=== PATIENT | female | born 1940 | race African-American/Black ===

== ENCOUNTER → 2016-10-01 | Outpatient (CLI) | payer BC, MEDICARE ==
[2016-10-01 08:19] LABS: ABSOLUTE BASOPHILS # (AUTO) 0.1 10^3/uL (0.0-0.2); ABSOLUTE EOSINOPHILS # (AUTO) 0.3 10^3/uL (0.0-0.6); ABSOLUTE LYMPHOCYTES (AUTO) 1.6 10^3/uL (0.5-4.7); ABSOLUTE MONOCYTES (AUTO) 0.5 10^3/uL (0.1-1.4); ABSOLUTE NEUT (AUTO) 3.5 10^3/uL (1.7-8.2); BASOPHILS % (AUTO) 0.9 % (0-2); EOSINOPHILS % (AUTO) 5.1 % (0-6); HEMATOCRIT 38.5 % (36.0-47.0); HEMOGLOBIN 13.1 g/dL (12.0-15.5); HGB HCT DIFFERENCE 0.8; LYMPHOCYTES % (AUTO) 26.3 % (13-45); MEAN CORPUSCULAR HEMOGLOBIN 29.9 pg (27.0-33.4); MEAN CORPUSCULAR HGB CONC 33.9 g/dL (32.0-36.0); MEAN CORPUSCULAR VOLUME 88 fl (80-97); MONOCYTES % (AUTO) 8.2 % (3-13); RED BLOOD COUNT 4.36 10^6/uL (3.72-5.28); RED CELL DISTRIBUTION WIDTH 14.3 % (11.5-14.0); SEGMENTED NEUTROPHILS % (AUTO) 59.5 % (42-78); WHITE BLOOD COUNT 5.9 10^3/uL (4.0-10.5)
[2016-10-01 08:39] LABS: ALANINE AMINOTRANSFERASE 22 U/L (9-52); ALKALINE PHOSPHATASE 102 U/L (38-126); ANION GAP 10 (5-19); ASPARTATE AMINO TRANSFERASE 19 U/L (14-36); BILIRUBIN,TOTAL 0.4 mg/dL (0.2-1.3); BLOOD UREA NITROGEN 14 mg/dL (7-20); CALCIUM 9.7 mg/dL (8.4-10.2); CARBON DIOXIDE 30 mmol/L (22-30); CHLORIDE 104 mmol/L (98-107); CHOLESTEROL 146.27 mg/dL (0-200); CREATININE RESULT 1.07 mg/dL (0.52-1.25); Direct HDL 56 mg/dL (>40); GLUCOSE 88 mg/dL (75-110); MAGNESIUM 1.9 mg/dL (1.6-2.3); POTASSIUM 4.4 mmol/L (3.6-5.0); SODIUM 143.6 mmol/L (137-145); TOTAL PROTEIN 7.3 g/dL (6.3-8.2); TRIGLYCERIDES 159 mg/dL (<150)
[2016-10-01 08:50] LABS: DIRECT LDL 63 mg/dL (<100)
[2016-10-01 08:56] LABS: VLDL CHOLESTEROL 31.8 mg/dL (10-31)
[2016-10-01 09:06] LABS: ERYTHROCYTE SEDIMENTATION RATE 40 mm/hr (0-30)
== END ==
LOC: OD 07:27
PROVIDERS: ATTEND Internal Medicine
DX: E11.9 Type 2 diabetes mellitus without complications (principal); J44.9 Chronic obstructive pulmonary disease, unspecified; I25.10 Atherosclerotic heart disease of native coronary artery without angina pectoris; E78.5 Hyperlipidemia, unspecified; M79.1 Myalgia
CPT/HCPCS: 36415; 80053; 80061; 83735; 84443; 85025; 85652

== ENCOUNTER → 2017-03-20 | Outpatient (CLI) | payer MEDICARE ==
[2017-03-20 15:20] LABS: ANION GAP 10 (5-19); BLOOD UREA NITROGEN 17 mg/dL (7-20); CALCIUM 9.6 mg/dL (8.4-10.2); CARBON DIOXIDE 25 mmol/L (22-30); CHLORIDE 104 mmol/L (98-107); CREATININE RESULT 1.26 mg/dL (0.52-1.25); GLUCOSE 98 mg/dL (75-110); POTASSIUM 4.3 mmol/L (3.6-5.0); SODIUM 138.9 mmol/L (137-145)
== END ==
LOC: OD 14:37
PROVIDERS: ATTEND Physician Assistant Surgical
DX: Z01.812 Encounter for preprocedural laboratory examination (principal); I70.90 Unspecified atherosclerosis; I10 Essential (primary) hypertension
CPT/HCPCS: 36415; 80048

== ENCOUNTER 2017-09-04 10:55 | Emergency (ER) | payer MEDICARE ==
[2017-09-04] MEDS ORDERED: ACETAMINOPHEN 325 MG TABLET PO ONE (11:34)
--- NOTE | 2017-09-04 11:37 | ER Document Report ---
ED Fall - General Chief Complaint: Fall Injury Stated Complaint: FALL/HEAD PAIN Time Seen by Provider: 09/04/17 11:33 Mode of Arrival: Ambulatory Information source: Patient Notes: Patient states she was getting in the "[employer] van" after a visit to her family doctor. She states she lost her balance and fell forward and hit her head and left knee on the steps of the band. She denies any other injuries. She denies loss of consciousness. She states she currently has a left-sided headache. Nothing makes it better or worse. It is moderate. It is throbbing. It is constant. She also has a mild left pain in her knee patient states she also feels hungry. TRAVEL OUTSIDE OF THE [place] IN LAST 30 DAYS: No - Related data Allergies/Adverse Reactions: No Known Allergies Allergy (Verified 09/04/17 11:05) Past Medical History - General Information source: Patient - Social History Smoking Status: Current Every Day Smoker Chew tobacco use (# tins/day): No Frequency of alcohol use: None Drug Abuse: None Family History: Reviewed & Not Pertinent Patient has suicidal ideation: No Patient has homicidal ideation: No - Past Medical History Cardiac Medical History: Reports: Hx Heart Attack, Hx Hypercholesterolemia, Hx Hypertension, Hx Peripheral Vascular Disease Pulmonary Medical History: Reports: Hx Bronchitis Denies: Hx Asthma, Hx COPD, Hx Pneumonia Endocrine Medical History: Reports: Hx Diabetes Mellitus Type 2 Renal/ Medical History: Denies: Hx Peritoneal Dialysis Past Surgical History: Reports: Hx Cholecystectomy, Hx Genitourinary Surgery - bladder lift, Hx Hysterectomy, Hx Tonsillectomy, Hx Vascular Surgery - Immunizations Hx Diphtheria, Pertussis, Tetanus Vaccination: Yes Hx Pneumococcal Vaccination: 09/23/09 Review of Systems - Review of Systems Constitutional: denies: Chills, Fever Cardiovascular: denies: Chest pain, Palpitations Respiratory: denies: Cough, Short of breath -: Yes All other systems reviewed and negative Physical Exam - Vital signs Vitals: Temp Pulse Resp BP Pulse Ox 98.6 F 63 18 180/76 H 95 09/04/17 11:24 09/04/17 11:24 09/04/17 11:24 09/04/17 11:24 09/04/17 11:24 Interpretation: Hypertensive - General General appearance: Appears well, Alert - HEENT Head: Normocephalic, Other - Patient has some mild swelling over the left frontal bone. It is tender to palpation. Eyes: Normal Pupils: PERRL - Respiratory Respiratory status: No respiratory distress Chest status: Nontender Breath sounds: Normal Chest palpation: Normal - Cardiovascular Rhythm: Regular Heart sounds: Normal auscultation Murmur: No - Abdominal Inspection: Normal Distension: No distension Bowel sounds: Normal Tenderness: Nontender Organomegaly: No organomegaly - Back Back: Normal, Nontender - Extremities General upper extremity: Normal inspection, Nontender, Normal color, Normal ROM , Normal temperature General lower extremity: Normal inspection, Tender, Normal color, Normal ROM, Normal temperature, Other - Left knee is tender to palpation.. No: Ericka's sign - Neurological Neuro grossly intact: Yes Cognition: Normal Orientation: AAOx4 [place] Coma Scale Eye Opening: Spontaneous Rhonda Coma Scale Verbal: Oriented Rhonda Coma Scale Motor: Obeys Commands [place] Coma Scale Total: 15 Speech: Normal Cranial nerves: Normal Motor strength normal: LUE, RUE, LLE, RLE Sensory: Normal - Psychological Associated symptoms: Normal affect, Normal mood - Skin Skin Temperature: Warm Skin Moisture: Dry Skin Color: Normal Course - Vital Signs Vital signs: Temp Pulse Resp BP Pulse Ox 98.6 F 63 18 180/76 H 100 09/04/17 11:24 09/04/17 11:29 09/04/17 11:29 09/04/17 11:24 09/04/17 11:29 - Diagnostic Test Radiology reviewed: Image reviewed, Reports reviewed - Head CT shows no evidence of acute pathology. Right knee x-ray has no evidence of fracture dislocation Discharge - Discharge Clinical Impression: Forehead contusion Qualifiers: Encounter type: initial encounter Qualified Code(s): S00.83XA - Contusion of other part of head, initial encounter Contusion of left knee Qualifiers: Encounter type: initial encounter Qualified Code(s): S80.02XA - Contusion of left knee, initial encounter Condition: Stable Disposition: HOME, SELF-CARE Instructions: Contusion ([facility]) Additional Instructions: Please call your primary care provider as soon as possible to arrange follow-up Prescriptions: Hydrocodone/Acetaminophen [[place] 5-325 mg Tablet] 1 tab PO Q6 PRN #12 tablet PRN Reason: Forms: Elevated Blood Pressure Referrals: DENIS SALGADO MD [ACTIVE STAFF] - Follow up as needed
--- NOTE | 2017-09-04 12:11 | RADIOLOGY REPORT (SQ) ---
EXAM DESCRIPTION: CT HEAD WITHOUT COMPLETED DATE/TIME: 09/04/2017 11:55 am REASON FOR STUDY: fall/pain COMPARISON: None. TECHNIQUE: Axial images acquired through the brain without intravenous contrast. Images reviewed wi th bone, brain and subdural windows. Images stored on PACS. All CT scanners at this facility use dose modulation, iterative reconstruction, and/or weight based d osing when appropriate to reduce radiation dose to as low as reasonably achievable (ALARA). [facility]: Dose Right [facility]: CareDose [facility]: Dose Right [facility]: Teradose 4D [facility]: [employer] RADIATION DOSE: CT Rad equipment meets quality standard of care and radiation dose reduction techniq ues were employed. CTDIvol: 64.6 mGy. DLP: 1163 mGy-cm. mGy. LIMITATIONS: None. FINDINGS: VENTRICLES: Normal size and contour. CEREBRUM: No masses. No hemorrhage. No midline shift. No evidence for acute infarction. Normal gra y/white matter differentiation. No areas of low density in the white matter. CEREBELLUM: No masses. No hemorrhage. No alteration of density. No evidence for acute infarction. EXTRAAXIAL SPACES: No fluid collections. No masses. ORBITS AND GLOBE: No intra- or extraconal masses. Normal contour of globe without masses. CALVARIUM: No fracture. PARANASAL SINUSES: No fluid or mucosal thickening. SOFT TISSUES: There is a left frontal scalp hematoma. OTHER: No other significant finding. IMPRESSION: Scalp hematoma. No acute intracranial finding. EVIDENCE OF ACUTE STROKE: NO. COMMENT: Quality ID # [id number]: Final reports with documentation of one or more dose reduction techniques (e.g., Automated exposure control, adjustment of the mA and/or kV according to patient size, use of iterative reconstruction technique) TECHNICAL DOCUMENTATION: JOB ID: [id number] [employer]- All Rights Reserved
--- NOTE | 2017-09-04 12:17 | RADIOLOGY REPORT (SQ) ---
EXAM DESCRIPTION: KNEE LEFT 4 VIEW COMPLETED DATE/TIME: 09/04/2017 12:09 pm REASON FOR STUDY: fall/pain COMPARISON: None. NUMBER OF VIEWS: Four views. TECHNIQUE: AP, lateral, and both oblique radiographic images acquired of the left knee. LIMITATIONS: None. FINDINGS: MINERALIZATION: Normal. BONES: No acute fracture or dislocation. No worrisome bone lesions. JOINT: There is narrowing the medial joint compartment with marginal osteophytes. And subchondral sc lerosis. SOFT TISSUES: No soft tissue swelling. No radio-opaque foreign body. OTHER: No other significant finding. IMPRESSION: Degenerative joint disease in the medial compartment. No acute abnormality. TECHNICAL DOCUMENTATION: JOB ID: [id number] [employer]- All Rights Reserved
[2017-09-04 13:09] VITALS: BP 165/70
== END 2017-09-04 13:08 | disposition home or self-care (01) ==
LOC: ER 10:55
DX: S00.83XA Contusion of other part of head, initial encounter (principal); S80.02XA Contusion of left knee, initial encounter; V58.4XXA Person boarding or alighting a pick-up truck or van injured in noncollision transport accident, initial encounter; F17.200 Nicotine dependence, unspecified, uncomplicated; E11.9 Type 2 diabetes mellitus without complications; I10 Essential (primary) hypertension; E78.00 Pure hypercholesterolemia, unspecified; Z90.49 Acquired absence of other specified parts of digestive tract; Z90.710 Acquired absence of both cervix and uterus; I25.2 Old myocardial infarction
CPT/HCPCS: 99284; 73562; 70450; A9270

== ENCOUNTER → 2017-11-29 | Outpatient (CLI) | payer MEDICARE ==
[2017-11-29 08:23] LABS: ABSOLUTE BASOPHILS # (AUTO) 0.1 10^3/uL (0.0-0.2); ABSOLUTE EOSINOPHILS # (AUTO) 0.2 10^3/uL (0.0-0.6); ABSOLUTE LYMPHOCYTES (AUTO) 1.1 10^3/uL (0.5-4.7); ABSOLUTE MONOCYTES (AUTO) 0.4 10^3/uL (0.1-1.4); ABSOLUTE NEUT (AUTO) 3.7 10^3/uL (1.7-8.2); BASOPHILS % (AUTO) 1.3 % (0-2); EOSINOPHILS % (AUTO) 3.5 % (0-6); HEMATOCRIT 39.3 % (36.0-47.0); HEMOGLOBIN 12.9 g/dL (12.0-15.5); LYMPHOCYTES % (AUTO) 20.2 % (13-45); MEAN CORPUSCULAR HEMOGLOBIN 29.5 pg (27.0-33.4); MEAN CORPUSCULAR HGB CONC 32.8 g/dL (32.0-36.0); MEAN CORPUSCULAR VOLUME 90 fl (80-97); MONOCYTES % (AUTO) 7.4 % (3-13); PLATELET COUNT 233 10^3/uL (150-450); RED BLOOD COUNT 4.37 10^6/uL (3.72-5.28); RED CELL DISTRIBUTION WIDTH 14.2 % (11.5-14.0); SEGMENTED NEUTROPHILS % (AUTO) 67.6 % (42-78); TOTAL CELLS COUNTED % (AUTO) 100 %; WHITE BLOOD COUNT 5.5 10^3/uL (4.0-10.5)
[2017-11-29 08:56] LABS: ALANINE AMINOTRANSFERASE 21 U/L (9-52); ALBUMIN 4.2 g/dL (3.5-5.0); ALKALINE PHOSPHATASE 94 U/L (38-126); ANION GAP 7 (5-19); ASPARTATE AMINO TRANSFERASE 18 U/L (14-36); BILIRUBIN,DIRECT 0.4 mg/dL (0.0-0.4); BILIRUBIN,TOTAL 0.7 mg/dL (0.2-1.3); BLOOD UREA NITROGEN 15 mg/dL (7-20); CALCIUM 10.2 mg/dL (8.4-10.2); CARBON DIOXIDE 28 mmol/L (22-30); CHLORIDE 108 mmol/L (98-107); CHOLESTEROL 147.83 mg/dL (0-200); GLUCOSE 97 mg/dL (75-110); POTASSIUM 4.6 mmol/L (3.6-5.0); SODIUM 143.4 mmol/L (137-145); TOTAL PROTEIN 7.1 g/dL (6.3-8.2); TRIGLYCERIDES 107 mg/dL (<150)
[2017-11-29 09:07] LABS: DIRECT LDL 69 mg/dL (<100)
[2017-11-30 12:37] LABS: CREATININE URINE 71.6 mg/dL (Not Estab.); MICROALBUMIN URINE 378.9 ug/mL (Not Estab.)
== END ==
LOC: OD 07:19
PROVIDERS: ATTEND Internal Medicine
DX: E11.9 Type 2 diabetes mellitus without complications (principal); I10 Essential (primary) hypertension; E78.5 Hyperlipidemia, unspecified; R53.83 Other fatigue
CPT/HCPCS: 36415; 80053; 80061; 82043; 82570; 83036; 84443; 85025

== ENCOUNTER 2018-03-02 14:12 | Inpatient (IN) | payer MEDICARE ==
[2018-03-02] MEDS ORDERED: ONDANSETRON 4 MG TAB.RAPDIS PO ONE (14:29)
[2018-03-02] MEDS ORDERED: NORMAL SALINE 1000 ML 1,000 ML IV ONE (14:29)
[2018-03-02] MEDS ORDERED: METOCLOPRAMIDE HCL INJ/PF 10 MG/2 ML SDV IV ONE (14:31)
[2018-03-02] MEDS ORDERED: DIPHENHYDRAMINE HCL 50 MG/ML VIAL IV ONE (14:32)
--- NOTE | 2018-03-02 14:35 | ER Document Report ---
ED Medical Screen (RME) - General Chief Complaint: Abdominal Pain Stated Complaint: BLOOD IN URINE Time Seen by Provider: 03/02/18 14:29 Mode of Arrival: Wheelchair Information source: Patient Notes: This is a 77-year-old female with a history of hypertension, diabetes, dyslipidemia who presents to the emergency room with left flank and left lower quadrant tenderness and association with hematuria, nausea and vomiting. Patient denies fever. Patient's symptoms started yesterday. TRAVEL OUTSIDE OF THE [place] IN LAST 30 DAYS: No - Related Data Allergies/Adverse Reactions: No Known Allergies Allergy (Verified 03/02/18 14:13) Past Medical History - Social History Chew tobacco use (# tins/day): No Frequency of alcohol use: None Drug Abuse: None - Past Medical History Cardiac Medical History: Reports: Hx Heart Attack, Hx Hypercholesterolemia, Hx Hypertension, Hx Peripheral Vascular Disease Pulmonary Medical History: Reports: Hx Bronchitis Denies: Hx Asthma, Hx COPD, Hx Pneumonia Endocrine Medical History: Reports: Hx Diabetes Mellitus Type 2 Renal/ Medical History: Denies: Hx Peritoneal Dialysis Past Surgical History: Reports: Hx Cholecystectomy, Hx Genitourinary Surgery - bladder lift, Hx Hysterectomy, Hx Tonsillectomy, Hx Vascular Surgery - Immunizations Hx Diphtheria, Pertussis, Tetanus Vaccination: Yes Physical Exam - Vital signs Vitals: Temp Pulse Resp BP Pulse Ox 98.3 F 113 H 20 211/112 H 96 03/02/18 14:17 03/02/18 14:17 03/02/18 14:17 03/02/18 14:17 03/02/18 14:17 Course - Vital Signs Vital signs: Temp Pulse Resp BP Pulse Ox 98.3 F 113 H 20 211/112 H 96 03/02/18 14:17 03/02/18 14:17 03/02/18 14:17 03/02/18 14:17 03/02/18 14:17 Doctor's Discharge - Discharge Referrals: DENIS SALGADO MD [Primary Care Provider] - Follow up as needed
[2018-03-02 15:05] LABS: INTERNATIONAL RATION (INR) 0.91; PROTHROMBIN TIME 12.8 SEC (11.4-15.4)
[2018-03-02 15:09] LABS: ABSOLUTE BASOPHILS # (AUTO) 0.1 10^3/uL (0.0-0.2); ABSOLUTE EOSINOPHILS # (AUTO) 0.1 10^3/uL (0.0-0.6); ABSOLUTE LYMPHOCYTES (AUTO) 1.5 10^3/uL (0.5-4.7); ABSOLUTE MONOCYTES (AUTO) 0.6 10^3/uL (0.1-1.4); ABSOLUTE NEUT (AUTO) 4.6 10^3/uL (1.7-8.2); BASOPHILS % (AUTO) 0.9 % (0-2); EOSINOPHILS % (AUTO) 1.2 % (0-6); HEMATOCRIT 37.5 % (36.0-47.0); HEMOGLOBIN 12.9 g/dL (12.0-15.5); LYMPHOCYTES % (AUTO) 21.7 % (13-45); MEAN CORPUSCULAR HEMOGLOBIN 30.7 pg (27.0-33.4); MEAN CORPUSCULAR HGB CONC 34.4 g/dL (32.0-36.0); MEAN CORPUSCULAR VOLUME 89 fl (80-97); PLATELET COUNT 286 10^3/uL (150-450); RED CELL DISTRIBUTION WIDTH 14.4 % (11.5-14.0); SEGMENTED NEUTROPHILS % (AUTO) 67.2 % (42-78); TOTAL CELLS COUNTED % (AUTO) 100 %; WHITE BLOOD COUNT 6.8 10^3/uL (4.0-10.5)
[2018-03-02 15:21] LABS: ALANINE AMINOTRANSFERASE 22 U/L (9-52); ALBUMIN 4.6 g/dL (3.5-5.0); ALKALINE PHOSPHATASE 107 U/L (38-126); ANION GAP 15 (5-19); ASPARTATE AMINO TRANSFERASE 22 U/L (14-36); BILIRUBIN,DIRECT 0.3 mg/dL (0.0-0.4); BILIRUBIN,TOTAL 0.8 mg/dL (0.2-1.3); BLOOD UREA NITROGEN 12 mg/dL (7-20); CALCIUM 10.5 mg/dL (8.4-10.2); CARBON DIOXIDE 25 mmol/L (22-30); CHLORIDE 102 mmol/L (98-107); GLUCOSE 120 mg/dL (75-110); POTASSIUM 3.5 mmol/L (3.6-5.0); SODIUM 141.6 mmol/L (137-145); TOTAL PROTEIN 7.9 g/dL (6.3-8.2)
[2018-03-02 15:36] LABS: APPEARANCE,URINE CLOUDY; BILIRUBIN,URINE NEGATIVE (NEGATIVE); COLOR,URINE YELLOW; GLUCOSE, URINE NEGATIVE (NEGATIVE); KETONES,URINE NEGATIVE (NEGATIVE); LEUKOCYTE ESTERASE,URINE NEGATIVE (NEGATIVE); NITRITE,URINE NEGATIVE (NEGATIVE); PROTEIN,URINE 100 mg/dL (NEGATIVE); UROBILINOGEN,URINE NEGATIVE mg/dL (<2.0)
--- NOTE | 2018-03-02 15:42 | ER Document Report ---
ED GI/ - General Chief Complaint: Abdominal Pain Stated Complaint: BLOOD IN URINE Time Seen by Provider: 03/02/18 14:29 Mode of Arrival: Wheelchair Notes: Patient says that she is experiencing pain in the left front side area starting yesterday and then also noting some blood in her urine beginning yesterday which continues today. Patient had a similar occurrence about 2 years ago and it lasted a couple of days and went away. She has not had any fever. No nausea or vomiting or diarrhea. Denies any chest pains. Denies shortness of breath or difficulty breathing. She only has blood in her urine but no other UTI symptoms. Has never had kidney stones. Patient has had a hysterectomy, cholecystectomy, bladder surgery, and think she may have had her appendix removed. Patient did not take her blood pressure medicines this morning. She is on losartan 100 mg daily. TRAVEL OUTSIDE OF THE [place] IN LAST 30 DAYS: No - Related Data Allergies/Adverse Reactions: No Known Allergies Allergy (Verified 03/02/18 14:13) Past Medical History - General Information source: Patient - Social History Smoking Status: Current Every Day Smoker Chew tobacco use (# tins/day): No Frequency of alcohol use: None Drug Abuse: None Family History: Reviewed & Not Pertinent Patient has suicidal ideation: No Patient has homicidal ideation: No - Past Medical History Cardiac Medical History: Reports: Hx Heart Attack, Hx Hypercholesterolemia, Hx Hypertension, Hx Peripheral Vascular Disease Pulmonary Medical History: Reports: Hx Bronchitis Neurological Medical History: Reports: Other - Neuropathy Endocrine Medical History: Reports: Hx Diabetes Mellitus Type 2 Renal/ Medical History: Denies: Hx End Stage Renal Disease, Hx Renal Insufficiency Malignancy Medical History: Reports: None GI Medical History: Reports: Hx Gastroesophageal Reflux Disease Past Surgical History: Reports: Hx Cholecystectomy, Hx Genitourinary Surgery - bladder lift, Hx Hysterectomy, Hx Tonsillectomy, Hx Vascular Surgery - Immunizations Hx Diphtheria, Pertussis, Tetanus Vaccination: Yes Hx Pneumococcal Vaccination: 09/23/09 Review of Systems - Review of Systems Notes: REVIEW OF SYSTEMS: CONSTITUTIONAL : Denies fever. EENT: Denies eye, ear, nose or mouth or throat pain or other symptoms. CARDIOVASCULAR: Denies chest pain. RESPIRATORY: Denies cough, chest congestion, or shortness of breath. GASTROINTESTINAL: See HPI. Not passing any blood in bowel movements. GENITOURINARY: Denies difficulty or painful urinating, urinary frequency, just blood in urine. See HPI. MUSCULOSKELETAL: Denies back or neck pain. Denies joint pain or swelling. SKIN: Denies rash or skin lesions. NEUROLOGICAL: Denies LOC or altered mental status. Denies headache. Denies sensory loss or motor deficits. ALL OTHER SYSTEMS REVIEWED AND NEGATIVE. Physical Exam - Vital signs Vitals: Temp Pulse Resp BP Pulse Ox 98.3 F 113 H 20 211/112 H 96 03/02/18 14:17 03/02/18 14:17 03/02/18 14:17 03/02/18 14:17 03/02/18 14:17 Interpretation: Hypertensive, Tachycardic - Notes Notes: PHYSICAL EXAMINATION: GENERAL: Well-appearing, in no acute distress. Blood pressure 211/112. Pulse 113 in triage. HEAD: Atraumatic, normocephalic. EYES: Pupils equal round and reactive to light, extraocular movements intact. NECK: Normal range of motion, supple. LUNGS: Breath sounds clear and equal bilaterally. HEART: Regular rate and rhythm without murmurs. Not tachycardic, heart rate 90 at bedside by me. ABDOMEN: Soft, not very tender anywhere. No guarding or rebound. No masses. No bruits heard. BACK: No tenderness throughout entire back. EXTREMITIES: Normal range of motion without pain. NEUROLOGICAL: Normal speech, normal gait. Normal sensory, motor, and reflex exams. Awake, alert, and oriented x3. Cranial nerves normal. PSYCH: Normal mood, normal affect. SKIN: Warm, dry, no rashes. Course - Re-evaluation Re-evalutation: 03/02/18 18:12 Patient's urinalysis is loaded with red blood cells but no bacteria. Does have some white cells present. 03/02/18 18:[address] shows significant mass in the right upper pole of the right kidney which looks likely to be some form of cancer. Involvement of the ureter and bladder appears likely. The left kidney appears to be atrophic. Patient also has a infrarenal abdominal aortic aneurysm measuring 3.3 x 3 cm. Also present is a ventral hernia containing transverse colon without obstruction and constipation Spoke with on-call urology, Dr. Pena, and he will see the patient and recommend disposition. I have made patient aware of her CT findings that indicate some form of tumor or cancer. 03/02/18 18:45 Patient was seen by Dr Pena, spoke with hospitalist who will admit the patient. - Vital Signs Vital signs: Temp Pulse Resp BP Pulse Ox 98.3 F 113 H 18 146/95 H 94 03/02/18 14:17 03/02/18 14:17 03/02/18 17:01 03/02/18 17:01 03/02/18 17:01 - Laboratory Result Diagrams: 03/02/18 14:50 03/02/18 14:50 Laboratory results interpreted by me: 03/02/18 03/02/18 03/02/18 14:50 14:50 14:50 RDW 14.4 H Potassium 3.5 L Est GFR (Non-Af Amer) 58 L Glucose 120 H Calcium 10.5 H Urine Protein 100 H Urine Blood LARGE H Discharge - Discharge Clinical Impression: Hematuria, Kidney malignant neoplasm Condition: Stable Disposition: ADMITTED INPATIENT Admitting Provider: Hospitalist Unit Admitted: Medical Floor Referrals: DENIS SALGADO MD [Primary Care Provider] - Follow up as needed
[2018-03-02] MEDS ORDERED: LOSARTAN POTASSIUM 50 MG TABLET PO ONE (15:47)
--- NOTE | 2018-03-02 17:22 | RADIOLOGY REPORT (SQ) ---
EXAM DESCRIPTION: CT ABD/PELVIS WITH IV ONLY COMPLETED DATE/TIME: 03/02/2018 4:35 pm REASON FOR STUDY: Left side and flank pain with hematuria . Left upper and left lower quadrant pain . COMPARISON: None. TECHNIQUE: CT scan of the abdomen and pelvis performed using helical scanning technique with dynamic intravenous contrast injection. No oral contrast. Images reviewed with lung, soft tissue, and bone windows. Reconstructed coronal and sagittal MPR images reviewed. Delayed images for evaluation of the urinary system also acquired. All images stored on PACS. All CT scanners at this facility use dose modulation, iterative reconstruction, and/or weight based d osing when appropriate to reduce radiation dose to as low as reasonably achievable (ALARA). [facility]: Dose Right [facility]: CareDose [facility]: Dose Right [facility]: Teradose 4D [facility]: [employer] CONTRAST TYPE AND DOSE: contrast/concentration: Isovue 370.00 mg/ml; Total Contrast Delivered: 62.0 ml; Total Saline Delivered: 65.0 ml RENAL FUNCTION: Creatinine: 0.94. RADIATION DOSE: CT Rad equipment meets quality standard of care and radiation dose reduction techniq ues were employed. CTDIvol: 5.0 - 6.2 mGy. DLP: 515 mGy-cm.. LIMITATIONS: None. FINDINGS: LOWER CHEST: No abnormality seen. LIVER: Small rounded areas of decreased attenuation in right and left lobes of liver too small to nidhi racterize. SPLEEN: No abnormality. . PANCREAS: No abnormality. GALLBLADDER: Status post cholecystectomy. ADRENAL GLANDS: Both adrenals are prominent consistent with hyperplasia. RIGHT KIDNEY AND URETER: There is evidence of a heterogeneous mass in the upper pole of the right kid evelyn with associated distortion of the right upper collecting system. There are calcifications in the region of the upper pole collecting system. The finding could represent tumor invasion from the col lecting system into the kidney versus primary renal tumor invading the collecting system. There is a n extrarenal pelvis of the right kidney and a ectasia of the proximal right ureter. The renal pelvis demonstrates increased attenuation send suggesting hemorrhage within the collecting system or mass. LEFT KIDNEY AND URETER: There is an atrophic left kidney with poor excretion. The findings are most consistent with changes of chronic ischemia of the left kidney with poor function. Renal vascular ca lcification and calcification in the left renal artery noted. There is evidence of areas of decrease d attenuation in the renal parenchyma which could be secondary to infarction and less likely infectio n. AORTA AND VESSELS: There is a saccular aneurysm of the infrarenal abdominal aorta measuring 3.3 cm i n transverse diameter by 3 cm in AP diameter. Diffuse atherosclerotic change of the abdominal aorta with atherosclerotic stenosis of origin of the celiac artery, diffuse atherosclerotic change superio r mesenteric artery, and and occlusion of proximal inferior mesenteric artery noted. There is a ecta howie of the proximal iliac arteries. Diffuse atherosclerotic change within the external/internal wilbert c arteries and femoral arteries noted. APPENDIX: Absent by history. LARGE AND SMALL BOWEL: Constipation. RETROPERITONEUM: There is no retroperitoneal adenopathy. ABDOMINAL WALL: Prominent ventral hernia of the anterior abdominal wall containing transverse colon. Changes of constipation. PELVIS: URINARY BLADDER: There is a focal ovoid area of increased attenuation posterior right 8th u rinary bladder. The possibility of mass and/or possibly hemorrhage in the bladder cannot be excluded . Otherwise the urinary bladder is mildly distended and demonstrating no significant additional abdo men modalities. UTERUS: Absent. BONES: Thoracic and lumbar spondylosis. . IMPRESSION: 1. There is evidence of marked distortion of the collecting system of the right kidney with adjacent mass extending into the upper pole of the right kidney. The findings could represent t ransition cell carcinoma invading the kidney or renal cell carcinoma of the upper pole of the right k idney invading the collecting system. There is a prominent extrarenal pelvis on the right with hyper density in the collecting system and proximal ureter with possible due mass and/or hemorrhage not ex cluded. There is a focal area of increased density noted in the posterior right side of the urinary bladder with hemorrhage or mass not excluded. consultation recommended. 2. Findings consistent with atrophic poorly functioning left kidney most consistent with chronic isc hemic change. Changes of the renal parenchyma could be secondary to renal infarction. 3. Diffuse significant atherosclerotic change of the entire aorta iliac and femoral vessels with fus iform aneurysm infrarenal abdominal aorta are measuring 3.3 x 3 cm. 4. Evidence of a ventral hernia containing transverse colon without obstruction. Constipation. TECHNICAL DOCUMENTATION: JOB ID: [id number]-69 Quality ID # [id number]: Final reports with documentation of one or more dose reduction techniques (e.g., Au tomated exposure control, adjustment of the mA and/or kV according to patient size, use of iterative reconstruction technique) 2010 [employer]- All Rights Reserved Reading location - IP/workstation name: [email or web address]
[2018-03-02] MEDS ORDERED: DEXTROSE 50%-WATER 25 GM/50 ML DISP.SYRIN IV PRN ×4 (19:29)
[2018-03-02] MEDS ORDERED: GLUCAGON,HUMAN RECOMB 1 MG INJ IM PRN (19:29)
[2018-03-02] MEDS ORDERED: DEXTROSE 40% GEL 15 GM TUBE PO PRN ×4 (19:29)
[2018-03-02] MEDS ORDERED: IPRATROPIUM/ALBUTEROL 0.5-2.5 MG/3 ML AMPUL NEB PRN (19:29)
[2018-03-02] MEDS ORDERED: GLUCAGON,HUMAN RECOMB 1 MG INJ SUBCUT PRN (19:29)
[2018-03-02] MEDS ORDERED: ACETAMINOPHEN 325 MG TABLET PO PRN (19:29)
[2018-03-02] MEDS ORDERED: MAGNESIUM HYDROXIDE SUSP 30 ML UDCUP PO ONE (19:33)
[2018-03-02] MEDS: NORMAL SALINE 1000 ML 1,000 ML IV PRN (20:46)
[2018-03-02] MEDS ORDERED: NICOTINE 7 MG/24 HR PATCH.TD24 TD ONE (21:45)
[2018-03-02] MEDS: HEPARIN SOD (PORCINE) 5,000 UNIT/ML 1 ML SYRINGE SUBCUT SCH (22:25)
[2018-03-02] MEDS: ENALAPRILAT DIHYDRATE INJ/PF 1.25 MG/1 ML SDV IV PRN (22:25)
[2018-03-03] MEDS ORDERED: HYDRALAZINE HCL INJ/PF 20 MG/1 ML SDV ONE (00:29)
--- NOTE | 2018-03-03 00:45 | PDOC H&P ---
History of Present Illness Admission Date/PCP: 03/02/18 19:12 DENIS SALGADO, Patient complains of: Bloody urine History of Present Illness: JERILYN MCCARTY is a 77 year old female with history of diabetes, hypertension, COPD , chronic bronchitis and tobacco dependence. Presenting with 24 hours of constipation, hematuria associated with left lower quadrant pain. She denies fever chills she has had some nausea without vomiting. In the emergency room she is found to have hematuria, constipation and CT abdomen pelvis reveals masses of the right kidney, ureter and bladder. She receives symptomatic management and is referred to the hospitalist for admission. Patient recalls one previous episode several years ago which was short lived and resolved spontaneously without intervention. She denies any new medication use or anticoagulation. Past Medical History Cardiac Medical History: Reports: Myocardial Infarction, Hyperlipidema, Hypertension, Peripheral Vascular Disease Pulmonary Medical History: Reports: Bronchitis Denies: Asthma, Chronic Obstructive Pulmonary Disease (COPD), Pneumonia Neurological Medical History: Reports: Other - Neuropathy Endocrine Medical History: Reports: Diabetes Mellitus Type 2 Renal/ Medical History: Denies: End Stage Renal Disease Malignancy Medical History: Reports: None GI Medical History: Reports: Gastroesophageal Reflux Disease Past Surgical History Past Surgical History: Reports: Cholecystectomy, Hysterectomy, Tonsillectomy, Vascular Surgery Social History Information Source: Patient, [facility] Records Smoking Status: Current Every Day Smoker Frequency of Alcohol Use: None Hx Recreational Drug Use: No Drugs: None Hx Prescription Drug Abuse: No - Advance Directive Resuscitation Status: Full Code Family History Family History: Reviewed & Not Pertinent Parental Family History Reviewed: Yes Children Family History Reviewed: Yes Sibling(s) Family History Reviewed.: Yes Medication/Allergy Home Medications: Albuterol Sulfate [Ventolin HFA MDI 18 GM] 1 puff IH Q4HP PRN #17 gm 12/29/12 Aspirin [Aspirin 81 mg Chewable Tablet] 81 mg PO DAILY 07/17/15 Atorvastatin Calcium [Lipitor 80 mg Tablet] 80 mg PO DAILY 07/17/15 Gabapentin [Neurontin 300 mg Capsule] 300 mg PO BID 07/17/15 Metformin HCl [Glucophage 500 mg Tablet] 500 mg PO BID 07/17/15 Metoprolol Succinate [Toprol XL 100 mg Tablet] 100 mg PO DAILY 07/17/15 Omeprazole [Prilosec] 20 mg PO DAILY 07/17/15 Albuterol Sulfate [Proair HFA Inhalation Aerosol 8.5 gm MDI] 2 puff IH QIDP PRN #0 hfa.aer.ad 07/18/15 Aspirin [Aspirin 81 mg Chewable Tablet] 81 mg PO QHS #0 tab.chew 07/18/15 Atorvastatin Calcium [Lipitor 80 mg Tablet] 80 mg PO QHS #0 tablet 07/18/15 Gabapentin [Neurontin 300 mg Capsule] 300 mg PO Q12 #0 capsule 07/18/15 Lisinopril [Prinivil 10 mg Tablet] 10 mg PO DAILY #0 tablet 07/18/15 Metformin HCl [Glucophage 500 mg Tablet] 500 mg PO BIDACBS #0 tablet 07/18/15 Metoprolol Tartrate [Lopressor 50 mg Tablet] 50 mg PO Q12 #0 tablet 07/18/15 Hydrocodone/Acetaminophen [[place] 5-325 mg Tablet] 1 tab PO Q6 PRN #12 tablet Allergies/Adverse Reactions: No Known Allergies Allergy (Verified 03/02/18 14:13) Review of Systems Constitutional: PRESENT: as per HPI, anorexia, fatigue, weakness, weight loss. ABSENT: fever(s), headache(s), night sweats Eyes: ABSENT: visual disturbances Ears: ABSENT: hearing changes Cardiovascular: ABSENT: chest pain, dyspnea on exertion, edema, orthropnea, palpitations Respiratory: PRESENT: as per HPI, cough, other - Chronic nonproductive cough Gastrointestinal: PRESENT: as per HPI, constipation, nausea Genitourinary: PRESENT: as per HPI, hematuria Musculoskeletal: ABSENT: joint swelling Integumentary: ABSENT: rash, wounds Neurological: ABSENT: abnormal gait, abnormal speech, confusion, dizziness, focal weakness, syncope Psychiatric: ABSENT: anxiety, depression, homidical ideation, suicidal ideation Endocrine: ABSENT: cold intolerance, heat intolerance, polydipsia, polyuria Hematologic/Lymphatic: ABSENT: easy bleeding, easy bruising Physical Exam Vital Signs: Temp Pulse Resp BP Pulse Ox 98.3 F 113 H 16 153/89 H 91 L 03/02/18 14:17 03/02/18 14:17 03/02/18 23:01 03/02/18 23:01 03/02/18 23:01 General appearance: PRESENT: cooperative, mild distress. ABSENT: hard of hearing, severe distress Head exam: PRESENT: atraumatic, normocephalic Eye exam: PRESENT: conjunctiva pink, EOMI, PERRLA. ABSENT: scleral icterus Ear exam: PRESENT: normal external ear exam Mouth exam: PRESENT: moist, tongue midline Neck exam: ABSENT: carotid bruit, JVD, lymphadenopathy, thyromegaly Respiratory exam: PRESENT: crackles, prolonged expiratory phas, symmetrical. ABSENT: rhonchi, stridor, tachypnea Cardiovascular exam: PRESENT: RRR. ABSENT: diastolic murmur, rubs, systolic murmur Pulses: PRESENT: normal dorsalis pedis pul Vascular exam: PRESENT: normal capillary refill GI/Abdominal exam: PRESENT: hypoactive bowel sounds, tenderness - Left lower quadrant. ABSENT: ascites, distended, firm, rebound Rectal exam: PRESENT: deferred Extremities exam: PRESENT: full ROM. ABSENT: calf tenderness, clubbing, pedal edema Neurological exam: PRESENT: alert, awake, oriented to person, oriented to place , oriented to time, oriented to situation, CN II-XII grossly intact. ABSENT: motor sensory deficit Psychiatric exam: PRESENT: appropriate affect, normal mood. ABSENT: homicidal ideation, suicidal ideation Skin exam: PRESENT: dry, intact, warm. ABSENT: cyanosis, rash Results Impressions: Abdomen/Pelvis CT 03/02/18 15:50 IMPRESSION: 1. There is evidence of marked distortion of the collecting system of the right kidney with adjacent mass extending into the upper pole of the right kidney. The findings could represent transition cell carcinoma invading the kidney or renal cell carcinoma of the upper pole of the right kidney invading the collecting system. There is a prominent extrarenal pelvis on the right with hyperdensity in the collecting system and proximal ureter with possible due mass and/or hemorrhage not excluded. There is a focal area of increased density noted in the posterior right side of the urinary bladder with hemorrhage or mass not excluded. consultation recommended. 2. Findings consistent with atrophic poorly functioning left kidney most consistent with chronic ischemic change. Changes of the renal parenchyma could be secondary to renal infarction. 3. Diffuse significant atherosclerotic change of the entire aorta iliac and femoral vessels with fusiform aneurysm infrarenal abdominal aorta are measuring 3.3 x 3 cm. 4. Evidence of a ventral hernia containing transverse colon without obstruction. Constipation. Assessment & Plan - Diagnosis (1) Kidney malignant neoplasm Is this a current diagnosis for this admission?: Yes Plan: Telemetry admission, hydration, urology and oncology consult. (2) Hematuria Is this a current diagnosis for this admission?: Yes Plan: Secondary to #1, follow-up PT/INR and a.m. CBC (3) Constipation Is this a current diagnosis for this admission?: Yes Plan: Lactulose and Colace (4) Diabetes Is this a current diagnosis for this admission?: Yes Plan: Home regiment with Humalog sliding scale (5) COPD exacerbation Is this a current diagnosis for this admission?: Yes Plan: Incentive spirometry and DuoNeb scheduled. Encourage incentive spirometry (6) Hypertensive urgency Is this a current diagnosis for this admission?: Yes Plan: Without tachycardia, home regiment with as needed Vasotec and hydralazine. - Time Time Spent: 50 to 70 Minutes - Inpatient Certification Medical Necessity: Need Close Monitoring Due to Risk of Patient Decompensation
[2018-03-03] MEDS: HYDRALAZINE HCL INJ/PF 20 MG/1 ML SDV IV PRN ×4 (01:04→23:54)
[2018-03-03] MEDS: ONDANSETRON HCL INJ/PF 4 MG/2 ML SDV IV PRN ×4 (01:53→20:13)
[2018-03-03] MEDS: FENTANYL CITRATE INJ/PF 100 MCG/2 ML AMPUL IV PRN ×2 (02:43→08:27)
[2018-03-03] MEDS: NORMAL SALINE 1000 ML 1,000 ML IV PRN (02:44)
[2018-03-03] MEDS ORDERED: NITROGLYCERIN 2% OINTMENT 1 GM PACKET ONE (03:31)
[2018-03-03] MEDS ORDERED: NITROGLYCERIN 2% OINTMENT 1 GM PACKET TP ONE (03:45)
[2018-03-03] MEDS ORDERED: FUROSEMIDE INJ/PF 40 MG/4 ML SDV IV ONE (03:45)
[2018-03-03] MEDS: ENALAPRILAT DIHYDRATE INJ/PF 1.25 MG/1 ML SDV IV PRN (04:54)
[2018-03-03 05:32] LABS: ABSOLUTE LYMPHOCYTES (AUTO) 0.6 10^3/uL (0.5-4.7); ABSOLUTE MONOCYTES (AUTO) 0.4 10^3/uL (0.1-1.4); ABSOLUTE NEUT (AUTO) 7.9 10^3/uL (1.7-8.2); BASOPHILS % (AUTO) 0.4 % (0-2); EOSINOPHILS % (AUTO) 0.2 % (0-6); HEMATOCRIT 38.7 % (36.0-47.0); HEMOGLOBIN 13.1 g/dL (12.0-15.5); LYMPHOCYTES % (AUTO) 7.2 % (13-45); MEAN CORPUSCULAR HEMOGLOBIN 30.6 pg (27.0-33.4); MEAN CORPUSCULAR HGB CONC 33.9 g/dL (32.0-36.0); MEAN CORPUSCULAR VOLUME 90 fl (80-97); MONOCYTES % (AUTO) 4.4 % (3-13); PLATELET COUNT 257 10^3/uL (150-450); RED BLOOD COUNT 4.29 10^6/uL (3.72-5.28); RED CELL DISTRIBUTION WIDTH 14.7 % (11.5-14.0); SEGMENTED NEUTROPHILS % (AUTO) 87.8 % (42-78); TOTAL CELLS COUNTED % (AUTO) 100 %
[2018-03-03 05:55] LABS: ANION GAP 16 (5-19); BLOOD UREA NITROGEN 12 mg/dL (7-20); CALCIUM 9.8 mg/dL (8.4-10.2); CARBON DIOXIDE 26 mmol/L (22-30); CHLORIDE 102 mmol/L (98-107); GLUCOSE 158 mg/dL (75-110); POTASSIUM 3.1 mmol/L (3.6-5.0); SODIUM 144.3 mmol/L (137-145)
[2018-03-03] MEDS: HEPARIN SOD (PORCINE) 5,000 UNIT/ML 1 ML SYRINGE SUBCUT SCH ×3 (06:06→21:10)
[2018-03-03] MEDS: IPRATROPIUM/ALBUTEROL 0.5-2.5 MG/3 ML AMPUL NEB SCH ×2 (08:24→16:18)
[2018-03-03] MEDS ORDERED: NORMAL SALINE 1000 ML 1,000 ML IV PRN (08:39)
--- NOTE | 2018-03-03 08:44 | PDOC PROGRESS REPORT ---
Subjective Progress Note for:: 03/03/18 Subjective:: The patient continues to have abdominal pain. We might be dealing with an incarcerated abdominal hernia. Surgery was consulted by hematology oncology. Reason For Visit: RIGHT RENAL, BLADDER MASS,HTN URGENCY Physical Exam Vital Signs: Temp Pulse Resp BP Pulse Ox 99.2 F 97 18 181/76 H 97 03/03/18 07:13 03/03/18 07:13 03/03/18 07:13 03/03/18 07:13 03/03/18 07:13 Intake & Output 03/02/18 03/03/18 03/04/18 06:59 06:59 06:59 Intake Total 1250 Output Total 600 Balance 650 Weight 58.4 kg General appearance: PRESENT: severe distress Head exam: PRESENT: atraumatic Eye exam: PRESENT: conjunctival injection Mouth exam: PRESENT: dry mucosa Neck exam: PRESENT: carotid bruit. ABSENT: JVD Cardiovascular exam: PRESENT: RRR, +S1, +S2 Pulses: PRESENT: +1 pedal pulses bilateral GI/Abdominal exam: PRESENT: tenderness. ABSENT: guarding Extremities exam: PRESENT: full ROM Musculoskeletal exam: PRESENT: ambulatory Neurological exam: PRESENT: alert, awake Psychiatric exam: PRESENT: anxious Results Laboratory Results: 03/03/18 04:37 03/03/18 04:37 03/03/18 03/03/18 04:37 04:37 WBC 9.0 RBC 4.29 Hgb 13.1 Hct 38.7 MCV 90 MCH 30.6 MCHC 33.9 RDW 14.7 H Plt Count 257 Seg Neutrophils % 87.8 H Lymphocytes % 7.2 L Monocytes % 4.4 Eosinophils % 0.2 Basophils % 0.4 Absolute Neutrophils 7.9 Absolute Lymphocytes 0.6 Absolute Monocytes 0.4 Absolute Eosinophils 0.0 Absolute Basophils 0.0 Sodium 144.3 Potassium 3.1 L Chloride 102 Carbon Dioxide 26 Anion Gap 16 BUN 12 Creatinine 0.95 Est GFR ( Amer) > 60 Est GFR (Non-Af Amer) 57 L Glucose 158 H Calcium 9.8 Impressions: Abdomen/Pelvis CT 03/02/18 15:50 IMPRESSION: 1. There is evidence of marked distortion of the collecting system of the right kidney with adjacent mass extending into the upper pole of the right kidney. The findings could represent transition cell carcinoma invading the kidney or renal cell carcinoma of the upper pole of the right kidney invading the collecting system. There is a prominent extrarenal pelvis on the right with hyperdensity in the collecting system and proximal ureter with possible due mass and/or hemorrhage not excluded. There is a focal area of increased density noted in the posterior right side of the urinary bladder with hemorrhage or mass not excluded. consultation recommended. 2. Findings consistent with atrophic poorly functioning left kidney most consistent with chronic ischemic change. Changes of the renal parenchyma could be secondary to renal infarction. 3. Diffuse significant atherosclerotic change of the entire aorta iliac and femoral vessels with fusiform aneurysm infrarenal abdominal aorta are measuring 3.3 x 3 cm. 4. Evidence of a ventral hernia containing transverse colon without obstruction. Constipation.
--- NOTE | 2018-03-03 08:45 | PDOC CONSULTATION ---
Consultation Consult Date: 03/03/18 Attending physician:: DENIS SALGADO Consult reason:: R kidney mass, upper ureter, bladder History of Present Illness Admission Date/PCP: 03/02/18 19:12 DENIS SALGADO, Patient complains of: LLQ pain, n/v, constipation, hematuria History of Present Illness: JERILYN MCCARTY is a 77 year old female with recent history of left abdominal pain. She has a known left ventral hernia, and she notes that over the last few years it has given her some discomfort. However, over the last 2 days she has had severe pain, uncontrolled, nausea and vomiting, she is also had a few month history of hematuria, in the last couple weeks she has had it more frequently, upon admission she had CT of the abdomen pelvis, this indicated a right kidney mass, involving the ureter, there may be a bladder mass as well, the left kidney is atrophic, of note she does have a ventral hernia containing transverse colon and chronic constipation noted. This morning she still having quite a bit of abdominal pain, tenderness to palpation of the area of hernia, she is unable to tolerate p.o. right now. Past Medical History Cardiac Medical History: Reports: Myocardial Infarction, Hyperlipidema, Hypertension, Peripheral Vascular Disease Pulmonary Medical History: Reports: Bronchitis Denies: Asthma, Chronic Obstructive Pulmonary Disease (COPD), Pneumonia Neurological Medical History: Reports: Other - Neuropathy Endocrine Medical History: Reports: Diabetes Mellitus Type 2 Renal/ Medical History: Denies: End Stage Renal Disease Malignancy Medical History: Reports: None GI Medical History: Reports: Gastroesophageal Reflux Disease Past Surgical History Past Surgical History: Reports: Cholecystectomy, Hysterectomy, Tonsillectomy, Vascular Surgery Social History Information Source: Patient Smoking Status: Current Every Day Smoker Cigarettes Packs Per Day: 1 Number of Years Smokin Frequency of Alcohol Use: None Hx Recreational Drug Use: No Drugs: None Hx Prescription Drug Abuse: No - Advance Directive Resuscitation Status: Full Code Family History Family History: Reviewed & Not Pertinent Parental Family History Reviewed: Yes Children Family History Reviewed: Yes Sibling(s) Family History Reviewed.: Yes Medication/Allergy Home Medications: Atorvastatin Calcium [Lipitor] 80 mg PO DAILY 03/03/18 Gabapentin [Gabapentin] 300 mg PO DAILY 03/03/18 Losartan Potassium [Losartan Potassium] 100 mg PO DAILY 03/03/18 Metformin HCl [Metformin HCl] 500 mg PO BID 03/03/18 Omeprazole [Omeprazole] 20 mg PO DAILY 03/03/18 Allergies/Adverse Reactions: No Known Allergies Allergy (Verified 03/02/18 14:13) Review of Systems Constitutional: PRESENT: anorexia, fatigue, weakness, weight loss Cardiovascular: ABSENT: chest pain, dyspnea on exertion, edema, orthropnea, palpitations Gastrointestinal: PRESENT: abdominal pain, constipation Genitourinary: PRESENT: hematuria Neurological: ABSENT: abnormal gait, abnormal speech, confusion, dizziness, focal weakness, syncope Physical Exam Vital Signs: Temp Pulse Resp BP Pulse Ox 99.2 F 97 18 181/76 H 97 03/03/18 07:13 03/03/18 07:13 03/03/18 07:13 03/03/18 07:13 03/03/18 07:13 Intake & Output 03/02/18 03/03/18 03/04/18 06:59 06:59 06:59 Intake Total 1250 Output Total 600 Balance 650 Weight 58.4 kg General appearance: PRESENT: no acute distress, well-developed, well-nourished Head exam: PRESENT: atraumatic, normocephalic Eye exam: PRESENT: conjunctiva pink, EOMI, PERRLA. ABSENT: scleral icterus Ear exam: PRESENT: normal external ear exam Mouth exam: PRESENT: moist, tongue midline Neck exam: ABSENT: carotid bruit, JVD, lymphadenopathy, thyromegaly Respiratory exam: PRESENT: clear to auscultation nikhil. ABSENT: rales, rhonchi, wheezes Cardiovascular exam: PRESENT: RRR. ABSENT: diastolic murmur, rubs, systolic murmur Pulses: PRESENT: normal dorsalis pedis pul Vascular exam: PRESENT: normal capillary refill GI/Abdominal exam: PRESENT: tenderness Rectal exam: PRESENT: deferred Extremities exam: PRESENT: full ROM. ABSENT: calf tenderness, clubbing, pedal edema Neurological exam: PRESENT: alert, awake, oriented to person, oriented to place , oriented to time, oriented to situation, CN II-XII grossly intact. ABSENT: motor sensory deficit Psychiatric exam: PRESENT: appropriate affect, normal mood. ABSENT: homicidal ideation, suicidal ideation Skin exam: PRESENT: dry, intact, warm. ABSENT: cyanosis, rash Results Laboratory Results: 03/03/18 04:37 03/03/18 04:37 03/03/18 03/03/18 04:37 04:37 WBC 9.0 RBC 4.29 Hgb 13.1 Hct 38.7 MCV 90 MCH 30.6 MCHC 33.9 RDW 14.7 H Plt Count 257 Seg Neutrophils % 87.8 H Lymphocytes % 7.2 L Monocytes % 4.4 Eosinophils % 0.2 Basophils % 0.4 Absolute Neutrophils 7.9 Absolute Lymphocytes 0.6 Absolute Monocytes 0.4 Absolute Eosinophils 0.0 Absolute Basophils 0.0 Sodium 144.3 Potassium 3.1 L Chloride 102 Carbon Dioxide 26 Anion Gap 16 BUN 12 Creatinine 0.95 Est GFR ( Amer) > 60 Est GFR (Non-Af Amer) 57 L Glucose 158 H Calcium 9.8 Impressions: Abdomen/Pelvis CT 03/02/18 15:50 IMPRESSION: 1. There is evidence of marked distortion of the collecting system of the right kidney with adjacent mass extending into the upper pole of the right kidney. The findings could represent transition cell carcinoma invading the kidney or renal cell carcinoma of the upper pole of the right kidney invading the collecting system. There is a prominent extrarenal pelvis on the right with hyperdensity in the collecting system and proximal ureter with possible due mass and/or hemorrhage not excluded. There is a focal area of increased density noted in the posterior right side of the urinary bladder with hemorrhage or mass not excluded. consultation recommended. 2. Findings consistent with atrophic poorly functioning left kidney most consistent with chronic ischemic change. Changes of the renal parenchyma could be secondary to renal infarction. 3. Diffuse significant atherosclerotic change of the entire aorta iliac and femoral vessels with fusiform aneurysm infrarenal abdominal aorta are measuring 3.3 x 3 cm. 4. Evidence of a ventral hernia containing transverse colon without obstruction. Constipation. Status: Image reviewed by me Assessment & Plan - Diagnosis (1) Incarcerated hernia of abdominal cavity Is this a current diagnosis for this admission?: Yes Plan: I believe this is the cause of her abdominal pain and nausea and vomiting, the chronic constipation is probably causing this to happen, we have consulted general surgery, await their opinion. Continue with IV pain medication. (2) Kidney malignant neoplasm Qualifiers: Laterality: right Qualified Code(s): C64.1 - Malignant neoplasm of right kidney, except renal pelvis Is this a current diagnosis for this admission?: Yes Plan: Probably going to be a urothelial kidney neoplasia, possibly starting from the ureter with involvement of the right kidney, possibly even bladder. She needs urologic consultation and cystoscopy. - Time Time Spent: Greater than 70 Minutes - Inpatient Certification Based on my medical assessment, after consideration of the patient's comorbidities, presenting symptoms, or acuity I expect that the services needed warrant INPATIENT care.: Yes I certify that my determination is in accordance with my understanding of Medicare's requirements for reasonable and necessary INPATIENT services [42 CFR 412.3e].: Yes Medical Necessity: Need For IV Fluids, Need for Pain Control, Need for Surgery
[2018-03-03] MEDS: DOCUSATE SODIUM 100 MG CAPSULE PO SCH ×2 (09:18→17:38)
[2018-03-03] MEDS: NICOTINE 7 MG/24 HR PATCH.TD24 TD SCH (10:10)
[2018-03-03] MEDS: AMPICILLIN SODIUM/SULBACTAM NA 3 GM in NORMAL SALINE 100 ML IV SCH ×3 (12:59→23:42)
--- NOTE | 2018-03-03 13:30 | EKG REPORT ---
SEVERITY:- ABNORMAL ECG - SINUS RHYTHM NONSPECIFIC INTRAVENTRICULAR CONDUCTION DELAY LEFT VENTRICULAR HYPERTROPHY : Confirmed by: Todd Lackey MD 03-Mar-2018 13:29:40
[2018-03-03] MEDS: MORPHINE SULFATE 10 MG/ML INJ IV PRN ×2 (16:22→20:13)
--- NOTE | 2018-03-03 18:12 | PDOC PROGRESS REPORT ---
Subjective Subjective:: Dr Pena evaluated Kamila yesterday for a 24 hour history of gross hematuria and an abnormal CT scan that showed a large right upper pole mass and possible filling defect on the right side of her bladder. Her urine has cleared since she was admitted to the hospital. The right upper pole mass appears to have necrotic center and it appears to be encroaching on the collecting system. 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 She has a small atrophic left kidney. She states that she has a remote history of a kidney infection. Otherwise she denies any bothersome urinary complaints or prior history of hematuria. Her main complaint is left lower quadrant abdominal pain with nausea and vomiting. She has a midline ventral hernia that measures approximately 4 cm in length and 3 cm in width. Bowel protrudes in this hernia when she strains but I was easily able to reduce the hernia. I doubt that this is the cause of her abdominal pain. She has tenderness in the left lower quadrant but no referred rebound. She has hypoactive bowel sounds. I did not perform a rectal exam She will need cystoscopy and a right retrograde and possible right ureteroscopy to further clarify the nature of her renal tumor and possible bladder tumor. She has other comorbidities and there is a good chance she will require dialysis if she has a nephrectomy. If she has a positional so carcinoma in her upper tract this would require a nephroureterectomy. I recommend referral to a [facility] center such as [facility] or [facility] for further evaluation and treatment. I do not believe that her abdominal pain and nausea are related to her kidney tumor. There is no sign of obstruction in her right collecting system on the CAT scan and her urine has cleared so it is unlikely she is having clot colic. I discussed my recommendations with the family and they are agreeable with referral to a university center. Their preference is [facility]. This referral can be done electively. In the meantime she will need a general surgical evaluation for her abdominal pain and nausea and vomiting are more immediate concern than her kidney and possible bladder tumor. Reason For Visit: RIGHT RENAL, BLADDER MASS,HTN URGENCY Physical Exam Vital Signs: Temp Pulse Resp BP Pulse Ox 99.2 F 100 20 209/91 H 96 03/03/18 15:48 03/03/18 15:50 03/03/18 15:48 03/03/18 15:50 03/03/18 15:48 Intake & Output 03/02/18 03/03/18 03/04/18 06:59 06:59 06:59 Intake Total 1250 0 Output Total 600 200 Balance 650 -200 Weight 58.4 kg Results Laboratory Results: 03/03/18 04:37 03/03/18 04:37 03/03/18 03/03/18 04:37 04:37 WBC 9.0 RBC 4.29 Hgb 13.1 Hct 38.7 MCV 90 MCH 30.6 MCHC 33.9 RDW 14.7 H Plt Count 257 Seg Neutrophils % 87.8 H Lymphocytes % 7.2 L Monocytes % 4.4 Eosinophils % 0.2 Basophils % 0.4 Absolute Neutrophils 7.9 Absolute Lymphocytes 0.6 Absolute Monocytes 0.4 Absolute Eosinophils 0.0 Absolute Basophils 0.0 Sodium 144.3 Potassium 3.1 L Chloride 102 Carbon Dioxide 26 Anion Gap 16 BUN 12 Creatinine 0.95 Est GFR ( Amer) > 60 Est GFR (Non-Af Amer) 57 L Glucose 158 H Calcium 9.8 Impressions: Abdomen/Pelvis CT 03/02/18 15:50 IMPRESSION: 1. There is evidence of marked distortion of the collecting system of the right kidney with adjacent mass extending into the upper pole of the right kidney. The findings could represent transition cell carcinoma invading the kidney or renal cell carcinoma of the upper pole of the right kidney invading the collecting system. There is a prominent extrarenal pelvis on the right with hyperdensity in the collecting system and proximal ureter with possible due mass and/or hemorrhage not excluded. There is a focal area of increased density noted in the posterior right side of the urinary bladder with hemorrhage or mass not excluded. consultation recommended. 2. Findings consistent with atrophic poorly functioning left kidney most consistent with chronic ischemic change. Changes of the renal parenchyma could be secondary to renal infarction. 3. Diffuse significant atherosclerotic change of the entire aorta iliac and femoral vessels with fusiform aneurysm infrarenal abdominal aorta are measuring 3.3 x 3 cm. 4. Evidence of a ventral hernia containing transverse colon without obstruction. Constipation.
--- NOTE | 2018-03-03 21:10 | CONSULTATION REPORT E ---
Consultation Report NAME: JERILYN MCCARTY : 1940 AGE: 77Y DATE: 03/03/2018 ROOM: 313 A TO: MOISES FIORE M.D. FROM: EMILY LUTHER M.D. Requesting Physician The patient seen at 11 a.m. this morning. REASON FOR CONSULTATION: Patient with a history of CAD and peripheral vascular disease, preoperative cardiac risk assessment for possible abdominal surgery. HISTORY OF PRESENT ILLNESS: The patient is a 77-year-old -[place] female with a known history of hypertension, diabetes mellitus, COPD who continues to smoke who was admitted with left lower quadrant pain, nausea, vomiting, constipation, and hematuria. The patient has a history of left ventral hernia and notes over the last few years it has given her some discomfort, intermittently. She says since the past few days she has been having a history of left abdominal pain, which she says comes like spasms with nausea, vomiting, and constipation. There is no hemoptysis. There are no fever, chills, or rigors. She also initially, since a month, has been having intermittent hematuria but since the last few days it has been gross. A CT scan of the abdomen and pelvis indicated a right kidney mass involving the ureter, there may be a bladder mass as well. The left kidney is atrophic and there is a ventral hernia containing transverse colon, and chronic constipation noted. She still complains of abdominal pain and tenderness in the left lower quadrant. She denies any chest pain or discomfort. There is no palpitation. There is no PND, orthopnea, leg edema. There is no syncope. There is no history of TIA or CVA symptoms. PAST MEDICAL HISTORY: Although it is reported that the patient has a history of myocardial infarction and coronary artery disease the patient denies any history of coronary artery disease or SC or anginal symptoms. There is no history of congestive heart failure. No history of cardiac arrhythmia. The patient denies any chest pain or discomfort. There is no PND, orthopnea, or leg edema. There are no palpitations or syncope or near syncope. She has a history of diabetes mellitus type 2 history of insulin dependent, diabetes mellitus type 2 noninsulin dependent. She also has a history of hypertension, which she claims is well-controlled. She has a history of GERD. She has no history of thyroid disease. She also has a history of hyperlipidemia. She also has severe peripheral vascular disease and although she does not walk much and hence has no definite claudication. She has had multiple vascular surgery interventions in the past of her lower extremity arteries. She has a history of COPD and the patient smokes. There is no recent cough or sputum production. REVIEW OF SYSTEMS: CONSTITUTIONAL: Denies any fever, chills, or rigors. Complains of generalized fatigue and weakness. HEAD: No history of headaches or head injury. EYES: No history of amblyopia or diplopia. No history of amaurosis fugax. EARS: No history of hearing loss. No history of tinnitus. No history of recurrent ear infections. NOSE: No history of hay fever. No history of nosebleeds. No history of nasal polyps. MOUTH: No history of altered taste sensation. The patient came the mouth was dry. There is no bleeding from the gums. There is no ulcers in the mouth. THROAT: There is no odynophagia or dysphagia. There are recurrent sore throats. SKIN: There are no skin rashes. There is no petechiae or ecchymosis. There are no skin lesions. There is no pruritus. There is no eczema. There is no psoriasis. There is no yellowish discoloration of the skin. NECK: No neck stiffness. No painful or painless swelling in the neck. No goiter. LUNGS: A history of COPD. The patient continues to smoke. No recent symptoms of acute exacerbation of COPD such as cough or sputum production or wheezing. She has no history of sleep apnea. No history of pulmonary embolism. No chest pain, pleuritic or otherwise, and no hemoptysis. CARDIAC: Denies history of coronary artery disease or past SC, although she has multiple risk factors for this, which is namely age, smoking, hypertension, diabetes mellitus, hyperlipidemia, and with the patient also having peripheral vascular disease. There is no palpitations, or syncope. No PND, orthopnea, leg edema. RENAL: Denies any history of chronic kidney disease. No history of symptoms of UTI but the patient does have gross hematuria. ENDOCRINE: History of diabetes mellitus type 2 noninsulin dependent. No history of polydipsia or polyuria. No history of heat or cold intolerance. No history of thyroid disease. No history of hirsutism. No history of excessive sweating. MUSCULOSKELETAL: Denies arthritis or collagen vascular disease. METABOLIC: History of hyperlipidemia present. No history of obesity. No history of gout. CENTRAL NERVOUS SYSTEM: No history of TIA or CVA. No seizures. No headaches or migraines. No gait imbalance. PSYCHIATRIC: No history of anxiety or depression. No history of suicidal ideation. GASTROINTESTINAL: No history of melena. History of constipation. Left lower quadrant abdominal pain. History of left ventral hernia, most likely this is incarcerated. The patient also has nausea and vomiting. There is no history of hepatitis, no history of cirrhosis of the liver, no history of fatty food intolerance, no history of GI bleed. VASCULAR: History of peripheral vascular disease is present. She has had multiple vascular interventions to her lower extremity arteries. There are no symptoms of claudication but the patient does not walk very much. There is no history of DVT. HEMATOLOGICAL: No history of bleeding diathesis. No history of clotting disorders. ALLERGIES: No known allergies. SOCIAL HISTORY: The patient smokes. There is no history of EtOH abuse. ADVANCE DIRECTIVES: The patient is a full code. Her is the surrogate healthcare decision maker. MEDICATIONS: 1. Tylenol 650 mg p.o. q.4 hours p.r.n. 2. Glutose 40% gel, 15 grams and 30 grams p.o. respectively p.r.n. hypoglycemia. 3. She is also on dextrose 50% IV, 25 grams and 12.5 grams IV respectively p.r.n. hypoglycemia. 4. Vasotec 1.25 mg IV q.6 hours. 5. She did get Lasix 40 mg IV x1. 6. Glucagon 1 mg IM p.r.n. hypoglycemia. 7. Heparin 5000 units subcutaneously q.8 hours. 8. She did get 1 dose of hydralazine 25 mg IV push x1. 9. Hydralazine 10 mg IV q.6 hours p.r.n. 10. Accu-Chek a.c., q.i.d., and at bedtime with sliding scale regular insulin. 11. Ipratropium/albuterol sulfate, DuoNeb 3 mL nebulizer treatment q.12 hours p.r.n. She is also on the nebulizer treatment q.8 hours. 12. Ampicillin/sulbactam with 3 grams IV q.6 hours. 13. Normal saline at 100 mL per hour. 14. Milk of magnesia 30 mL p.o. x1. 15. Morphine sulfate 2 mg IV q.4 hours p.r.n. 16. Nicoderm 21 mg/24 hours to chest wall daily. 17. She did get one dose of Nitrol 2% ointment to the chest. 18. Nitroglycerin 0.5 mg topically x1. 19. Zofran 4 mg IV q.4 hours p.r.n. PHYSICAL EXAMINATION: GENERAL: The patient is well-built and well-nourished, at present the patient is in mild distress due to left lower quadrant abdominal pain. She is able to lie down flat in bed. She is well-groomed. VITAL SIGNS: She is afebrile with a temperature of 98.7 degrees Fahrenheit, pulse is 101 beats per minute, blood pressure 156/73, respirations are 18 per minute, O2 saturations are 100% on 1.5 liters nasal cannula of oxygen. HEENT: Head is atraumatic, normocephalic. Eyes: Pupils are equal, round and regular, reactive to light and accommodation. Extraocular movements are normal. There is no conjunctival pallor. There is no scleral icterus. Ears: Tympanic membranes are intact, external auditory canals are clear. Nose: There is no deviation of the nasal septum. There is no inflammation of the nasal mucous membranes. Mouth: Mucous membranes of the mouth are moist. Tongue is moist. There are no ulcers. There is no bleeding from the gums. Throat: There is no redness of the oropharynx. There are no exudates. SKIN: There are no skin lesions or skin rashes. There is no petechiae or ecchymosis. NECK: Supple. There is no JVD. There is no lymphadenopathy. There is no goiter. Carotids are equal. There are no carotid bruits. LUNGS: Show diminished air entry, prolonged expiration, otherwise clear to auscultation and percussion. On percussion there is hyperresonance. There is no chest wall tenderness. HEART: S1, S2 is heard. There is no S3 gallop. There is no S4 gallop. There is a systolic murmur in the left sternal border and the apex. There is no rub. ABDOMEN: Soft, there is some tenderness in the left lower quadrant. There is no rebound, guarding, or rigidity. There is no hepatosplenomegaly. Bowel sounds are well heard. There is no clinical evidence of ascites. EXTREMITIES: Femorals are diminished. There are no femoral bruits. Leg pulses are diminished. There is no pedal edema. There is no DVT or cellulitis. CENTRAL NERVOUS SYSTEM: The patient is conscious, awake, alert and oriented x3 with no focal deficits. PSYCHIATRIC: The patient's judgment and insight are intact. Her affect is normal. DIAGNOSTICS: The patient's EKG shows sinus rhythm, nonspecific IVCD, and left ventricular hypertrophy. The patient's abdominal CT as mentioned earlier. Right kidney mass involving the ureter and possibly a bladder mass and left kidney is atrophic. The patient's white count is 9000, hemoglobin is 13.1, hematocrit is 38.7, platelet count is 237,000. The patient's sodium is 134.8, potassium is low at 3.1, chloride is 102, CO2 is 23, BUN is 12, creatinine is 0.95, GFR is greater than 60, glucose is 102. Her calcium is 9.8. Her liver function tests are normal. ProTime is 12.8, INR is 0.91. IMPRESSION: 1. Left lower quadrant abdominal pain. 2. Most likely the above pain is secondary possibly incarcerated left ventral hernia. 3. Right kidney mass involving the ureter and also a bladder mass and atrophic left kidney. 4. Hypertension. 5. Diabetes mellitus. 6. COPD. 7. Peripheral arterial disease. 8. GERD. 9. Hypokalemia. 10. Tobacco abuse disorder. 11. Preoperative cardiac risk assessment. 12.Clinically and by history no CAD of significance. RECOMMENDATIONS: Cont current IV fluids. Continue the patient's Lopressor. We will hold off on other p.o. medications. Continue antibiotics. Replace the patient's potassium. If the patient needs surgery she will be at acceptable risk for the surgery. Later we will check an echo on this patient. Note medications have been reviewed. I discussed the case with the attending physician. Awaiting surgicalist consult. Note medical decision making is of moderate to high complexity. Will sign off , since cardiac status is stable.. DICTATING PHYSICIAN: MOISES FIORE M.D. [id number] PHY#: [id number] ID: [id number] JOB#: [id number] ACCT: [id number] cc:MOISES FIORE M.D. > MERE
--- NOTE | 2018-03-03 21:33 | PDOC CONSULTATION ---
Consultation Consult Date: 03/03/18 Attending physician:: ALEC PRATHER Consult reason:: Left lower quadrant pain History of Present Illness Admission Date/PCP: 03/02/18 19:12 DENIS SALGADO, History of Present Illness: JERILYN MCCARTY is a 77 year old female Is admitted to the hospitalist service after coming to the emergency department via ground rescue complaining of a several day history of abdominal pain primarily in left lower quadrant associated with constipation. Patient was admitted to the hospitalist service, and found by CT scan of the abdomen and pelvis to have a previously undiagnosed right renal mass with distortion of the collecting system, hydroureter, as well as a functional left kidney. Oncology was consulted, and further recommendations were made for biopsy and further evaluation. CT scan of the abdomen and pelvis performed with IV but no oral contrast showed a 3 cm abdominal aortic aneurysm, abdominal wall hernia consistent with laps transverse colon was significant amount of stool; postoperative changes in the right upper quadrant consistent with previous cholecystectomy. Patient had a colonoscopy by Dr. Aguilar approximately 3 years ago with removal of polyps. No records available for confirmation. She does believe she is chronically constipated. Her pain is mostly in the left lower quadrant. Past Medical History Cardiac Medical History: Reports: Myocardial Infarction, Hyperlipidema, Hypertension, Peripheral Vascular Disease Pulmonary Medical History: Reports: Bronchitis Denies: Asthma, Chronic Obstructive Pulmonary Disease (COPD), Pneumonia Neurological Medical History: Reports: Other - Neuropathy Endocrine Medical History: Reports: Diabetes Mellitus Type 2 Renal/ Medical History: Denies: End Stage Renal Disease Malignancy Medical History: Reports: None GI Medical History: Reports: Gastroesophageal Reflux Disease Past Surgical History Past Surgical History: Reports: Cholecystectomy, Hysterectomy, Tonsillectomy, Vascular Surgery Social History Smoking Status: Current Every Day Smoker Cigarettes Packs Per Day: 1 Number of Years Smokin Frequency of Alcohol Use: None Hx Recreational Drug Use: No Drugs: None Hx Prescription Drug Abuse: No - Advance Directive Resuscitation Status: Full Code Family History Family History: Reviewed & Not Pertinent Parental Family History Reviewed: Yes Children Family History Reviewed: Yes Sibling(s) Family History Reviewed.: Yes Medication/Allergy Home Medications: Atorvastatin Calcium [Lipitor 80 mg Tablet] 80 mg PO QHS 03/03/18 Ergocalciferol (Vitamin D2) [Drisdol 50,000 unit (1.25MG) Capsule] 50,000 unit PO [id number] 03/03/18 Ferrous Sulfate [Feosol 325 mg Tablet] 325 mg PO DAILY 03/03/18 Gabapentin [Neurontin 300 mg Capsule] 300 mg PO Q12 03/03/18 Losartan Potassium [Cozaar 100 mg Tablet] 100 mg PO DAILY 03/03/18 Metformin HCl [Glucophage 500 mg Tablet] 500 mg PO BID 03/03/18 Omeprazole 20 mg PO DAILY 03/03/18 Allergies/Adverse Reactions: No Known Allergies Allergy (Verified 03/02/18 14:13) Review of Systems ROS unobtainable: Due to mental status - Patient received some pain medication and is not completely lucid for providing review of systems Physical Exam Vital Signs: Temp Pulse Resp BP Pulse Ox 99.3 F 111 H 18 189/79 H 95 03/03/18 19:11 03/03/18 19:11 03/03/18 19:11 03/03/18 19:11 03/03/18 19:11 Intake & Output 03/02/18 03/03/18 03/04/18 06:59 06:59 06:59 Intake Total 1250 900 Output Total 600 200 Balance 650 700 Weight 58.4 kg General appearance: PRESENT: no acute distress Teeth exam: PRESENT: poor dentation Neck exam: PRESENT: full ROM Respiratory exam: PRESENT: rhonchi Cardiovascular exam: PRESENT: RRR GI/Abdominal exam: PRESENT: other - Multiple operative scars. There is a palpable fascial defect midline; I could palpate stool within the prolapsed transverse colon. There is some left lower quadrant and midabdominal tenderness. There are no peritoneal signs no rigidity. Neurological exam: PRESENT: oriented to person, oriented to place, oriented to time, oriented to situation, other - Sleepy Results Laboratory Results: 03/03/18 04:37 03/03/18 04:37 03/03/18 03/03/18 04:37 04:37 WBC 9.0 RBC 4.29 Hgb 13.1 Hct 38.7 MCV 90 MCH 30.6 MCHC 33.9 RDW 14.7 H Plt Count 257 Seg Neutrophils % 87.8 H Lymphocytes % 7.2 L Monocytes % 4.4 Eosinophils % 0.2 Basophils % 0.4 Absolute Neutrophils 7.9 Absolute Lymphocytes 0.6 Absolute Monocytes 0.4 Absolute Eosinophils 0.0 Absolute Basophils 0.0 Sodium 144.3 Potassium 3.1 L Chloride 102 Carbon Dioxide 26 Anion Gap 16 BUN 12 Creatinine 0.95 Est GFR ( Amer) > 60 Est GFR (Non-Af Amer) 57 L Glucose 158 H Calcium 9.8 Impressions: Abdomen/Pelvis CT 03/02/18 15:50 IMPRESSION: 1. There is evidence of marked distortion of the collecting system of the right kidney with adjacent mass extending into the upper pole of the right kidney. The findings could represent transition cell carcinoma invading the kidney or renal cell carcinoma of the upper pole of the right kidney invading the collecting system. There is a prominent extrarenal pelvis on the right with hyperdensity in the collecting system and proximal ureter with possible due mass and/or hemorrhage not excluded. There is a focal area of increased density noted in the posterior right side of the urinary bladder with hemorrhage or mass not excluded. consultation recommended. 2. Findings consistent with atrophic poorly functioning left kidney most consistent with chronic ischemic change. Changes of the renal parenchyma could be secondary to renal infarction. 3. Diffuse significant atherosclerotic change of the entire aorta iliac and femoral vessels with fusiform aneurysm infrarenal abdominal aorta are measuring 3.3 x 3 cm. 4. Evidence of a ventral hernia containing transverse colon without obstruction. Constipation. Assessment & Plan - Diagnosis (1) Constipation Qualifiers: Constipation type: chronic idiopathic constipation Qualified Code(s): K59.04 - Chronic idiopathic constipation Is this a current diagnosis for this admission?: Yes Plan: My impression is that the patient has low-grade chronic abdominal pain secondary to constipation; likely exacerbated by loop of transverse colon prolapsing into ventral wall hernia. There is no evidence of obstruction. She has no peritoneal signs. This CT scan was performed without oral contrast so rotation may be limited. Reports of previously unremarkable colonoscopy except for small polyps. Recommendations: 1. No clinical indication for surgical intervention at this time. In light of the patient's recent diagnosis of large malignancy involving the right kidney and possibly collecting system, I believe this pathologic process is the priority and not the abdominal wall hernia. I explained this to the patient's daughter who I believe understands. The patient herself had received pain medication and was moderately lethargic. 2. Would recommend rectal exam, and cathartics as necessary to clear stool from : 3. Reconsult surgery if clinically indicated. (2) Abdominal wall hernia Is this a current diagnosis for this admission?: Yes (3) Smoker Is this a current diagnosis for this admission?: Yes (4) History of colon polyps Is this a current diagnosis for this admission?: Yes (5) Renal carcinoma Qualifiers: Laterality: right Qualified Code(s): C64.1 - Malignant neoplasm of right kidney, except renal pelvis Is this a current diagnosis for this admission?: Yes - Time Time Spent: 50 to 70 Minutes Smoking Cessation Education: over 10 minutes Medications reviewed and adjusted accordingly: Yes Anticipated discharge: Home
[2018-03-04] MEDS: IPRATROPIUM/ALBUTEROL 0.5-2.5 MG/3 ML AMPUL NEB SCH ×3 (00:13→15:48)
[2018-03-04 05:14] LABS: ABSOLUTE LYMPHOCYTES (AUTO) 0.8 10^3/uL (0.5-4.7); ABSOLUTE MONOCYTES (AUTO) 1.2 10^3/uL (0.1-1.4); ABSOLUTE NEUT (AUTO) 10.1 10^3/uL (1.7-8.2); BASOPHILS % (AUTO) 0.2 % (0-2); HEMOGLOBIN 12.5 g/dL (12.0-15.5); LYMPHOCYTES % (AUTO) 6.3 % (13-45); MEAN CORPUSCULAR HEMOGLOBIN 30.3 pg (27.0-33.4); MEAN CORPUSCULAR HGB CONC 33.8 g/dL (32.0-36.0); MEAN CORPUSCULAR VOLUME 90 fl (80-97); PLATELET COUNT 296 10^3/uL (150-450); RED BLOOD COUNT 4.14 10^6/uL (3.72-5.28); RED CELL DISTRIBUTION WIDTH 14.5 % (11.5-14.0); SEGMENTED NEUTROPHILS % (AUTO) 83.5 % (42-78); TOTAL CELLS COUNTED % (AUTO) 100 %; WHITE BLOOD COUNT 12.1 10^3/uL (4.0-10.5)
[2018-03-04 05:35] LABS: ANION GAP 13 (5-19); BLOOD UREA NITROGEN 17 mg/dL (7-20); CALCIUM 10.3 mg/dL (8.4-10.2); CARBON DIOXIDE 26 mmol/L (22-30); CHLORIDE 107 mmol/L (98-107); GLUCOSE 168 mg/dL (75-110); POTASSIUM 3.3 mmol/L (3.6-5.0)
[2018-03-04] MEDS: HEPARIN SOD (PORCINE) 5,000 UNIT/ML 1 ML SYRINGE SUBCUT SCH ×3 (05:39→21:34)
[2018-03-04] MEDS: AMPICILLIN SODIUM/SULBACTAM NA 3 GM in NORMAL SALINE 100 ML IV SCH ×3 (05:41→17:33)
[2018-03-04] MEDS: MORPHINE SULFATE 10 MG/ML INJ IV PRN (05:43)
[2018-03-04] MEDS: ENALAPRILAT DIHYDRATE INJ/PF 1.25 MG/1 ML SDV IV PRN ×2 (08:17→17:33)
[2018-03-04] MEDS: INSULIN LISPRO 100 UNIT/ML 3 ML VIAL SUBCUT PRN ×3 (08:17→17:33)
--- NOTE | 2018-03-04 08:52 | PDOC PROGRESS REPORT ---
Subjective Progress Note for:: 03/04/18 Subjective:: Pt has been seen by surgery and urology, don't feel pt needs emergent surgery for hernia, feel abd pain is related to constipation. Urology feels pt needs cystoureteroscopy and should be done in [facility]. Discussed this w/ pt and daughter extensively today. Reason For Visit: RIGHT RENAL, BLADDER MASS,HTN URGENCY Physical Exam Vital Signs: Temp Pulse Resp BP Pulse Ox 100.4 F 113 H 18 207/91 H 94 03/04/18 03:11 03/04/18 07:00 03/04/18 03:11 03/04/18 03:11 03/04/18 03:11 Intake & Output 03/03/18 03/04/18 03/05/18 06:59 06:59 06:59 Intake Total 1250 1977 Output Total 600 200 Balance 650 1777 Weight 58.4 kg 56.4 kg General appearance: PRESENT: no acute distress, well-developed, well-nourished Head exam: PRESENT: atraumatic, normocephalic Eye exam: PRESENT: conjunctiva pink, EOMI, PERRLA. ABSENT: scleral icterus Ear exam: PRESENT: normal external ear exam Mouth exam: PRESENT: moist, tongue midline Neck exam: ABSENT: carotid bruit, JVD, lymphadenopathy, thyromegaly Respiratory exam: PRESENT: clear to auscultation nikhil. ABSENT: rales, rhonchi, wheezes Cardiovascular exam: PRESENT: RRR. ABSENT: diastolic murmur, rubs, systolic murmur Pulses: PRESENT: normal dorsalis pedis pul Vascular exam: PRESENT: normal capillary refill GI/Abdominal exam: PRESENT: normal bowel sounds, soft. ABSENT: distended, guarding, mass, organolmegaly, rebound, tenderness Rectal exam: PRESENT: deferred Extremities exam: PRESENT: full ROM. ABSENT: calf tenderness, clubbing, pedal edema Neurological exam: PRESENT: alert, awake, oriented to person, oriented to place , oriented to time, oriented to situation, CN II-XII grossly intact. ABSENT: motor sensory deficit Psychiatric exam: PRESENT: appropriate affect, normal mood. ABSENT: homicidal ideation, suicidal ideation Skin exam: PRESENT: dry, intact, warm. ABSENT: cyanosis, rash Results Laboratory Results: 03/04/18 04:41 03/04/18 04:41 03/04/18 03/04/18 04:41 04:41 WBC 12.1 H RBC 4.14 Hgb 12.5 Hct 37.0 MCV 90 MCH 30.3 MCHC 33.8 RDW 14.5 H Plt Count 296 Seg Neutrophils % 83.5 H Lymphocytes % 6.3 L Monocytes % 10.0 Eosinophils % 0.0 Basophils % 0.2 Absolute Neutrophils 10.1 H Absolute Lymphocytes 0.8 Absolute Monocytes 1.2 Absolute Eosinophils 0.0 Absolute Basophils 0.0 Sodium 146.0 H Potassium 3.3 L Chloride 107 Carbon Dioxide 26 Anion Gap 13 BUN 17 Creatinine 0.99 Est GFR ( Amer) > 60 Est GFR (Non-Af Amer) 54 L Glucose 168 H Calcium 10.3 H Impressions: Abdomen/Pelvis CT 03/02/18 15:50 IMPRESSION: 1. There is evidence of marked distortion of the collecting system of the right kidney with adjacent mass extending into the upper pole of the right kidney. The findings could represent transition cell carcinoma invading the kidney or renal cell carcinoma of the upper pole of the right kidney invading the collecting system. There is a prominent extrarenal pelvis on the right with hyperdensity in the collecting system and proximal ureter with possible due mass and/or hemorrhage not excluded. There is a focal area of increased density noted in the posterior right side of the urinary bladder with hemorrhage or mass not excluded. consultation recommended. 2. Findings consistent with atrophic poorly functioning left kidney most consistent with chronic ischemic change. Changes of the renal parenchyma could be secondary to renal infarction. 3. Diffuse significant atherosclerotic change of the entire aorta iliac and femoral vessels with fusiform aneurysm infrarenal abdominal aorta are measuring 3.3 x 3 cm. 4. Evidence of a ventral hernia containing transverse colon without obstruction. Constipation. Assessment & Plan - Diagnosis (1) Kidney malignant neoplasm Qualifiers: Laterality: right Qualified Code(s): C64.1 - Malignant neoplasm of right kidney, except renal pelvis Is this a current diagnosis for this admission?: Yes Plan: Discussed w/ pt, will relieve constipation and acute medical management, I will see pt as outpt and get her to [facility] for eval. Today spent >35 min in discussion w / family. - Time Time Spent with patient: 35 or more minutes
[2018-03-04] MEDS: DOCUSATE SODIUM 100 MG CAPSULE PO SCH ×2 (10:58→17:32)
[2018-03-04] MEDS: NICOTINE 7 MG/24 HR PATCH.TD24 TD SCH (10:58)
[2018-03-04] MEDS ORDERED: NA PHOS,M-B/NA PHOS,DI-BA (ADULT) 133 ML ENEMA PR ONE (11:00)
[2018-03-04] MEDS ORDERED: MAGNESIUM CITRATE 296 ML BOTTLE PO ONE (11:49)
--- NOTE | 2018-03-04 12:01 | PDOC PROGRESS REPORT ---
Subjective Progress Note for:: 03/04/18 Subjective:: The patient states to feel much better since we have change from fentanyl IV to her feet and IV. She was seen by the surgery and they did not believe that she needed an emergency hernia repair. She was seen by the urology and they did not think that she needed an emergency abdominal surgery or renal surgery. They have recommended that we arrange for patient to go as an outpatient to see a urologist at the the [facility] Reason For Visit: RIGHT RENAL, BLADDER MASS,HTN URGENCY Physical Exam Vital Signs: Temp Pulse Resp BP Pulse Ox 100.4 F 104 H 16 207/91 H 96 03/04/18 03:11 03/04/18 09:00 03/04/18 09:00 03/04/18 03:11 03/04/18 09:00 Intake & Output 03/03/18 03/04/18 03/05/18 06:59 06:59 06:59 Intake Total 1250 1977 Output Total 600 200 Balance 650 1777 Weight 58.4 kg 56.4 kg General appearance: PRESENT: mild distress Head exam: PRESENT: atraumatic Neck exam: PRESENT: carotid bruit. ABSENT: JVD Respiratory exam: PRESENT: rhonchi. ABSENT: wheezes Cardiovascular exam: PRESENT: RRR, +S1, +S2 GI/Abdominal exam: PRESENT: soft, tenderness. ABSENT: rebound, rigid Extremities exam: PRESENT: full ROM Musculoskeletal exam: PRESENT: ambulatory, full ROM Neurological exam: PRESENT: alert, awake, oriented to person, oriented to place , oriented to time Results Laboratory Results: 03/04/18 04:41 03/04/18 04:41 03/04/18 03/04/18 04:41 04:41 WBC 12.1 H RBC 4.14 Hgb 12.5 Hct 37.0 MCV 90 MCH 30.3 MCHC 33.8 RDW 14.5 H Plt Count 296 Seg Neutrophils % 83.5 H Lymphocytes % 6.3 L Monocytes % 10.0 Eosinophils % 0.0 Basophils % 0.2 Absolute Neutrophils 10.1 H Absolute Lymphocytes 0.8 Absolute Monocytes 1.2 Absolute Eosinophils 0.0 Absolute Basophils 0.0 Sodium 146.0 H Potassium 3.3 L Chloride 107 Carbon Dioxide 26 Anion Gap 13 BUN 17 Creatinine 0.99 Est GFR ( Amer) > 60 Est GFR (Non-Af Amer) 54 L Glucose 168 H Calcium 10.3 H Impressions: Abdomen/Pelvis CT 03/02/18 15:50 IMPRESSION: 1. There is evidence of marked distortion of the collecting system of the right kidney with adjacent mass extending into the upper pole of the right kidney. The findings could represent transition cell carcinoma invading the kidney or renal cell carcinoma of the upper pole of the right kidney invading the collecting system. There is a prominent extrarenal pelvis on the right with hyperdensity in the collecting system and proximal ureter with possible due mass and/or hemorrhage not excluded. There is a focal area of increased density noted in the posterior right side of the urinary bladder with hemorrhage or mass not excluded. consultation recommended. 2. Findings consistent with atrophic poorly functioning left kidney most consistent with chronic ischemic change. Changes of the renal parenchyma could be secondary to renal infarction. 3. Diffuse significant atherosclerotic change of the entire aorta iliac and femoral vessels with fusiform aneurysm infrarenal abdominal aorta are measuring 3.3 x 3 cm. 4. Evidence of a ventral hernia containing transverse colon without obstruction. Constipation. Assessment & Plan - Diagnosis (1) Abdominal wall hernia Is this a current diagnosis for this admission?: Yes Plan: Easily reducible and surgery does not believe that she needs any intervention at present time except for bowel movement (2) COPD exacerbation Is this a current diagnosis for this admission?: Yes Plan: Continue current medications (3) Constipation Qualifiers: Constipation type: chronic idiopathic constipation Qualified Code(s): K59.04 - Chronic idiopathic constipation Is this a current diagnosis for this admission?: Yes Plan: Might be part of the abdominal pain problem. Will attempt with enemas and laxatives (4) Diabetes Qualifiers: Diabetes mellitus type: type 2 Is this a current diagnosis for this admission?: Yes Plan: Continue current treatment (5) Hypertensive urgency Is this a current diagnosis for this admission?: Yes Plan: We will readjust medications to p.o. Stop the IV fluids patient is tolerating clear liquids (6) Kidney malignant neoplasm Qualifiers: Laterality: right Qualified Code(s): C64.1 - Malignant neoplasm of right kidney, except renal pelvis Is this a current diagnosis for this admission?: Yes Plan: Urology believes that the patient needs to be seen at the [facility] [place] as an outpatient once she is stable from her abdominal discomfort and blood pressure control
[2018-03-04] MEDS: HYDRALAZINE HCL INJ/PF 20 MG/1 ML SDV IV PRN (12:04)
[2018-03-04] MEDS: ONDANSETRON HCL INJ/PF 4 MG/2 ML SDV IV PRN ×2 (17:45→21:38)
[2018-03-04] MEDS ORDERED: METFORMIN HCL 500 MG TABLET PO SCH (18:00)
[2018-03-04] MEDS: ATORVASTATIN CALCIUM 80 MG TABLET PO SCH (21:34)
[2018-03-04] MEDS: LABETALOL HCL 200 MG TABLET PO SCH (21:35)
[2018-03-04] MEDS: GABAPENTIN 300 MG CAPSULE PO SCH (21:35)
[2018-03-04] MEDS: HYDRALAZINE HCL 50 MG TABLET PO SCH (21:35)
[2018-03-05] MEDS: IPRATROPIUM/ALBUTEROL 0.5-2.5 MG/3 ML AMPUL NEB SCH ×4 (00:34→23:56)
[2018-03-05] MEDS: AMPICILLIN SODIUM/SULBACTAM NA 3 GM in NORMAL SALINE 100 ML IV SCH ×5 (01:03→23:21)
[2018-03-05] MEDS: HEPARIN SOD (PORCINE) 5,000 UNIT/ML 1 ML SYRINGE SUBCUT SCH ×3 (05:08→21:05)
[2018-03-05 05:12] LABS: ABSOLUTE LYMPHOCYTES (AUTO) 0.7 10^3/uL (0.5-4.7); ABSOLUTE MONOCYTES (AUTO) 0.7 10^3/uL (0.1-1.4); ABSOLUTE NEUT (AUTO) 6.2 10^3/uL (1.7-8.2); BASOPHILS % (AUTO) 0.2 % (0-2); HEMATOCRIT 30.7 % (36.0-47.0); HEMOGLOBIN 10.5 g/dL (12.0-15.5); LYMPHOCYTES % (AUTO) 8.7 % (13-45); MEAN CORPUSCULAR HEMOGLOBIN 30.7 pg (27.0-33.4); MEAN CORPUSCULAR HGB CONC 34.3 g/dL (32.0-36.0); MEAN CORPUSCULAR VOLUME 89 fl (80-97); MONOCYTES % (AUTO) 9.5 % (3-13); PLATELET COUNT 194 10^3/uL (150-450); RED BLOOD COUNT 3.44 10^6/uL (3.72-5.28); RED CELL DISTRIBUTION WIDTH 14.6 % (11.5-14.0); SEGMENTED NEUTROPHILS % (AUTO) 81.6 % (42-78); TOTAL CELLS COUNTED % (AUTO) 100 %; WHITE BLOOD COUNT 7.6 10^3/uL (4.0-10.5)
[2018-03-05 05:49] LABS: ALANINE AMINOTRANSFERASE 16 U/L (9-52); ALBUMIN 3.2 g/dL (3.5-5.0); ALKALINE PHOSPHATASE 65 U/L (38-126); ANION GAP 8 (5-19); ASPARTATE AMINO TRANSFERASE 17 U/L (14-36); BILIRUBIN,DIRECT 0.3 mg/dL (0.0-0.4); BILIRUBIN,TOTAL 0.7 mg/dL (0.2-1.3); BLOOD UREA NITROGEN 23 mg/dL (7-20); CALCIUM 9.2 mg/dL (8.4-10.2); CARBON DIOXIDE 32 mmol/L (22-30); CHLORIDE 104 mmol/L (98-107); GLUCOSE 113 mg/dL (75-110); SODIUM 144.4 mmol/L (137-145); TOTAL PROTEIN 5.7 g/dL (6.3-8.2)
[2018-03-05 05:51] LABS: POTASSIUM 3.1 mmol/L (3.6-5.0)
[2018-03-05] MEDS: MORPHINE SULFATE 10 MG/ML INJ IV PRN ×2 (07:26→21:08)
--- NOTE | 2018-03-05 07:51 | PDOC PROGRESS REPORT ---
Subjective Progress Note for:: 03/05/18 Subjective:: Pt needed doses of antihypertensives yesterday, had episode dizziness post rx Reason For Visit: RIGHT RENAL, BLADDER MASS,HTN URGENCY Physical Exam Vital Signs: Temp Pulse Resp BP Pulse Ox 98.0 F 66 17 120/50 L 94 03/05/18 03:13 03/05/18 03:13 03/05/18 03:13 03/05/18 03:13 03/05/18 03:13 Intake & Output 03/04/18 03/05/18 03/06/18 06:59 06:59 06:59 Intake Total 1977 2757 Output Total 200 Balance 1777 2757 Weight 56.4 kg 58.7 kg General appearance: PRESENT: no acute distress, well-developed, well-nourished Head exam: PRESENT: atraumatic, normocephalic Eye exam: PRESENT: conjunctiva pink, EOMI, PERRLA. ABSENT: scleral icterus Ear exam: PRESENT: normal external ear exam Mouth exam: PRESENT: moist, tongue midline Neck exam: ABSENT: carotid bruit, JVD, lymphadenopathy, thyromegaly Respiratory exam: PRESENT: clear to auscultation nikhil. ABSENT: rales, rhonchi, wheezes Cardiovascular exam: PRESENT: RRR. ABSENT: diastolic murmur, rubs, systolic murmur Pulses: PRESENT: normal dorsalis pedis pul Vascular exam: PRESENT: normal capillary refill GI/Abdominal exam: PRESENT: normal bowel sounds, soft. ABSENT: distended, guarding, mass, organolmegaly, rebound, tenderness Rectal exam: PRESENT: deferred Extremities exam: PRESENT: full ROM. ABSENT: calf tenderness, clubbing, pedal edema Neurological exam: PRESENT: alert, awake, oriented to person, oriented to place , oriented to time, oriented to situation, CN II-XII grossly intact. ABSENT: motor sensory deficit Psychiatric exam: PRESENT: appropriate affect, normal mood. ABSENT: homicidal ideation, suicidal ideation Skin exam: PRESENT: dry, intact, warm. ABSENT: cyanosis, rash Results Laboratory Results: 03/05/18 04:42 03/05/18 04:42 03/05/18 03/05/18 04:42 04:42 WBC 7.6 RBC 3.44 L Hgb 10.5 L Hct 30.7 L MCV 89 MCH 30.7 MCHC 34.3 RDW 14.6 H Plt Count 194 Seg Neutrophils % 81.6 H Lymphocytes % 8.7 L Monocytes % 9.5 Eosinophils % 0.0 Basophils % 0.2 Absolute Neutrophils 6.2 Absolute Lymphocytes 0.7 Absolute Monocytes 0.7 Absolute Eosinophils 0.0 Absolute Basophils 0.0 Sodium 144.4 Potassium 3.1 L Chloride 104 Carbon Dioxide 32 H Anion Gap 8 BUN 23 H Creatinine 1.36 H Est GFR ( Amer) 46 L Est GFR (Non-Af Amer) 38 L Glucose 113 H Calcium 9.2 Total Bilirubin 0.7 AST 17 ALT 16 Alkaline Phosphatase 65 Total Protein 5.7 L Albumin 3.2 L Impressions: Abdomen/Pelvis CT 03/02/18 15:50 IMPRESSION: 1. There is evidence of marked distortion of the collecting system of the right kidney with adjacent mass extending into the upper pole of the right kidney. The findings could represent transition cell carcinoma invading the kidney or renal cell carcinoma of the upper pole of the right kidney invading the collecting system. There is a prominent extrarenal pelvis on the right with hyperdensity in the collecting system and proximal ureter with possible due mass and/or hemorrhage not excluded. There is a focal area of increased density noted in the posterior right side of the urinary bladder with hemorrhage or mass not excluded. consultation recommended. 2. Findings consistent with atrophic poorly functioning left kidney most consistent with chronic ischemic change. Changes of the renal parenchyma could be secondary to renal infarction. 3. Diffuse significant atherosclerotic change of the entire aorta iliac and femoral vessels with fusiform aneurysm infrarenal abdominal aorta are measuring 3.3 x 3 cm. 4. Evidence of a ventral hernia containing transverse colon without obstruction. Constipation. Assessment & Plan - Diagnosis (1) Kidney malignant neoplasm Qualifiers: Laterality: right Qualified Code(s): C64.1 - Malignant neoplasm of right kidney, except renal pelvis Is this a current diagnosis for this admission?: Yes Plan: As noted prev, will plan for oupt f/u and referral to [facility]. will make pt appt for 1 wk from d/c to further pursue this. Will follow peripherally, thanks for the opportunity to assist in this pt care. - Time Time Spent with patient: 15-24 minutes
[2018-03-05] MEDS ORDERED: DEXTROSE 50%-WATER 25 GM/50 ML DISP.SYRIN IV PRN ×2 (08:19)
[2018-03-05] MEDS ORDERED: DEXTROSE 40% GEL 15 GM TUBE PO PRN ×2 (08:19)
[2018-03-05] MEDS ORDERED: GLUCAGON,HUMAN RECOMB 1 MG INJ IM PRN (08:19)
--- NOTE | 2018-03-05 08:26 | PDOC PROGRESS REPORT ---
Subjective Progress Note for:: 03/05/18 Subjective:: The patient states to feel better but she is still having abdominal pain. She did have 3 bowel movements yesterday. She is asking about the real food and does not like to clear liquids any longer. Discussed the need to continue with clear liquids and possibly reconsider CT of the abdomen with p.o. contrast. I will discuss it with surgery. Reason For Visit: RIGHT RENAL, BLADDER MASS,HTN URGENCY Physical Exam Vital Signs: Temp Pulse Resp BP Pulse Ox 98.0 F 66 17 120/50 L 94 03/05/18 03:13 03/05/18 03:13 03/05/18 03:13 03/05/18 03:13 03/05/18 03:13 Intake & Output 03/04/18 03/05/18 03/06/18 06:59 06:59 06:59 Intake Total 1977 2757 Output Total 200 Balance 1777 2757 Weight 56.4 kg 58.7 kg General appearance: PRESENT: mild distress Head exam: PRESENT: atraumatic Eye exam: PRESENT: conjunctiva pink Neck exam: PRESENT: carotid bruit. ABSENT: JVD Respiratory exam: PRESENT: rhonchi Cardiovascular exam: PRESENT: +S1, +S2 Pulses: PRESENT: +1 pedal pulses bilateral GI/Abdominal exam: PRESENT: soft, tenderness. ABSENT: guarding, rebound Extremities exam: PRESENT: full ROM Musculoskeletal exam: PRESENT: ambulatory Neurological exam: PRESENT: alert, awake Results Laboratory Results: 03/05/18 04:42 03/05/18 04:42 03/05/18 03/05/18 04:42 04:42 WBC 7.6 RBC 3.44 L Hgb 10.5 L Hct 30.7 L MCV 89 MCH 30.7 MCHC 34.3 RDW 14.6 H Plt Count 194 Seg Neutrophils % 81.6 H Lymphocytes % 8.7 L Monocytes % 9.5 Eosinophils % 0.0 Basophils % 0.2 Absolute Neutrophils 6.2 Absolute Lymphocytes 0.7 Absolute Monocytes 0.7 Absolute Eosinophils 0.0 Absolute Basophils 0.0 Sodium 144.4 Potassium 3.1 L Chloride 104 Carbon Dioxide 32 H Anion Gap 8 BUN 23 H Creatinine 1.36 H Est GFR ( Amer) 46 L Est GFR (Non-Af Amer) 38 L Glucose 113 H Calcium 9.2 Total Bilirubin 0.7 AST 17 ALT 16 Alkaline Phosphatase 65 Total Protein 5.7 L Albumin 3.2 L Impressions: Abdomen/Pelvis CT 03/02/18 15:50 IMPRESSION: 1. There is evidence of marked distortion of the collecting system of the right kidney with adjacent mass extending into the upper pole of the right kidney. The findings could represent transition cell carcinoma invading the kidney or renal cell carcinoma of the upper pole of the right kidney invading the collecting system. There is a prominent extrarenal pelvis on the right with hyperdensity in the collecting system and proximal ureter with possible due mass and/or hemorrhage not excluded. There is a focal area of increased density noted in the posterior right side of the urinary bladder with hemorrhage or mass not excluded. consultation recommended. 2. Findings consistent with atrophic poorly functioning left kidney most consistent with chronic ischemic change. Changes of the renal parenchyma could be secondary to renal infarction. 3. Diffuse significant atherosclerotic change of the entire aorta iliac and femoral vessels with fusiform aneurysm infrarenal abdominal aorta are measuring 3.3 x 3 cm. 4. Evidence of a ventral hernia containing transverse colon without obstruction. Constipation. Assessment & Plan - Diagnosis (1) Abdominal wall hernia Is this a current diagnosis for this admission?: Yes Plan: No hernia or intestines are palpable. The abdomen is bindery machine tender. Will continue with clear liquids and reconsult surgery (2) COPD exacerbation Is this a current diagnosis for this admission?: Yes Plan: Continue current medications (3) Constipation Qualifiers: Constipation type: chronic idiopathic constipation Qualified Code(s): K59.04 - Chronic idiopathic constipation Is this a current diagnosis for this admission?: Yes Plan: The patient did have 3 bowel movements. We will continue with laxatives and clear liquids (4) Diabetes Qualifiers: Diabetes mellitus type: type 2 Is this a current diagnosis for this admission?: Yes (5) Hypertensive urgency Is this a current diagnosis for this admission?: Yes Plan: Improved with increase in blood pressure medications (6) Kidney malignant neoplasm Qualifiers: Laterality: right Qualified Code(s): C64.1 - Malignant neoplasm of right kidney, except renal pelvis Is this a current diagnosis for this admission?: Yes Plan: We will continue current treatment and arrange for oncology follow-up as an outpatient and a follow-up at [facility] with oncologic urologist
[2018-03-05] MEDS: LANSOPRAZOLE 15 MG TAB.RAP.DR PO SCH (09:16)
[2018-03-05] MEDS: POLYETHYLENE GLYCOL 3350 POWDER 17 GM/1 PACKET PO SCH (09:16)
[2018-03-05] MEDS: POTASSIUM CHLORIDE 10 MEQ TABLET.SA PO SCH ×2 (09:16→21:06)
[2018-03-05] MEDS: NICOTINE 7 MG/24 HR PATCH.TD24 TD SCH (09:16)
[2018-03-05] MEDS: LOSARTAN POTASSIUM 50 MG TABLET PO SCH (09:17)
[2018-03-05] MEDS: HYDRALAZINE HCL 50 MG TABLET PO SCH ×2 (09:17→21:10)
[2018-03-05] MEDS: LABETALOL HCL 200 MG TABLET PO SCH ×2 (09:17→21:09)
[2018-03-05] MEDS: GABAPENTIN 300 MG CAPSULE PO SCH ×2 (09:17→21:06)
--- NOTE | 2018-03-05 10:51 | RADIOLOGY REPORT (SQ) ---
EXAM DESCRIPTION: KUB/ABDOMEN (SINGLE VIEW) COMPLETED DATE/TIME: 03/05/2018 9:27 am REASON FOR STUDY: abdominal pain COMPARISON: Abdominal CT scan dated 03/02/2018 NUMBER OF VIEWS: One view. TECHNIQUE: Supine radiographic image of the abdomen acquired. LIMITATIONS: None. FINDINGS: BOWEL GAS PATTERN: There is some mi gaseous distension of the colon. CALCIFICATIONS: No suspicious calcifications. SOFT TISSUES: No gross mass or suggestion of organomegaly. HARDWARE: Surgical clips are identified in the right upper quadrant. BONES: Degenerative changes are identified in the lumbar spine. Vascular calcifications are identifi ed. OTHER: A gas collection is identified in the pelvis which could conceivably represent air within the bladder. Clinical correlation is recommended. IMPRESSION: Mild gaseous distension of the colon. Gas collection is identified in the pelvis which could conceivably represent air within the bladder. Clinical correlation is recommended. Other find ings as noted above TECHNICAL DOCUMENTATION: JOB ID: [id number] [employer]- All Rights Reserved Reading location - IP/workstation name: [email or web address]
[2018-03-05] MEDS ORDERED: DOCUSATE SODIUM 100 MG CAPSULE PO ONE (11:00)
[2018-03-05] MEDS ORDERED: PSYLLIUM SEED-SF 5.85 GM PACKET PO ONE (11:00)
[2018-03-05] MEDS: PSYLLIUM SEED-SF 5.85 GM PACKET PO SCH (17:19)
[2018-03-05] MEDS: DOCUSATE SODIUM 100 MG CAPSULE PO SCH (17:19)
[2018-03-05] MEDS: ATORVASTATIN CALCIUM 80 MG TABLET PO SCH (21:06)
[2018-03-05] MEDS: INSULIN GLARGINE,HUM.REC.ANLOG 300 UNIT/3 ML INSULN.PEN SUBCUT SCH (21:18)
--- NOTE | 2018-03-05 22:15 | PDOC PROGRESS REPORT ---
Subjective Progress Note for:: 03/05/18 Subjective:: This is a 77-year-old female with a ventral midline hernia, containing a loop of colon. She reports intermittent abdominal pain in the area of the hernia. She denies chest pain, shortness of breath, fevers, chills, nausea, vomiting, orthostasis, dizziness, blurry vision. She does have chronic constipation. Reason For Visit: RIGHT RENAL, BLADDER MASS,HTN URGENCY Physical Exam Vital Signs: Temp Pulse Resp BP Pulse Ox 98.6 F 80 17 123/46 L 94 03/05/18 20:10 03/05/18 20:54 03/05/18 20:10 03/05/18 20:10 03/05/18 20:10 Intake & Output 03/04/18 03/05/18 03/06/18 06:59 06:59 06:59 Intake Total 1977 2757 1157 Output Total 200 Balance 1777 2757 1157 Weight 56.4 kg 58.7 kg General appearance: PRESENT: no acute distress Head exam: PRESENT: atraumatic, normocephalic Eye exam: PRESENT: EOMI, PERRLA. ABSENT: scleral icterus Mouth exam: PRESENT: moist, neck supple Neck exam: ABSENT: lymphadenopathy, meningismus, tenderness, thyromegaly, tracheal deviation Respiratory exam: PRESENT: clear to auscultation nikhil, unlabored. ABSENT: chest wall tenderness, wheezes Cardiovascular exam: PRESENT: RRR Pulses: PRESENT: normal radial pulses Vascular exam: PRESENT: normal capillary refill. ABSENT: pallor GI/Abdominal exam: PRESENT: hernia - Midline ventral hernia, completely reducible., soft, tenderness - At hernia site. ABSENT: distended, firm, rebound Rectal exam: PRESENT: deferred Extremities exam: ABSENT: tenderness Musculoskeletal exam: PRESENT: normal inspection Neurological exam: PRESENT: alert, awake, oriented to person, oriented to place , oriented to time, oriented to situation, CN II-XII grossly intact. ABSENT: motor sensory deficit Psychiatric exam: ABSENT: agitated, anxious, depressed Skin exam: ABSENT: cyanosis, erythema, jaundice, pallor Results Laboratory Results: 03/05/18 04:42 03/05/18 04:42 03/05/18 03/05/18 04:42 04:42 WBC 7.6 RBC 3.44 L Hgb 10.5 L Hct 30.7 L MCV 89 MCH 30.7 MCHC 34.3 RDW 14.6 H Plt Count 194 Seg Neutrophils % 81.6 H Lymphocytes % 8.7 L Monocytes % 9.5 Eosinophils % 0.0 Basophils % 0.2 Absolute Neutrophils 6.2 Absolute Lymphocytes 0.7 Absolute Monocytes 0.7 Absolute Eosinophils 0.0 Absolute Basophils 0.0 Sodium 144.4 Potassium 3.1 L Chloride 104 Carbon Dioxide 32 H Anion Gap 8 BUN 23 H Creatinine 1.36 H Est GFR ( Amer) 46 L Est GFR (Non-Af Amer) 38 L Glucose 113 H Calcium 9.2 Total Bilirubin 0.7 AST 17 ALT 16 Alkaline Phosphatase 65 Total Protein 5.7 L Albumin 3.2 L Impressions: Abdomen/Pelvis CT 03/02/18 15:50 IMPRESSION: 1. There is evidence of marked distortion of the collecting system of the right kidney with adjacent mass extending into the upper pole of the right kidney. The findings could represent transition cell carcinoma invading the kidney or renal cell carcinoma of the upper pole of the right kidney invading the collecting system. There is a prominent extrarenal pelvis on the right with hyperdensity in the collecting system and proximal ureter with possible due mass and/or hemorrhage not excluded. There is a focal area of increased density noted in the posterior right side of the urinary bladder with hemorrhage or mass not excluded. consultation recommended. 2. Findings consistent with atrophic poorly functioning left kidney most consistent with chronic ischemic change. Changes of the renal parenchyma could be secondary to renal infarction. 3. Diffuse significant atherosclerotic change of the entire aorta iliac and femoral vessels with fusiform aneurysm infrarenal abdominal aorta are measuring 3.3 x 3 cm. 4. Evidence of a ventral hernia containing transverse colon without obstruction. Constipation. KUB X-Ray 03/05/18 00:00 IMPRESSION: Mild gaseous distension of the colon. Gas collection is identified in the pelvis which could conceivably represent air within the bladder. Clinical correlation is recommended. Other findings as noted above Assessment & Plan - Diagnosis (1) Abdominal wall hernia Is this a current diagnosis for this admission?: Yes - Plan Summary Plan Summary: This is a 77-year-old female with a midline ventral hernia, constipation, and a new renal mass. On exam today, the patient's hernia is completely reducible. Her x-ray shows gas throughout the colon, without obvious retained stool. At this time, surgical intervention for her hernia would be unwise due to her large renal mass. I recommend workup of this prior to any abdominal surgery. After her renal mass has been addressed, ventral hernia repair can be discussed. Continue fiber and stool softeners at home to combat constipation. Follow-up with [facility] as an outpatient.
[2018-03-06] MEDS: AMPICILLIN SODIUM/SULBACTAM NA 3 GM in NORMAL SALINE 100 ML IV SCH (05:08)
[2018-03-06] MEDS: HEPARIN SOD (PORCINE) 5,000 UNIT/ML 1 ML SYRINGE SUBCUT SCH ×3 (05:10→21:36)
[2018-03-06 05:22] LABS: ABSOLUTE RETICS # 0.055 10^6/uL (0.028-0.122); RETICULOCYTE COUNT (AUTO) 1.66 % (0.66-2.85)
[2018-03-06 05:44] LABS: ALANINE AMINOTRANSFERASE 17 U/L (9-52); ALBUMIN 2.9 g/dL (3.5-5.0); ALKALINE PHOSPHATASE 58 U/L (38-126); ANION GAP 8 (5-19); ASPARTATE AMINO TRANSFERASE 17 U/L (14-36); BILIRUBIN,DIRECT 0.3 mg/dL (0.0-0.4); BILIRUBIN,TOTAL 0.6 mg/dL (0.2-1.3); BLOOD UREA NITROGEN 27 mg/dL (7-20); CARBON DIOXIDE 33 mmol/L (22-30); CHLORIDE 100 mmol/L (98-107); GLUCOSE 74 mg/dL (75-110); IRON(TIBC) 31.3 ug/dL (37-170); POTASSIUM 3.4 mmol/L (3.6-5.0); SODIUM 141.1 mmol/L (137-145); TOTAL PROTEIN 5.3 g/dL (6.3-8.2)
[2018-03-06 06:48] LABS: FOLATE 7.06 ng/mL (>2.76)
[2018-03-06] MEDS: IPRATROPIUM/ALBUTEROL 0.5-2.5 MG/3 ML AMPUL NEB SCH ×3 (07:59→23:41)
[2018-03-06] MEDS ORDERED: OXYCODONE-ACETAMINOPHEN 5-325 MG TABLET PO PRN (08:02)
--- NOTE | 2018-03-06 08:08 | PDOC PROGRESS REPORT ---
Subjective Progress Note for:: 03/06/18 Subjective:: The patient states to feel much better. Her abdominal pain has resolved. She did have 3 good bowel movements yesterday. Her blood pressure is much better controlled. Reason For Visit: RIGHT RENAL, BLADDER MASS,HTN URGENCY Physical Exam Vital Signs: Temp Pulse Resp BP Pulse Ox 98.0 F 73 18 100/53 L 86 L 03/06/18 05:00 03/06/18 08:01 03/06/18 08:01 03/06/18 05:00 03/06/18 08:01 Intake & Output 03/05/18 03/06/18 03/07/18 06:59 06:59 06:59 Intake Total 2757 1790 Balance 2757 1790 Weight 58.7 kg 59.1 kg General appearance: PRESENT: mild distress Head exam: PRESENT: atraumatic Eye exam: PRESENT: conjunctiva pink Neck exam: ABSENT: carotid bruit, JVD Respiratory exam: PRESENT: rhonchi Cardiovascular exam: PRESENT: RRR, +S1, +S2 Pulses: PRESENT: +1 pedal pulses bilateral GI/Abdominal exam: PRESENT: normal bowel sounds, soft. ABSENT: guarding, tenderness Extremities exam: PRESENT: full ROM Musculoskeletal exam: PRESENT: ambulatory Results Laboratory Results: 03/05/18 04:42 03/06/18 04:32 03/06/18 03/06/18 04:32 04:32 Retic Count (auto) 1.66 Absolute Retic 0.055 Sodium 141.1 Potassium 3.4 L Chloride 100 Carbon Dioxide 33 H Anion Gap 8 BUN 27 H Creatinine 1.49 H Est GFR ( Amer) 41 L Est GFR (Non-Af Amer) 34 L Glucose 74 L Calcium 9.0 Magnesium 2.8 H Iron 31.3 L TIBC 244 L % Saturation 13 Ferritin 28.00 Total Bilirubin 0.6 AST 17 ALT 17 Alkaline Phosphatase 58 Total Protein 5.3 L Albumin 2.9 L Vitamin B12 369.0 Folate 7.06 Impressions: Abdomen/Pelvis CT 03/02/18 15:50 IMPRESSION: 1. There is evidence of marked distortion of the collecting system of the right kidney with adjacent mass extending into the upper pole of the right kidney. The findings could represent transition cell carcinoma invading the kidney or renal cell carcinoma of the upper pole of the right kidney invading the collecting system. There is a prominent extrarenal pelvis on the right with hyperdensity in the collecting system and proximal ureter with possible due mass and/or hemorrhage not excluded. There is a focal area of increased density noted in the posterior right side of the urinary bladder with hemorrhage or mass not excluded. consultation recommended. 2. Findings consistent with atrophic poorly functioning left kidney most consistent with chronic ischemic change. Changes of the renal parenchyma could be secondary to renal infarction. 3. Diffuse significant atherosclerotic change of the entire aorta iliac and femoral vessels with fusiform aneurysm infrarenal abdominal aorta are measuring 3.3 x 3 cm. 4. Evidence of a ventral hernia containing transverse colon without obstruction. Constipation. KUB X-Ray 03/05/18 00:00 IMPRESSION: Mild gaseous distension of the colon. Gas collection is identified in the pelvis which could conceivably represent air within the bladder. Clinical correlation is recommended. Other findings as noted above Assessment & Plan - Diagnosis (1) Abdominal wall hernia Is this a current diagnosis for this admission?: Yes Plan: Stable continue current treatment no need for any surgical interventions at present time (2) COPD exacerbation Is this a current diagnosis for this admission?: Yes Plan: Continue current medications (3) Constipation Qualifiers: Constipation type: chronic idiopathic constipation Qualified Code(s): K59.04 - Chronic idiopathic constipation Is this a current diagnosis for this admission?: Yes Plan: Resolved continue current treatment (4) Diabetes Qualifiers: Diabetes mellitus type: type 2 Is this a current diagnosis for this admission?: Yes Plan: Continue current treatment (5) Hypertensive urgency Is this a current diagnosis for this admission?: Yes Plan: Improved with increase in blood pressure medications (6) Kidney malignant neoplasm Qualifiers: Laterality: right Qualified Code(s): C64.1 - Malignant neoplasm of right kidney, except renal pelvis Is this a current diagnosis for this admission?: Yes Plan: We will continue current treatment and arrange for oncology follow-up as an outpatient and a follow-up at [facility] with oncologic urologist
[2018-03-06] MEDS: POTASSIUM CHLORIDE 10 MEQ TABLET.SA PO SCH ×2 (09:11→21:33)
[2018-03-06] MEDS: PSYLLIUM SEED-SF 5.85 GM PACKET PO SCH ×2 (09:11→18:08)
[2018-03-06] MEDS: LANSOPRAZOLE 15 MG TAB.RAP.DR PO SCH (09:11)
[2018-03-06] MEDS: HYDRALAZINE HCL 50 MG TABLET PO SCH ×2 (09:11→21:34)
[2018-03-06] MEDS: LABETALOL HCL 200 MG TABLET PO SCH ×2 (09:11→21:35)
[2018-03-06] MEDS: GABAPENTIN 300 MG CAPSULE PO SCH ×2 (09:11→21:34)
[2018-03-06] MEDS: DOCUSATE SODIUM 100 MG CAPSULE PO SCH ×2 (09:11→18:08)
[2018-03-06] MEDS: POLYETHYLENE GLYCOL 3350 POWDER 17 GM/1 PACKET PO SCH (09:11)
[2018-03-06] MEDS: LOSARTAN POTASSIUM 50 MG TABLET PO SCH (09:12)
[2018-03-06] MEDS: NICOTINE 7 MG/24 HR PATCH.TD24 TD SCH (09:15)
[2018-03-06] MEDS: ATORVASTATIN CALCIUM 80 MG TABLET PO SCH (21:34)
[2018-03-06] MEDS: INSULIN GLARGINE,HUM.REC.ANLOG 300 UNIT/3 ML INSULN.PEN SUBCUT SCH (21:38)
[2018-03-07] MEDS: HEPARIN SOD (PORCINE) 5,000 UNIT/ML 1 ML SYRINGE SUBCUT SCH (05:17)
[2018-03-07 05:25] LABS: ABSOLUTE EOSINOPHILS # (AUTO) 0.1 10^3/uL (0.0-0.6); ABSOLUTE LYMPHOCYTES (AUTO) 1.1 10^3/uL (0.5-4.7); ABSOLUTE MONOCYTES (AUTO) 0.7 10^3/uL (0.1-1.4); ABSOLUTE NEUT (AUTO) 4.5 10^3/uL (1.7-8.2); BASOPHILS % (AUTO) 0.3 % (0-2); EOSINOPHILS % (AUTO) 1.5 % (0-6); HEMATOCRIT 27.6 % (36.0-47.0); HEMOGLOBIN 9.5 g/dL (12.0-15.5); LYMPHOCYTES % (AUTO) 16.6 % (13-45); MEAN CORPUSCULAR HEMOGLOBIN 30.9 pg (27.0-33.4); MEAN CORPUSCULAR HGB CONC 34.4 g/dL (32.0-36.0); MEAN CORPUSCULAR VOLUME 90 fl (80-97); MONOCYTES % (AUTO) 10.7 % (3-13); PLATELET COUNT 208 10^3/uL (150-450); RED BLOOD COUNT 3.08 10^6/uL (3.72-5.28); RED CELL DISTRIBUTION WIDTH 14.2 % (11.5-14.0); SEGMENTED NEUTROPHILS % (AUTO) 70.9 % (42-78); TOTAL CELLS COUNTED % (AUTO) 100 %; WHITE BLOOD COUNT 6.4 10^3/uL (4.0-10.5)
[2018-03-07 05:56] LABS: ALANINE AMINOTRANSFERASE 18 U/L (9-52); ALBUMIN 2.7 g/dL (3.5-5.0); ALKALINE PHOSPHATASE 56 U/L (38-126); ANION GAP 8 (5-19); ASPARTATE AMINO TRANSFERASE 15 U/L (14-36); BILIRUBIN,DIRECT 0.3 mg/dL (0.0-0.4); BILIRUBIN,TOTAL 0.5 mg/dL (0.2-1.3); BLOOD UREA NITROGEN 32 mg/dL (7-20); CALCIUM 8.8 mg/dL (8.4-10.2); CARBON DIOXIDE 31 mmol/L (22-30); CHLORIDE 98 mmol/L (98-107); GLUCOSE 50 mg/dL (75-110); POTASSIUM 3.5 mmol/L (3.6-5.0); SODIUM 136.8 mmol/L (137-145); TOTAL PROTEIN 5.1 g/dL (6.3-8.2)
[2018-03-07] MEDS: IPRATROPIUM/ALBUTEROL 0.5-2.5 MG/3 ML AMPUL NEB SCH (08:23)
[2018-03-07 08:38] VITALS: BP 111/41
--- NOTE | 2018-03-07 08:40 | PDOC DISCHARGE SUMMARY ---
General - Admit/Disc Date/PCP Admission Date/Primary Care Provider: 03/02/18 19:12 DENIS SALGADO, Discharge Date: 03/07/18 - Discharge Diagnosis (1) Abdominal wall hernia Is this a current diagnosis for this admission?: Yes Summary: We will reevaluate as an outpatient when the decision is made about the kidney mass and possible surgery (2) COPD exacerbation Is this a current diagnosis for this admission?: Yes Summary: The patient will need to continue with home oxygen at 2 L because of her O2 saturation on room air in the hospital of 85%. Continue current nebulizer and inhaler treatments (3) Constipation Is this a current diagnosis for this admission?: Yes (4) Diabetes Is this a current diagnosis for this admission?: Yes (5) Hypertensive urgency Is this a current diagnosis for this admission?: Yes Summary: Continue current medications as the current treatment at the hospital (6) Kidney malignant neoplasm Is this a current diagnosis for this admission?: Yes Summary: Follow-up with Dr. Hernandez as an outpatient on Saturday for urgent scheduling with oncologic urology at [facility] (7) Acute renal failure superimposed on chronic kidney disease Is this a current diagnosis for this admission?: Yes Summary: We will continue checking on BUN and creatinine. Patient has been advised to drink plenty of water for hydration and be seen for a possible nephrectomy at [facility] and hopefully repair of the abdominal wall hernia (8) Smoker Is this a current diagnosis for this admission?: Yes - Additional Information Resuscitation Status: Full Code Discharge Diet: Cardiac, Diabetic Discharge Activity: Activity As Tolerated Prescriptions: Ondansetron HCl/Pf [Zofran Inj/Pf 4 mg/2 ml Sdv] 4 mg IV Q4HP PRN #60 vial PRN Reason: Oxycodone HCl/Acetaminophen [Percocet 5-325 mg Tablet] 1 tab PO Q4HP PRN #60 tablet PRN Reason: Hydralazine HCl [Apresoline 50 mg Tablet] 50 mg PO Q12 #60 tablet Labetalol HCl [Normodyne 200 mg Tablet] 100 mg PO Q12 #60 tablet Home Medications: Atorvastatin Calcium [Lipitor 80 mg Tablet] 80 mg PO QHS 03/03/18 Ergocalciferol (Vitamin D2) [Drisdol 50,000 unit (1.25MG) Capsule] 50,000 unit PO [id number] 03/03/18 Ferrous Sulfate [Feosol 325 mg Tablet] 325 mg PO DAILY 03/03/18 Gabapentin [Neurontin 300 mg Capsule] 300 mg PO Q12 03/03/18 Losartan Potassium [Cozaar 100 mg Tablet] 100 mg PO DAILY 03/03/18 Metformin HCl [Glucophage 500 mg Tablet] 500 mg PO BID 03/03/18 Omeprazole 20 mg PO DAILY 03/03/18 Acetaminophen [Tylenol 325 mg Tablet] 650 mg PO Q4HP PRN tablet 03/07/18 Hydralazine HCl [Apresoline 50 mg Tablet] 50 mg PO Q12 #60 tablet 03/07/18 Labetalol HCl [Normodyne 200 mg Tablet] 100 mg PO Q12 #60 tablet 03/07/18 Ondansetron HCl/Pf [Zofran Inj/Pf 4 mg/2 ml Sdv] 4 mg IV Q4HP PRN #60 vial 03/07 Oxycodone HCl/Acetaminophen [Percocet 5-325 mg Tablet] 1 tab PO Q4HP PRN #60 tablet 03/07/18 History of Present Illness History of Present Illness: JERILYN MCCARTY is a 77 year old female Hospital Course Hospital Course: The patient was admitted with an acute abdominal pain. She was also hypertensive urgently needed to be through the IVs. Her abdominal pain was eventually decided to be related to her fecal impaction and constipation. She did have an easily reducible abdominal wall hernia. Unfortunately when the CAT scan for abdominal pain was done it was discovered that the patient has a probably malignant neoplasm of her kidney and the other kidney is atrophic. Discussed with the patient the need for a follow-up with the [facility] for a possible nephrectomy. Arrangements will be made as an outpatient as soon as possible. Patient was also discovered to be hypoxemic at rest and home O2 has been prescribed Physical Exam Vital Signs: Temp Pulse Resp BP Pulse Ox 98.7 F 57 L 16 107/44 L 93 03/07/18 03:39 03/07/18 07:00 03/07/18 03:39 03/07/18 03:39 03/07/18 03:39 Intake & Output 03/06/18 03/07/18 03/08/18 06:59 06:59 06:59 Intake Total 1789 1910 Balance 1789 1910 Weight 59.1 kg 60.9 kg General appearance: PRESENT: mild distress Head exam: PRESENT: atraumatic Mouth exam: PRESENT: dry mucosa Neck exam: PRESENT: carotid bruit. ABSENT: JVD Respiratory exam: PRESENT: rhonchi Cardiovascular exam: PRESENT: RRR, +S1, +S2 Pulses: PRESENT: +1 pedal pulses bilateral GI/Abdominal exam: PRESENT: normal bowel sounds, soft Extremities exam: PRESENT: full ROM Musculoskeletal exam: PRESENT: ambulatory Neurological exam: PRESENT: alert, awake Results Laboratory Results: 03/07/18 04:40 03/07/18 04:40 03/07/18 03/07/18 04:40 04:40 WBC 6.4 RBC 3.08 L Hgb 9.5 L Hct 27.6 L MCV 90 MCH 30.9 MCHC 34.4 RDW 14.2 H Plt Count 208 Seg Neutrophils % 70.9 Lymphocytes % 16.6 Monocytes % 10.7 Eosinophils % 1.5 Basophils % 0.3 Absolute Neutrophils 4.5 Absolute Lymphocytes 1.1 Absolute Monocytes 0.7 Absolute Eosinophils 0.1 Absolute Basophils 0.0 Sodium 136.8 L Potassium 3.5 L Chloride 98 Carbon Dioxide 31 H Anion Gap 8 BUN 32 H Creatinine 2.00 H Est GFR ( Amer) 29 L Est GFR (Non-Af Amer) 24 L Glucose 50 L Calcium 8.8 Total Bilirubin 0.5 AST 15 ALT 18 Alkaline Phosphatase 56 Total Protein 5.1 L Albumin 2.7 L Impressions: Abdomen/Pelvis CT 03/02/18 15:50 IMPRESSION: 1. There is evidence of marked distortion of the collecting system of the right kidney with adjacent mass extending into the upper pole of the right kidney. The findings could represent transition cell carcinoma invading the kidney or renal cell carcinoma of the upper pole of the right kidney invading the collecting system. There is a prominent extrarenal pelvis on the right with hyperdensity in the collecting system and proximal ureter with possible due mass and/or hemorrhage not excluded. There is a focal area of increased density noted in the posterior right side of the urinary bladder with hemorrhage or mass not excluded. consultation recommended. 2. Findings consistent with atrophic poorly functioning left kidney most consistent with chronic ischemic change. Changes of the renal parenchyma could be secondary to renal infarction. 3. Diffuse significant atherosclerotic change of the entire aorta iliac and femoral vessels with fusiform aneurysm infrarenal abdominal aorta are measuring 3.3 x 3 cm. 4. Evidence of a ventral hernia containing transverse colon without obstruction. Constipation. KUB X-Ray 03/05/18 00:00 IMPRESSION: Mild gaseous distension of the colon. Gas collection is identified in the pelvis which could conceivably represent air within the bladder. Clinical correlation is recommended. Other findings as noted above Qualifiers - * PATIENT BEING DISCHARGED WITH ANY OF THE FOLLOWING DIAGNOSIS: No
[2018-03-07] MEDS: PSYLLIUM SEED-SF 5.85 GM PACKET PO SCH (09:09)
[2018-03-07] MEDS: LANSOPRAZOLE 15 MG TAB.RAP.DR PO SCH (09:09)
[2018-03-07] MEDS: POLYETHYLENE GLYCOL 3350 POWDER 17 GM/1 PACKET PO SCH (09:09)
[2018-03-07] MEDS: HYDRALAZINE HCL 50 MG TABLET PO SCH (09:10)
[2018-03-07] MEDS: GABAPENTIN 300 MG CAPSULE PO SCH (09:10)
[2018-03-07] MEDS: LABETALOL HCL 200 MG TABLET PO SCH (09:10)
[2018-03-07] MEDS: DOCUSATE SODIUM 100 MG CAPSULE PO SCH (09:10)
[2018-03-07] MEDS: POTASSIUM CHLORIDE 10 MEQ TABLET.SA PO SCH (09:10)
[2018-03-07] MEDS: LOSARTAN POTASSIUM 50 MG TABLET PO SCH (09:10)
[2018-03-07] MEDS: NICOTINE 7 MG/24 HR PATCH.TD24 TD SCH (09:15)
[2018-03-16] MEDS ORDERED: ERGOCALCIFEROL (VITAMIN D2) 50000 UNIT (1.25 MG) CAPSULE PO SCH (12:00)
== END 2018-03-07 11:20 | disposition home or self-care (01) | DRG 392 ==
LOC: ER 14:12 → EH 19:12 → 3W 03-03 00:14
PROVIDERS: ADMIT Internal Medicine; ATTEND Internal Medicine
PROC: 3E0F73Z Introduction of Anti-inflammatory into Respiratory Tract, Via Natural or Artificial Opening (ICD-10-PCS; principal; 2018-03-03)
DX: K59.04 Chronic idiopathic constipation (principal); K43.6 Other and unspecified ventral hernia with obstruction, without gangrene; C64.1 Malignant neoplasm of right kidney, except renal pelvis; J44.1 Chronic obstructive pulmonary disease with (acute) exacerbation; N17.9 Acute kidney failure, unspecified; I16.0 Hypertensive urgency; E11.22 Type 2 diabetes mellitus with diabetic chronic kidney disease; I12.9 Hypertensive chronic kidney disease with stage 1 through stage 4 chronic kidney disease, or unspecified chronic kidney disease; N18.9 Chronic kidney disease, unspecified; E78.00 Pure hypercholesterolemia, unspecified; E11.51 Type 2 diabetes mellitus with diabetic peripheral angiopathy without gangrene; K21.9 Gastro-esophageal reflux disease without esophagitis; E11.40 Type 2 diabetes mellitus with diabetic neuropathy, unspecified; E87.6 Hypokalemia; R31.0 Gross hematuria; F17.210 Nicotine dependence, cigarettes, uncomplicated; I25.2 Old myocardial infarction; Z99.81 Dependence on supplemental oxygen; Z79.899 Other long term (current) drug therapy; Z90.49 Acquired absence of other specified parts of digestive tract; Z86.010 Personal history of colon polyps; Z90.710 Acquired absence of both cervix and uterus; Z79.82 Long term (current) use of aspirin; Z79.84 Long term (current) use of oral hypoglycemic drugs
CPT/HCPCS: 36415; 74018; 74177; 80048; 80053; 81001; 82607; 82728; 82746; 82962; 83540; 83550; 83735; 85025; 85045; 85610; 87086; 93005; 93010; 94640; 94799; 96374; 96375; 99285; J0295; J0360; J1200; J1644; J1815; J1940; J2270; J2405; J2765; J3010; J3490; J7030; J7620; S0119

== ENCOUNTER → 2018-06-17 | Outpatient (CLI) | payer MEDICARE | LOC: OD 08:17 | PROVIDERS: ATTEND Urology | DX: C68.9 Malignant neoplasm of urinary organ, unspecified (principal) | CPT/HCPCS: 36415; 82565; 87086 ==

== ENCOUNTER 2018-07-07 05:46 | Day surgery (SDC) | payer MEDICARE ==
[~2018-07-07 05:46] MED LIST: CEFAZOLIN 1 GM/D5W RTU 1 GM/50 ML RTUPB IV PRN; DEXTROSE 5%-1/2 NORMAL SALINE 1,000 ML IV PRN; DIAZEPAM 5 MG TABLET PO PRN; OXYCODONE-ACETAMINOPHEN 5-325 MG TABLET PO PRN
[2018-07-07] MEDS ORDERED: CEFAZOLIN 1 GM/D5W RTU 1 GM/50 ML RTUPB IV ONE (06:22)
--- NOTE | 2018-07-07 06:37 | RADIOLOGY REPORT (SQ) ---
EXAM DESCRIPTION: XR CHEST 1 VIEW COMPLETED DATE/TME: 07/07/2018 00:00 CLINICAL HISTORY: 77 years Female, surgery COMPARISON: 07.17.15 NUMBER OF VIEWS/TECHNIQUE: 1/AP FINDINGS: Adequate lung volume, clear parenchyma, normal cardiac silhouette, atherosclerosis, and intact bony thorax. IMPRESSION: No acute cardiopulmonary findings.
[2018-07-07 06:38] LABS: HEMATOCRIT 28.3 % (36.0-47.0); HEMOGLOBIN 9.6 g/dL (12.0-15.5); MEAN CORPUSCULAR HEMOGLOBIN 30.4 pg (27.0-33.4); MEAN CORPUSCULAR HGB CONC 34.1 g/dL (32.0-36.0); MEAN CORPUSCULAR VOLUME 89 fl (80-97); PLATELET COUNT 103 10^3/uL (150-450); RED BLOOD COUNT 3.18 10^6/uL (3.72-5.28); RED CELL DISTRIBUTION WIDTH 14.8 % (11.5-14.0); WHITE BLOOD COUNT 4.2 10^3/uL (4.0-10.5)
[2018-07-07 06:50] LABS: ANION GAP 6 (5-19); BLOOD UREA NITROGEN 27 mg/dL (7-20); CALCIUM 9.6 mg/dL (8.4-10.2); CARBON DIOXIDE 26 mmol/L (22-30); CHLORIDE 108 mmol/L (98-107); GLUCOSE 100 mg/dL (75-110); POTASSIUM 4.4 mmol/L (3.6-5.0); SODIUM 140.1 mmol/L (137-145)
[2018-07-07] MEDS ORDERED: OXYCODONE-ACETAMINOPHEN 5-325 MG TABLET ONE (06:50)
[2018-07-07] MEDS ORDERED: DIAZEPAM 5 MG TABLET ONE (06:50)
[2018-07-07] MEDS ORDERED: MIDAZOLAM 2 MG/2 ML INJ ONE (07:54)
[2018-07-07] MEDS ORDERED: LIDOCAINE 0.5% INJ-PF (5 MG/ML) 50 ML SDV ONE (07:54)
[2018-07-07] MEDS ORDERED: FENTANYL CITRATE INJ/PF 100 MCG/2 ML AMPUL ONE (07:54)
[2018-07-07] MEDS ORDERED: BACITRACIN INJ 50,000 UNIT VIAL ONE (07:55)
--- NOTE | 2018-07-07 10:02 | Discharge Summary ---
Discharge Summary (SDC) - Discharge Final Diagnosis: Renal cancer. Date of Surgery: 07/07/18 Discharge Date: 07/07/18 Condition: Fair Treatment or Instructions: Discharge home [after recovery per ASU criteria]. Diet,as tolerated, when fully awake advance as tolerated. Activities within moderation encouraged. Follow up in my office by appointment in about [1 week]. Call for appointment. Leave wounds [covered], [keep clean and dry, until office visit in 1 week]. Hold of on school/work [until evaluation in office]. Meds per med rec. Percocet. May shower [in 48 hrs], [try to keep operated area as dry as possible]. Prescriptions: Oxycodone HCl/Acetaminophen [Percocet 5-325 mg Tablet] 1 tab PO ASDIR PRN #15 tab PRN Reason: Referrals: DENIS SALGADO MD [Primary Care Provider] - Discharge Diet: As Tolerated Respiratory Treatments at Home: Deep Breathing/Coughing Discharge Activity: Activity As Tolerated Report the Following to Your Physician Immediately: Shortness of Breath, Unusual Bleeding
--- NOTE | 2018-07-07 10:04 | Operative Report ---
Operative Report DATE OF SURGERY: 07/07/18 PREOPERATIVE DIAGNOSIS: Renal cancer POSTOPERATIVE DIAGNOSIS: Renal cancer OPERATION: 1. Ultrasound evaluation of right internal jugular vein. 2. Insertion of Port-A-Cath via real time access in right internal jugular vein. 3. Angiogram and interpretation. SURGEON: YASSINE FERRARI DEVELOPMENT SCIENTIST: None. ANESTHESIA: Moderate Sedation TISSUE REMOVED OR ALTERED: Not applicable. COMPLICATIONS: None. ESTIMATED BLOOD LOSS: 5 mL. INTRAOPERATIVE FINDINGS: Satisfactory right internal jugular vein, estimated 1.8 cm. Satisfactory access and support Port-A-Cath. Easy egress of blood and ingress of heparinized solution. Smooth flow of contrast through the right atrium, ventricle and pulmonary outflow tract. PROCEDURE: After obtaining informed consent, the patient was taken to the Business Process Manager and positioned supine. The [right] neck and chest were prepared with chlorhexidine and draped out with sterile linen. After the " universal timeout", in which it was verified that the patient continued to receive antibiotic, the procedure commenced. A steriley sheathed ultrasound probe was used to evaluate the [ right] internal jugular vein. Local anesthesia was infiltrated adjacent to the probe. Access into the [right] internal jugular vein was obtained using a micropuncture needle, followed by micropuncture wire and then a micropuncture catheter. This was followed by introduction of a 0.035 guidewire the tip of which was placed down into the inferior vena cava . The port sites was marked , locally anesthetized and incision made. Dissection now proceeded to the deep subcutaneous subcutaneous tissues so that a pocket for the port was made. Meticulous hemostasis was secured and the catheter was tunneled between the 2 incisions. Proximally, the catheter was now positioned using a peel-away sheath. Distally the catheter was tailored to an appropriate length and then mated to the port using the contained fixating device. The port was now placed in the pocket and the catheter optimally positioned. The port was accessed with a Wallace needle and an angiogram done under digital subtraction. The findings as dictated. With adequate and satisfactory positioning, both lumens of the chamber were irrigated with heparinized solution. The wounds were now closed using interrupted 3-0 PDS to the subcutaneous tissues and a continuous subcuticular suture of 4-0 Monocryl to the skin. These are reinforced with Steri-Strips over benzoin and then dressings applied. Time: 0.1 minute. Dose: 5.6 nik-johnson. Contrast: 5 Mls. Isovue 300. Copies of the dictated operative report for Dr. Yassine Schaeffer MD.
[2018-07-07 10:32] VITALS: BP 135/78
--- NOTE | 2018-07-07 11:31 | RADIOLOGY REPORT (SQ) ---
EXAM DESCRIPTION: PORTACATH INSERTION; GUIDANCE FLUOROSCOPIC COMPLETED DATE/TIME: 07/07/2018 9:11 am REASON FOR STUDY: C66.1 MALIGNANT NEOPLASM OF RIGHT URETER C66.1 MALIGNANT NEOPLASM OF RIGHT URETER COMPARISON: AP chest 07/07/2018 FLUOROSCOPY TIME: Less than 5 seconds 20 digital images saved to PACS. TECHNIQUE: Intra-operative images acquired during surgical procedure to evaluate progress. NUMBER OF IMAGES: 20 digital images LIMITATIONS: None. FINDINGS: Intra procedural imaging and fluoro during placement of a right-sided permanent central li ne with the tip in the superior vena cava. Please see the operative report for further details IMPRESSION: Intra procedural imaging and fluoro COMMENT: Quality ID 145: Final reports for procedures using fluoroscopy that document radiation exp osure indices, or exposure time and number of fluorographic images (if radiation exposure indices are not available) Please consult full operative report of the attending physician for description of the procedure. TECHNICAL DOCUMENTATION: JOB ID: [id number] [employer]- All Rights Reserved Reading location - IP/workstation name: [email or web address]
--- NOTE | 2018-07-07 11:31 | RADIOLOGY REPORT (SQ) ---
EXAM DESCRIPTION: PORTACATH INSERTION; GUIDANCE FLUOROSCOPIC COMPLETED DATE/TIME: 07/07/2018 9:11 am REASON FOR STUDY: C66.1 MALIGNANT NEOPLASM OF RIGHT URETER C66.1 MALIGNANT NEOPLASM OF RIGHT URETER COMPARISON: AP chest 07/07/2018 FLUOROSCOPY TIME: Less than 5 seconds 20 digital images saved to PACS. TECHNIQUE: Intra-operative images acquired during surgical procedure to evaluate progress. NUMBER OF IMAGES: 20 digital images LIMITATIONS: None. FINDINGS: Intra procedural imaging and fluoro during placement of a right-sided permanent central li ne with the tip in the superior vena cava. Please see the operative report for further details IMPRESSION: Intra procedural imaging and fluoro COMMENT: Quality ID 145: Final reports for procedures using fluoroscopy that document radiation exp osure indices, or exposure time and number of fluorographic images (if radiation exposure indices are not available) Please consult full operative report of the attending physician for description of the procedure. TECHNICAL DOCUMENTATION: JOB ID: [id number] [employer]- All Rights Reserved Reading location - IP/workstation name: [email or web address]
== END 2018-07-07 10:30 | disposition home or self-care (01) ==
LOC: CCL 05:46
PROVIDERS: ATTEND Surgery
DX: C66.1 Malignant neoplasm of right ureter (principal); E78.00 Pure hypercholesterolemia, unspecified; E11.9 Type 2 diabetes mellitus without complications; I10 Essential (primary) hypertension; I73.9 Peripheral vascular disease, unspecified; K21.9 Gastro-esophageal reflux disease without esophagitis; J44.9 Chronic obstructive pulmonary disease, unspecified; Z79.899 Other long term (current) drug therapy; Z79.84 Long term (current) use of oral hypoglycemic drugs; Z79.51 Long term (current) use of inhaled steroids
CPT/HCPCS: 36415; 85027; 80048; 36561; 76937; 77001; 71045; C1752; C1788; Q9967; J2250; J3490 ×2; J0690; A9270 ×2; J3010; J1644

== ENCOUNTER → 2018-09-09 | Outpatient (CLI) | payer MEDICARE ==
--- NOTE | 2018-09-09 10:45 | RADIOLOGY REPORT (SQ) ---
EXAM DESCRIPTION: CT CHEST WITH COMPLETED DATE/TIME: 09/09/2018 10:13 am REASON FOR STUDY: MAL MISAEL OF R URETER C66.1 MALIGNANT NEOPLASM OF RIGHT URETER COMPARISON: None. TECHNIQUE: CT scan of the chest performed using helical scanning technique with dynamic intravenous contrast injection. Images reviewed with lung, soft tissue and bone windows. Reconstructed coronal and sagittal MPR and MIP images reviewed. All images stored on PACS. All CT scanners at this facility use dose modulation, iterative reconstruction, and/or weight based d osing when appropriate to reduce radiation dose to as low as reasonably achievable (ALARA). [facility]: Dose Right [facility]: CareDose [facility]: Dose Right [facility]: Teradose 4D [facility]: [employer] CONTRAST TYPE AND DOSE: 50.2 ML Omnipaque 350 RENAL FUNCTION: Creatinine - 1.1 GFR=22 RADIATION DOSE: Total exam DLP: 601.77 mGy-cm LIMITATIONS: None. FINDINGS: LUNGS AND PLEURA: A lobulated linear nodule in the right upper lobe measures 1.8 cm, axia l image 45, series 6. A sub- pleural 1.6 cm in AP diameter lung cyst or bulla lies adjacent to the n odular density. A very other very tiny parenchymal and subpleural nodules are noted. Mild emphysematous changes in the lungs. No pneumothorax or pleural effusion. The central airways a re clear. HILAR AND MEDIASTINAL STRUCTURES: No identified masses or abnormal nodes. HEART AND VASCULAR STRUCTURES: Mild atherosclerotic changes involving the thoracic aorta. Coronary artery calcifications. The central pulmonary vasculature is prominent raising the question of underly ing pulmonary hypertension. No central pulmonary emboli. No pericardial effusion. HARDWARE: Right Vehjff-F-Yqno catheter. UPPER ABDOMEN: Please see CT abdomen report. THYROID AND OTHER SOFT TISSUES: The visualized thyroid gland is heterogenous in appearance. No mass es. No adenopathy. BONES: No significant finding. OTHER: Small hiatal hernia. An air-fluid level in the mid esophagus with reflux into the mid-distal esophagus suggested. IMPRESSION: 1. An indeterminate lobular nodule in the right upper lobe. A few other very tiny pare nchymal and subpleural nodules are noted. PET/CT examination may be helpful. 2. Mild emphysematous changes in the lungs. 3. The central pulmonary vasculature is prominent, raising the question of underlying pulmonary hype rtension. 4. Additional findings as above. TECHNICAL DOCUMENTATION: JOB ID: [id number] Quality ID # [id number]: Final reports with documentation of one or more dose reduction techniques (e.g., Au tomated exposure control, adjustment of the mA and/or kV according to patient size, use of iterative reconstruction technique) 2010 [employer]- All Rights Reserved Reading location - IP/workstation name: [email or web address]
--- NOTE | 2018-09-09 11:05 | RADIOLOGY REPORT (SQ) ---
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 No oral contrast. Images reviewed with lung, soft tissue, and bone windows. Reconstructed coronal and sagittal MPR images reviewed. Delayed images for evaluation of the urinary system also acquired. All images stored on PACS. All CT scanners at this facility use dose modulation, iterative reconstruction, and/or weight based d osing when appropriate to reduce radiation dose to as low as reasonably achievable (ALARA). [facility]: Dose Right [facility]: CareDose [facility]: Dose Right [facility]: Teradose 4D [facility]: [employer] CONTRAST TYPE AND DOSE: contrast/concentration: Isovue 350.00 mg/ml; Total Contrast Delivered: 50.0 ml; Total Saline Delivered: 65.0 ml RENAL FUNCTION: Creatinine - 1.1 BUN=22 RADIATION DOSE: CT Rad equipment meets quality standard of care and radiation dose reduction techniq ues were employed. CTDIvol: 4.5 - 5.3 mGy. DLP: 602 mGy-cm.. LIMITATIONS: None. FINDINGS: LOWER CHEST: Please see CT chest report. LIVER: Stable too small to characterize hypoattenuated hepatic lesions. No dilated ducts. The hepa tic and portal veins are patent. SPLEEN: Normal size. No focal lesions. PANCREAS: No masses. No significant calcifications. No adjacent inflammation or peripancreatic fluid collections. Pancreatic duct not dilated. GALLBLADDER: Prior cholecystectomy. ADRENAL GLANDS: Stable bilateral mild nodular thickening of the adrenal glands. RIGHT KIDNEY AND URETER: interval placement of double-J ureteral stent, in appropriate location. Imp rovement in the appearance of the right kidney and renal collecting system masses. The mass in the u pper pole of the kidney has decreased in size. On the current examination it measures approximately 5.4 cm in AP diameter, compared to 7.0 cm in diameter on the prior study, measurements taken in the c oronal plane. The mass in the renal pelvis which extended into the renal collecting system and proxi mal ureter has also significantly decreased in size. Stable appearing calcifications. LEFT KIDNEY AND URETER: Atrophic appearing left kidney, stable finding. Intrarenal vascular calcifi cations. No solid masses. No hydronephrosis or hydroureter. AORTA AND VESSELS: Dense atherosclerotic changes involving the abdominal aorta and branch vessels. No significant interval change in the infrarenal abdominal aortic aneurysm measuring 3.3 cm x 3.0 cm in transverse and AP dimensions. No dissection. Renal arteries, SMA, celiac without stenosis. RETROPERITONEUM: No retroperitoneal adenopathy, hemorrhage or masses. BOWEL AND PERITONEAL CAVITY: Constipation. No masses or inflammatory changes. No free fluid or perit little masses. APPENDIX: Normal. PELVIS: Prior hysterectomy. No mass. No free fluid. Normal bladder. ABDOMINAL WALL: Stable appearing ventral midline abdominal wall hernia contains transverse colon, fa t and small mesenteric vessels. No evidence of strangulation or obstruction. BONES: The osseous structures are stable in appearance. OTHER: No other significant finding. IMPRESSION: 1. Since the previous examination dated 03/02/2018, interval improvement with decrease i n size of the mass in the upper pole of the right kidney and the mass involving the right renal pelvi s which extended into the right renal collecting system and proximal ureter. Interval placement of D ouble-J ureteral stent, in appropriate location. 2.. Stable right renal calculi. 3. Stable appearance to the infrarenal abdominal aortic aneurysm. 4. Additional stable findings as above. TECHNICAL DOCUMENTATION: JOB ID: [id number] Quality ID # [id number]: Final reports with documentation of one or more dose reduction techniques (e.g., Au tomated exposure control, adjustment of the mA and/or kV according to patient size, use of iterative reconstruction technique) 2010 [employer]- All Rights Reserved Reading location - IP/workstation name: [email or web address]
== END ==
LOC: RAD 09:43
PROVIDERS: ATTEND Internal Medicine
DX: C66.1 Malignant neoplasm of right ureter (principal)
CPT/HCPCS: 71260; 74177

== ENCOUNTER 2018-10-05 19:24 | Emergency (ER) | payer MEDICARE ==
[2018-10-05] MEDS ORDERED: ONDANSETRON HCL INJ/PF 4 MG/2 ML SDV IV ONE (19:32)
[2018-10-05] MEDS ORDERED: RINGERS SOLUTION,LACTATED 500 ML IV ONE (19:32)
--- NOTE | 2018-10-05 19:34 | ER Document Report ---
ED General - General Stated Complaint: ABDOMINAL PAIN,VOMITING Time Seen by Provider: 10/05/18 19:30 Cannot obtain history due to: Uncooperative Notes: Patient is a 77-year-old female with a past medical history of hypertension, renal cancer currently on chemotherapy, presents with complaints of nausea, vomiting, cough, headache and abdominal pain. Patient is a poor historian. History as provided by the patient and EMS combined is that symptoms started several hours prior to arrival and have been worsening since onset. Nothing improves or worsens her symptoms. Patient states this feels similar to when she has had side effects after having chemotherapy in the past. Last dose of chemotherapy was less than 48 hours ago. Has not contacted her general physician or oncologist regarding today's concerns. At the time of my evaluation she denies any focal abdominal pain. She states that she feels "bad". TRAVEL OUTSIDE OF THE [place] IN LAST 30 DAYS: No - Related Data Allergies/Adverse Reactions: No Known Allergies Allergy (Verified 03/02/18 14:13) Past Medical History - General Information source: Patient, Emergency Med Personnel Cannot obtain history due to: Uncooperative - Social History Smoking Status: Never Smoker Frequency of alcohol use: None Drug Abuse: None Lives with: Family Family History: Reviewed & Not Pertinent - Past Medical History Cardiac Medical History: Reports: Hx Hypercholesterolemia, Hx Hypertension, Hx Peripheral Vascular Disease Denies: Hx Coronary Artery Disease, Hx Heart Attack Pulmonary Medical History: Reports: Hx Bronchitis Denies: Hx Asthma, Hx COPD, Hx Pneumonia Neurological Medical History: Denies: Hx Cerebrovascular Accident, Hx Seizures Endocrine Medical History: Reports: Hx Diabetes Mellitus Type 2 Renal/ Medical History: Denies: Hx End Stage Renal Disease, Hx Peritoneal Dialysis, Hx Renal Insufficiency GI Medical History: Reports: Hx Gastroesophageal Reflux Disease Musculoskeletal Medical History: Reports Hx Arthritis - GENERALIZED Past Surgical History: Reports: Hx Cholecystectomy, Hx Genitourinary Surgery - bladder lift, Hx Hysterectomy, Hx Tonsillectomy, Hx Vascular Surgery - Immunizations Hx Diphtheria, Pertussis, Tetanus Vaccination: Yes Hx Pneumococcal Vaccination: 10/24/17 Review of Systems - Review of Systems Notes: Constitutional: Negative for fever. HENT: Negative for sore throat. Eyes: Negative for visual changes. Cardiovascular: Negative for chest pain. Respiratory: Negative for shortness of breath. Gastrointestinal: Positive for abdominal pain and vomiting Genitourinary: Negative for dysuria. Musculoskeletal: Negative for back pain. Skin: Negative for rash. Neurological: Positive for headache 10 point ROS negative except as marked above and in HPI. Physical Exam - Vital signs Vitals: Resp Pulse Ox 17 97 10/05/18 19:31 10/05/18 19:31 Interpretation: Normal Notes: PHYSICAL EXAMINATION: GENERAL: Frail, elderly in appearance but in no acute distress HEAD: Atraumatic, normocephalic. EYES: Pupils equal round and reactive to light, extraocular movements intact, sclera anicteric, conjunctiva are normal. ENT: nares patent, oropharynx clear without exudates. Moderately dry mucous membranes. NECK: Normal range of motion, supple without lymphadenopathy LUNGS: Breath sounds clear to auscultation bilaterally and equal. Scattered rhonchi at the bases bilaterally HEART: Regular rate and rhythm without murmurs ABDOMEN: Soft, nontender, normoactive bowel sounds. No guarding, no rebound. No masses appreciated. EXTREMITIES: Normal range of motion, no pitting or edema. No cyanosis. NEUROLOGICAL: No focal neurological deficits. Moves all extremities s pontaneously and on command. PSYCH: Somewhat lethargic, responds to questions appropriately however SKIN: Warm, Dry, normal turgor, no rashes or lesions noted. Course - Re-evaluation Re-evalutation: 10/05/18 19:33 Patient presents with complaints of nausea, vomiting, headache, generalized abdominal discomfort as well as cough. She is actively receiving chemotherapy, last dose was less than 48 hours ago for a known history of kidney malignancy. She appears frail, chronically ill but in no acute distress. Initial vitals blas w mild hypertension otherwise unremarkable. Physical examination notable only for a persistent, nonproductive cough as well as scattered rales at the bases bilaterally. Given patient's extensive medical history, advanced age, will proceed with a broad workup of blood work, urinalysis, chest x-ray and CT scan of the abdomen pelvis with IV contrast. 10/05/18 23:18 Labs, CT scan of the abdomen pelvis, chest x-ray all globally unremarkable. Patient has tolerated oral intake without difficulty. States she overall feels much better. Suspect that her presentation is secondary to side effect of c hemotherapy and patient and family likewise agree. At this time will discharge with return precautions and follow-up recommendations. Verbal discharge instructions given a the bedside and opportunity for questions given. Medication warnings reviewed. Patient is in agreement with this plan and has verbalized understanding of return precautions and the need for primary care follow-up in the next 24-72 hours. - Vital Signs Vital signs: Temp Pulse Resp BP Pulse Ox 97.8 F 14 118/56 L 94 10/05/18 19:35 10/05/18 21:01 10/05/18 21:01 10/05/18 21:01 - Laboratory Result Diagrams: 10/05/18 20:02 10/05/18 20:02 Laboratory results interpreted by me: 10/05/18 10/05/18 10/05/18 20:02 20:02 20:25 WBC 3.5 L RBC 2.59 L Hgb 8.5 L Hct 24.7 L RDW 18.0 H Plt Count 131 L Sodium 135.5 L BUN 22 H Est GFR ( Amer) 53 L Est GFR (Non-Af Amer) 43 L Urine Protein 100 H Urine Blood MODERATE H Ur Leukocyte Esterase SMALL H - Diagnostic Test Radiology reviewed: Image reviewed, Reports reviewed Radiology results interpreted by me: 10/05/18 20:44 Chest x-ray: No acute infiltrate or pneumothorax - EKG Interpretation by Me Additional EKG results interpreted by me: 10/05/18 20:44 Sinus rhythm, rate 64. No ST elevations or depressions. QTC 442. Discharge - Discharge Clinical Impression: Abdominal wall hernia Chemotherapy adverse reaction Qualifiers: Encounter type: initial encounter Qualified Code(s): T45.1X5A - Adverse effect of antineoplastic and immunosuppressive drugs, initial encounter Nausea and vomiting Qualifiers: Vomiting type: unspecified Vomiting Intractability: non-intractable Qualified Code(s): R11.2 - Nausea with vomiting, unspecified Kidney malignant neoplasm Qualifiers: Laterality: unspecified laterality Qualified Code(s): C64.9 - Malignant neoplasm of unspecified kidney, except renal pelvis Condition: Stable Additional Instructions: Your labs, CT scan, chest x-ray, flu testing are all reassuring today. Your symptoms are likely secondary to recent chemotherapy infusion. Please follow-up very closely with your hematology oncology doctor as well as your general physician. Return if you become unable to tolerate fluids for greater than 12 hours, have worsening of your pain, develop a fever greater than 101 F, pass out, or have any other symptoms that are worrisome to you. Referrals: ALEC PRATHER MD [Primary Care Provider] - Follow up as needed
[2018-10-05 20:13] LABS: ABSOLUTE EOSINOPHILS # (AUTO) 0.1 10^3/uL (0.0-0.6); ABSOLUTE LYMPHOCYTES (AUTO) 0.8 10^3/uL (0.5-4.7); ABSOLUTE MONOCYTES (AUTO) 0.1 10^3/uL (0.1-1.4); ABSOLUTE NEUT (AUTO) 2.5 10^3/uL (1.7-8.2); BASOPHILS % (AUTO) 0.7 % (0-2); HEMATOCRIT 24.7 % (36.0-47.0); HEMOGLOBIN 8.5 g/dL (12.0-15.5); LYMPHOCYTES % (AUTO) 21.7 % (13-45); MEAN CORPUSCULAR HEMOGLOBIN 32.6 pg (27.0-33.4); MEAN CORPUSCULAR HGB CONC 34.2 g/dL (32.0-36.0); MEAN CORPUSCULAR VOLUME 95 fl (80-97); MONOCYTES % (AUTO) 4.1 % (3-13); PLATELET COUNT 131 10^3/uL (150-450); RED BLOOD COUNT 2.59 10^6/uL (3.72-5.28); SEGMENTED NEUTROPHILS % (AUTO) 70.5 % (42-78); TOTAL CELLS COUNTED % (AUTO) 100 %; WHITE BLOOD COUNT 3.5 10^3/uL (4.0-10.5)
--- NOTE | 2018-10-05 20:29 | RADIOLOGY REPORT (SQ) ---
EXAM DESCRIPTION: CHEST SINGLE VIEW COMPLETED DATE/TIME: 10/05/2018 8:20 pm REASON FOR STUDY: cough COMPARISON: 07/17/2015 EXAM PARAMETERS: NUMBER OF VIEWS: One view. TECHNIQUE: Single frontal radiographic view of the chest acquired. RADIATION DOSE: NA LIMITATIONS: None. FINDINGS: LUNGS AND PLEURA: No opacities, masses or pneumothorax. No pleural effusion. MEDIASTINUM AND HILAR STRUCTURES: No masses. Contour normal. HEART AND VASCULAR STRUCTURES: Heart normal in size. Normal vasculature. BONES: No acute findings. HARDWARE: Right-sided chest port tip terminates in the expected region of the SVC. OTHER: No other significant finding. IMPRESSION: NO ACUTE RADIOGRAPHIC FINDING IN THE CHEST. TECHNICAL DOCUMENTATION: JOB ID: [id number] [employer]- All Rights Reserved Reading location - IP/workstation name: [email or web address]
--- NOTE | 2018-10-05 20:37 | EKG REPORT ---
SEVERITY:- ABNORMAL ECG - SINUS RHYTHM NONSPECIFIC T ABNORMALITIES, INFERIOR LEADS : Confirmed by: Todd Lackey MD 05-Oct-2018 20:36:13
[2018-10-05 20:47] LABS: APPEARANCE,URINE CLEAR; BILIRUBIN,URINE NEGATIVE (NEGATIVE); COLOR,URINE YELLOW; GLUCOSE, URINE NEGATIVE (NEGATIVE); KETONES,URINE NEGATIVE (NEGATIVE); LEUKOCYTE ESTERASE,URINE SMALL (NEGATIVE); NITRITE,URINE NEGATIVE (NEGATIVE); PROTEIN,URINE 100 mg/dL (NEGATIVE); URINE SPECIFIC GRAVITY 1.012; UROBILINOGEN,URINE NEGATIVE mg/dL (<2.0)
[2018-10-05 20:55] LABS: A TYPE INFLUENZA AG NEGATIVE (NEGATIVE); B INFLUENZA AG NEGATIVE (NEGATIVE)
[2018-10-05 21:01] LABS: ALANINE AMINOTRANSFERASE 32 U/L (9-52); ALBUMIN 3.7 g/dL (3.5-5.0); ALKALINE PHOSPHATASE 93 U/L (38-126); ANION GAP 5 (5-19); ASPARTATE AMINO TRANSFERASE 33 U/L (14-36); BILIRUBIN,DIRECT 0.1 mg/dL (0.0-0.4); BILIRUBIN,TOTAL 0.4 mg/dL (0.2-1.3); BLOOD UREA NITROGEN 22 mg/dL (7-20); CALCIUM 8.8 mg/dL (8.4-10.2); CARBON DIOXIDE 25 mmol/L (22-30); CHLORIDE 106 mmol/L (98-107); GLUCOSE 104 mg/dL (75-110); POTASSIUM 4.1 mmol/L (3.6-5.0); SODIUM 135.5 mmol/L (137-145); TOTAL PROTEIN 6.6 g/dL (6.3-8.2)
[2018-10-05] MEDS ORDERED: ONDANSETRON HCL INJ/PF 4 MG/2 ML SDV ONE (22:21)
--- NOTE | 2018-10-05 23:04 | RADIOLOGY REPORT (SQ) ---
EXAM DESCRIPTION: CT ABDOMEN PELVIS WITH IV CONTRAST COMPLETED DATE/TME: 10/05/2018 19:33 CLINICAL HISTORY: 77 years, Female, abdominal pain, vomiting COMPARISON: 09/09/2018 CT TECHNIQUE: 355 Images stored on PACS. All CT scanners at this facility use dose modulation, iterative reconstruction, and/or weight based dosing when appropriate to reduce radiation dose to as low as reasonably achievable (ALARA). [facility]: Dose Right [facility]: CareDose [facility]: Dose Right [facility]: Teradose 4D [facility]: [employer] LIMITATIONS: None. FINDINGS: Limited evaluation of the lung bases is unremarkable. Osseous structures are grossly intact. Fatty infiltrative change to the liver. Subcentimeter hypodensities within the liver, also present previously likely reflecting hemangiomas or cysts. The spleen, adrenal glands, pancreas are unremarkable. Atrophic appearance to the left kidney. Nonobstructing right renal calculi are noted. Status post cholecystectomy. Anterior abdominal wall hernia containing a loop of colon. No gross evidence for bowel obstruction at this time. Right ureteral stent noted. Atheromatous change of the abdominal aorta with infrarenal abdominal aortic aneurysm. Significant mural thrombus formation however this appears stable compared with the prior exam. Maximal diameter is 2.9 x 3.2 cm. No free air or free fluid. Previously described mass in the superior pole of the right kidney the poorly defined mass which extends into the right renal pelvis measures approximately 3.7 x 3.6 x 3.6 cm. Appendix not well seen. No pericecal inflammation.. IMPRESSION: No progressive abnormality in the abdomen or pelvis. Poorly defined mass in the superior pole of the right kidney with nonobstructing right renal calculi. The mass extends into the right renal pelvis, also described previously. Right ureteral stent in place. Atrophic appearance to the left kidney. Stable infrarenal abdominal aortic aneurysm. Anterior abdominal wall hernia containing a portion of colon with no gross evidence for bowel obstruction. TECHNICAL DOCUMENTATION: Quality ID # [id number]: Final reports with documentation of one or more dose reduction techniques (e.g., Automated exposure control, adjustment of the mA and/or kV according to patient size, use of iterative reconstruction technique) copyright 2010 [employer]- All Rights Reserved
[2018-10-06 00:01] VITALS: BP 132/61
== END 2018-10-06 00:02 | disposition home or self-care (01) ==
LOC: ER 19:24
DX: K43.9 Ventral hernia without obstruction or gangrene (principal); T45.1X5A Adverse effect of antineoplastic and immunosuppressive drugs, initial encounter; R11.2 Nausea with vomiting, unspecified; C64.9 Malignant neoplasm of unspecified kidney, except renal pelvis; R51 Headache; X58.XXXA Exposure to other specified factors, initial encounter; E78.00 Pure hypercholesterolemia, unspecified; I10 Essential (primary) hypertension; E11.9 Type 2 diabetes mellitus without complications; Z90.49 Acquired absence of other specified parts of digestive tract; Z90.710 Acquired absence of both cervix and uterus
CPT/HCPCS: 93005; 99285; 96361; 51701; 96374; 36415; 83605; 85025; 80053; 81001; 84484; 87804; 71045; 74177; 93010; J2405; J7120

== ENCOUNTER 2018-11-06 06:00 | Emergency (ER) | payer MEDICARE ==
[2018-11-06 07:17] LABS: HEMATOCRIT 30.7 % (36.0-47.0); HEMOGLOBIN 10.4 g/dL (12.0-15.5); MEAN CORPUSCULAR HEMOGLOBIN 32.2 pg (27.0-33.4); MEAN CORPUSCULAR VOLUME 95 fl (80-97); PLATELET COUNT 181 10^3/uL (150-450); RED BLOOD COUNT 3.23 10^6/uL (3.72-5.28); WHITE BLOOD COUNT 11.2 10^3/uL (4.0-10.5)
[2018-11-06 07:22] LABS: ALANINE AMINOTRANSFERASE 24 U/L (9-52); ALBUMIN 4.1 g/dL (3.5-5.0); ALKALINE PHOSPHATASE 109 U/L (38-126); ANION GAP 8 (5-19); ASPARTATE AMINO TRANSFERASE 28 U/L (14-36); BILIRUBIN,DIRECT 0.3 mg/dL (0.0-0.4); BILIRUBIN,TOTAL 0.8 mg/dL (0.2-1.3); BLOOD UREA NITROGEN 22 mg/dL (7-20); CALCIUM 9.7 mg/dL (8.4-10.2); CARBON DIOXIDE 28 mmol/L (22-30); CHLORIDE 103 mmol/L (98-107); GLUCOSE 93 mg/dL (75-110); POTASSIUM 4.8 mmol/L (3.6-5.0); SODIUM 138.7 mmol/L (137-145); TOTAL PROTEIN 7.5 g/dL (6.3-8.2)
[2018-11-06] MEDS ORDERED: IPRATROPIUM/ALBUTEROL 0.5-2.5 MG/3 ML AMPUL NEB ONE (07:24)
[2018-11-06] MEDS ORDERED: MAGNESIUM SULFATE/D5W 1 GM/100 ML RTUPB IV ONE (07:24)
[2018-11-06] MEDS ORDERED: NORMAL SALINE 1000 ML 1,000 ML IV ONE (07:27)
--- NOTE | 2018-11-06 07:36 | ER Document Report ---
ED General - General Chief Complaint: Shortness Of Breath Stated Complaint: SHORTNESS OF BREATH Time Seen by Provider: 11/06/18 06:19 Primary Care Provider: DENIS SALGADO MD [Primary Care Provider] - Follow up as needed TRAVEL OUTSIDE OF THE [place] IN LAST 30 DAYS: No - HPI Notes: Patient is a 78-year-old female with extensive medical history including bladder cancer, solitary kidney, hypertension, COPD with continued tobacco abuse, diabetes who presents to the emergency department for several complaints. Patient's oncologist is Dr. Hernandez and she last had chemo 6 days ago. Patient states that she has left lower back pain does not radiate. Denies any spinal abscess history of IV drug abuse. She is still urinating and having normal bowel movements. Patient states that she has noticed right hand weakness and tingling chronically, but started to be associated with more soreness. Patient has also had nasal congestion and discharge over the last several days with associated dry nonproductive cough and associated wheeze. Patient states that she has felt short of breath because of this, but does not have any chest pain. Patient states that her back and her breathing prompted her to come the emergency department today. Patient states that she was evaluated by oncology a couple days ago and she was told that she was wheezing and also had her hand evaluated at that time. No other significant cardiopulmonary medical history. Denies any headache, fever, neck pain, sore throat, chest pain, palpitations, syncope, abdominal pain, nausea/vomiting/diarrhea, urinary retention, dysuria, loss of control of bowel or bladder, numbness/tingling, saddle anesthesia, muscle paralysis/weakness, or rash. - Related Data Allergies/Adverse Reactions: No Known Allergies Allergy (Verified 11/06/18 06:01) Past Medical History - Social History Smoking Status: Current Every Day Smoker Family History: Reviewed & Not Pertinent Patient has suicidal ideation: No Patient has homicidal ideation: No - Past Medical History Cardiac Medical History: Reports: Hx Hypercholesterolemia, Hx Hypertension, Hx Peripheral Vascular Disease Denies: Hx Coronary Artery Disease, Hx Heart Attack Pulmonary Medical History: Reports: Hx Bronchitis, Hx COPD Denies: Hx Asthma, Hx Pneumonia Neurological Medical History: Denies: Hx Cerebrovascular Accident, Hx Seizures Endocrine Medical History: Reports: Hx Diabetes Mellitus Type 2 Renal/ Medical History: Denies: Hx End Stage Renal Disease, Hx Peritoneal Dialysis, Hx Renal Insufficiency GI Medical History: Reports: Hx Gastroesophageal Reflux Disease Musculoskeletal Medical History: Reports Hx Arthritis Psychiatric Medical History: Reports: Hx Depression Past Surgical History: Reports: Hx Cholecystectomy, Hx Genitourinary Surgery - bladder lift, Hx Hysterectomy, Hx Tonsillectomy, Hx Vascular Surgery - Immunizations Hx Diphtheria, Pertussis, Tetanus Vaccination: Yes Hx Pneumococcal Vaccination: 10/24/17 Review of Systems - Review of Systems -: Yes All other systems reviewed and negative Physical Exam - Vital signs Vitals: Temp Pulse BP Pulse Ox 98.7 F 71 146/59 H 92 11/06/18 06:07 11/06/18 06:07 11/06/18 06:07 11/06/18 06:07 - Notes Notes: PHYSICAL EXAMINATION: GENERAL: Well-appearing, well-nourished and in no acute distress. A&Ox4. Answers questions appropriately. Moves comfortably w/o notable distress HEAD: Atraumatic, normocephalic. EYES: Pupils equal round and reactive to light, extraocular movements intact, sclera anicteric, conjunctiva are normal. ENT: EAC clear b/l. TM's intact b/l without erythema, fluid, or perforation. Nares patent and with clear discharge. oropharynx no erythema without exudates. No tonsilar hypertrophy without erythema or exudate. No palatine shift. Uvula midline. No tongue protrusion. No drooling, hoarseness, or airway compromise. Moist mucous membranes. No sinus tenderness. NECK: Normal range of motion, supple without lymphadenopathy. No rigidity/meningismus. LUNGS: expiratory wheezing noted b/l. no retractions. HEART: Regular rate and rhythm without murmurs, rubs, gallops. ABDOMEN: Soft, nontender, nondistended abdomen. No guarding, no rebound. No masses appreciated. Normal bowel sounds present. No CVA tenderness bilaterally. No pulsatile mass Musculoskeletal: LE's b/l: FROM to passive/active. Strength 5+/5. No deficits noted. No bony tenderness of extremities. Back: FROM to passive/active. Strength 5+/5. No vertebral point tenderness, stepoffs, or deformities. No other bony tenderness, erythema, swelling, or ecchymosis. SLR negative b/l. + mild tenderness to the Left L-paraspinal mm. Mild spasming. No SI jt tenderness. No foot drop Extremities: No cyanosis, clubbing, or edema b/l. Peripheral pulses 2+. Capillary refill less than 2 seconds. NEUROLOGICAL: Normal speech, normal gait. Normal sensory, motor exams. Reflexes 2+ b/l. PSYCH: Normal mood, normal affect. SKIN: Warm, Dry, normal turgor, no rashes or lesions noted. Course - Re-evaluation Re-evalutation: 11/06/18 11:13 Patient is an afebrile, well-hydrated 78-year-old female who presents to the ED with acute URI/COPD exacerbation, low back pain ([id number] by palpation), and rt wrist pain (suspect carpal tunnel). She does have noted increase of her AAA from 3.2-3.6 over the last month, but no abd pain associated. She has an extensive medical history. I reviewed with Dr. Hernandez who recommended just an US and not CTA to further evaluate. He also states that her CBC is appropriate with the wbc shots she has been receiving. Vitals are acceptable without any significant tachycardia, tachypnea, or hypoxia. PE is otherwise unremarkable. Patient is nontoxic-appearing and is tolerating p.o. without any difficulties. Pt is currently asymptomatic and is feeling much better after magnesium, breathing treatments, and fluids. Steroids were withheld due to her current medical condition(s). CBC, CMP, EKG/cardiac enzymes 2, chest x-ray are all unremarkable for any acute pathology. Patient does not have any chest pain, dyspnea, or shortness of breath. She has not had any CP complaint from the beginning and has had URI/wheezing for the past few days. Patient's presentation and symptomatology creates low suspicion for cauda equina, disc herniation causing severe spinal stenosis, spinal abscess, discitis, ACS, PE, pneumothorax, pericarditis, dissection, respiratory compromise, severe dehydration, sepsis, meningitis, or other systemic emergent condition at this time. Patient is aware that this condition can change from initial presentation and she needs to monitor symptoms closely and seek medical attention for any acute changes. Pt is feeling better and would like to go home. She has an inhaler at home. Recommend conservative measures for symp toms. Recheck with your PCM in 2-3 days. Consider consult with Cardiology. Return to the ED with any worsening/concerning symptoms otherwise as reviewed in discharge. Patient is in agreement. - Vital Signs Vital signs: Temp Pulse Resp BP Pulse Ox 98.7 F 71 18 144/73 H 93 11/06/18 06:07 11/06/18 06:07 11/06/18 10:01 11/06/18 10:01 11/06/18 10:01 - Laboratory Result Diagrams: 11/06/18 06:30 11/06/18 06:30 Laboratory results interpreted by me: 11/06/18 11/06/18 11/06/18 06:30 06:30 06:30 WBC 11.2 H RBC 3.23 L Hgb 10.4 L Hct 30.7 L RDW 18.0 H Band Neutrophils % 10 H Lymphocytes % (Manual) 10 L Monocytes % (Manual) 17 H Abs Monocytes (Manual) 1.9 H BUN 22 H Creatinine 1.51 H Est GFR ( Amer) 40 L Est GFR (Non-Af Amer) 33 L Urine Protein 100 H Urine Blood LARGE H Ur Leukocyte Esterase TRACE H Discharge - Discharge Clinical Impression: COPD exacerbation, Carpal tunnel syndrome, right, Right hand pain, Acute URI Low back pain Qualifiers: Chronicity: acute Back pain laterality: right Sciatica presence: without sciatica Qualified Code(s): M54.5 - Low back pain Condition: Stable Disposition: HOME, SELF-CARE Additional Instructions: You need to have your aneurysm closely monitored* Maintain adequate fluid intake Use your inhalers regularly tylenol as needed over the counter cold medication as needed for symptoms Humidified air may help Wash your hands regularly Wear a mask when coughing F/u: with your PCM in 3-5 days for a recheck Call your oncologist today to schedule a recheck in the next 1-2 days. Return to the ED with any fever, worsening pain, chest pain, palpitations, syncope, worsening FARFAN, neck pain/stiffness, shortness of breath, wheezing, drooling, trouble swallowing/breathing, abdominal pain, n/v/d, rash, or worsening/concerning symptoms otherwise. Prescriptions: Lidocaine [Lidoderm 5% (700 mg) Transdermal Patch] 1 patch TP DAILY #10 adh..patch Forms: Elevated Blood Pressure, Smoking Cessation Education Referrals: DENIS SALGADO MD [Primary Care Provider] - Follow up tomorrow
--- NOTE | 2018-11-06 07:48 | RADIOLOGY REPORT (SQ) ---
EXAM DESCRIPTION: XR CHEST 1 VIEW COMPLETED DATE/TME: 11/06/2018 07:07 CLINICAL HISTORY: 78 years Female, sob COMPARISON: 07/17/15, 10/05/18 NUMBER OF VIEWS/TECHNIQUE: 1/AP FINDINGS: Adequate lung volume, mild chronic interstitial markings, normal cardiac silhouette, and intact bony thorax.Adequate appearing right jugular central line. Upper abdominal clips. IMPRESSION: No acute cardiopulmonary findings.
--- NOTE | 2018-11-06 07:58 | RADIOLOGY REPORT (SQ) ---
EXAM DESCRIPTION: XR LUMBAR SPINE ANTEROPOSTERIOR, LATERAL, AND OBLIQUES COMPLETED DATE/TME: 11/06/2018 07:24 CLINICAL HISTORY: 78 years Female, left low back pain, bladder CA, chemo last week COMPARISON: CT, 10/05/2018. Findings: Moderate disc desiccation. Right ureteral stent. Right upper abdominal clips. Stent at the upper left paracentral pelvis. Normal alignment and curvature. Vertebral heights are maintained. Extraspinal structures are grossly intact. Abdominal aortic aneurysm measures up to 3.6 cm in anteroposterior diameter increased compared with CT determined anteroposterior diameter 3.2 cm on prior exam from October 05, 2018. IMPRESSION: 1. Possible increased infrarenal abdominal aortic aneurysm measures 3.6 cm in anteroposterior diameter as estimated radiographically. Prior CT-based anteroposterior diameter was 3.2 cm on exam from one month ago. Recommend current contrast CTA of the abdominal aorta for this patient with described back pain. 2. No acute findings of XR LUMBAR SPINE ANTEROPOSTERIOR, LATERAL, AND OBLIQUES. .
[2018-11-06 08:09] LABS: ABSOLUTE LYMPHOCYTES# (MANUAL) 1.2 10^3/uL (0.5-4.7); ABSOLUTE MONOCYTES # (MANUAL) 1.9 10^3/uL (0.1-1.4); ABSOLUTE NEUTROPHILS# (MANUAL) 8.1 10^3/uL (1.7-8.2); BAND NEUTROPHILS % (MANUAL) 10 % (3-5); BASOPHILS % (MANUAL) 0 % (0-2); EOSINOPHILS % (MANUAL) 0 % (0-6); LYMPHOCYTES % (MANUAL) 10 % (13-45); MONOCYTES % (MANUAL) 17 % (3-13); SEGMENTED NEUTROPHILS % (MAN) 62 % (42-78); TOTAL CELLS COUNTED 100
[2018-11-06 08:10] LABS: ANISOCYTOSIS 2+; BURR CELLS SLIGHT; POIKILOCYTOSIS 1+
[2018-11-06 08:11] LABS: OVALOCYTES SLIGHT; PLATELET COMMENT ADEQUATE; SCHISTOCYTES SLIGHT; TEAR DROP CELLS 1+
[2018-11-06] MEDS ORDERED: MORPHINE SULFATE 10 MG/ML INJ IV ONE (08:17)
[2018-11-06] MEDS ORDERED: LIDOCAINE 5% (700 MG) TRANSDERMAL ADH..PATCH TP ONE (08:37)
[2018-11-06] MEDS ORDERED: ALBUTEROL SULFATE 0.083% NEB 2.5 MG/3 ML AMPUL NEB ONE (08:54)
[2018-11-06 09:09] LABS: APPEARANCE,URINE CLOUDY; BILIRUBIN,URINE NEGATIVE (NEGATIVE); COLOR,URINE YELLOW; GLUCOSE, URINE NEGATIVE (NEGATIVE); KETONES,URINE NEGATIVE (NEGATIVE); LEUKOCYTE ESTERASE,URINE TRACE (NEGATIVE); NITRITE,URINE NEGATIVE (NEGATIVE); PROTEIN,URINE 100 mg/dL (NEGATIVE); URINE SPECIFIC GRAVITY 1.013; UROBILINOGEN,URINE NEGATIVE mg/dL (<2.0)
--- NOTE | 2018-11-06 09:52 | RADIOLOGY REPORT (SQ) ---
EXAM DESCRIPTION: U/S ABD AORTIC SCREENING COMPLETED DATE/TIME: 11/06/2018 9:39 am REASON FOR STUDY: inc size of AAA from previous study COMPARISON: Lumbar spine plain films 11/06/2018 CT abdomen pelvis 10/05/2018, 09/09/2018, 03/02/2018 TECHNIQUE: Static and dynamic grayscale images acquired of the aorta and stored on PACs. Selected co yolanda Doppler and spectral images recorded. LIMITATIONS: Proximal common iliac arteries not well seen due to pelvic bowel gas FINDINGS: AORTIC CALIBER MAXIMAL PROXIMAL: 2.6 x 2.4 cm. MID: 2.3 x 2.2 cm. DISTAL: 3.6 x 3.5 cm. (Was 3.4 x 3 on 10/05/2018, 3.4 x 3 on 09/09/2018 CT exams). ILIAC DIAMETER Not visualized due to pelvic bowel gas OTHER: No other significant finding. IMPRESSION: 3.6 x 3.5 cm infrarenal abdominal aortic aneurysm on ultrasound exam today COMMENT: Aortic aneurysm imaging followup: 3.5-3.9 cm Every 12 months *Based upon the Society for Vascular Surgery Guidelines: J Vasc Surg. 2009 Oct;50(4 Suppl):S2-49 *For aortas of maximum diameter of 2.6-2.9 cm meeting the criteria for AAA (?1.5 x proximal normal se gment) TECHNICAL DOCUMENTATION: JOB ID: [id number] [employer]- All Rights Reserved Reading location - IP/workstation name: [email or web address]
[2018-11-06 10:24] VITALS: BP 144/73
--- NOTE | 2018-11-06 10:45 | EKG REPORT ---
SEVERITY:- ABNORMAL ECG - SINUS RHYTHM NONSPECIFIC T ABNORMALITIES, INFERIOR LEADS : Confirmed by: Candida Merchant MD 06-Nov-2018 10:44:47
== END 2018-11-06 12:01 | disposition home or self-care (01) ==
LOC: ER 06:00
DX: J44.1 Chronic obstructive pulmonary disease with (acute) exacerbation (principal); G56.01 Carpal tunnel syndrome, right upper limb; J06.9 Acute upper respiratory infection, unspecified; M54.5 Low back pain; R25.2 Cramp and spasm; I71.4 Abdominal aortic aneurysm, without rupture; E11.51 Type 2 diabetes mellitus with diabetic peripheral angiopathy without gangrene; I10 Essential (primary) hypertension; R09.81 Nasal congestion; R05 Cough; R06.02 Shortness of breath; C67.9 Malignant neoplasm of bladder, unspecified; Z79.899 Other long term (current) drug therapy
CPT/HCPCS: 93005; 94640 ×2; 99284; 96361; 96375; 96365; 96366; 36415; 87086; 85025; 80053; 81001; 84484; 71045; 72110; 76706; 93010; J2270; J3475; J7030; A9270 ×2; J7620

== ENCOUNTER → 2018-11-12 | Outpatient (CLI) | payer MEDICARE ==
--- NOTE | 2018-11-12 12:41 | RADIOLOGY REPORT (SQ) ---
EXAM DESCRIPTION: C SP 4 OR 5 VIEWS COMPLETED DATE/TIME: 11/12/2018 12:13 pm REASON FOR STUDY: RADICULOPATHY, CERVICAL REGION M54.12 RADICULOPATHY, CERVICAL REGION COMPARISON: None. NUMBER OF VIEWS: Five views. TECHNIQUE: AP, lateral, obliques and odontoid radiographic images acquired of the cervical spine. LIMITATIONS: None. FINDINGS: MINERALIZATION: Normal. ALIGNMENT: There is anterolisthesis of C6 on C7. VERTEBRAE: Vertebral bodies of normal height. DISCS: Disc spaces are narrowed from C3-C6 with anterior and posterior osteophytes. FORAMINA: No osteophytes or foraminal narrowing. LATERAL AND POSTERIOR ELEMENTS: Hypertrophic facet changes are present from C4 to C7, left more than right. HARDWARE: None in the spine. SOFT TISSUES: No masses or calcifications. Lung apices clear. OTHER: No other significant finding. IMPRESSION: Anterolisthesis of C6 on C7. Degenerative disc disease. Spondylosis. Facet arthropath y. TECHNICAL DOCUMENTATION: JOB ID: [id number] [employer]- All Rights Reserved Reading location - IP/workstation name: [email or web address]
== END ==
LOC: OD 11:43
PROVIDERS: ATTEND Internal Medicine
DX: M54.12 Radiculopathy, cervical region (principal)
CPT/HCPCS: 72050

== ENCOUNTER → 2018-11-24 | Outpatient (CLI) | payer BC, MEDICARE ==
--- NOTE | 2018-11-24 11:40 | RADIOLOGY REPORT (SQ) ---
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 Images reviewed with lung, soft tissue and bone windows. Reconstructed coronal a nd sagittal MPR images reviewed. All images stored on PACS. CT scan of the abdomen and pelvis performed with intravenous and without oral contrastusing helical s regino technique with dynamic intravenous contrast injection. Images reviewed with lung, soft tissu e and bone windows. Reconstructed coronal and sagittal MPR images reviewed. Delayed images for eval uation of the urinary system also acquired and evaluated. All images stored on PACS. All CT scanners at this facility use dose modulation, iterative reconstruction, and/or weight based d osing when appropriate to reduce radiation dose to as low as reasonably achievable (ALARA). [facility]: Dose Right [facility]: CareDose [facility]: Dose Right [facility]: Teradose 4D [facility]: Smart [employer] RADIATION DOSE: CT Rad equipment meets quality standard of care and radiation dose reduction techniq ues were employed. CTDIvol: 4.4 - 4.5 mGy. DLP: 586 mGy-cm. . LIMITATIONS: None. FINDINGS: CHEST: LUNGS AND PLEURA: 6 to 7 mm nodule is adjacent to a small bulla or bleb in the periphery of the right upper lobe axial image 44 unchanged from 09/09/2018. Lungs are hyperinflated and hyperlucent from o bstructive disease. No acute infiltrates. No pleural effusion. No pneumothorax. HILAR AND MEDIASTINAL STRUCTURES: No identified masses or abnormal nodes. HEART AND VASCULAR STRUCTURES: No aneurysm or dissection. No central pulmonary emboli. No pericardi al effusion. Very heavily calcified coronary artery HARDWARE: Right-sided permanent central line tip superior vena cava THYROID AND OTHER SOFT TISSUES: No masses. No adenopathy. BONES: No significant finding. OTHER: No other significant finding. ABDOMEN AND PELVIS: LIVER: Normal size. Scattered tiny hepatic cysts. No dilated ducts. SPLEEN: Normal size. No focal lesions. PANCREAS: No masses. No significant calcifications. No adjacent inflammation or peripancreatic fluid collections. Pancreatic duct not dilated. GALLBLADDER: Surgically absent ADRENAL GLANDS: No significant masses or asymmetry. RIGHT KIDNEY AND URETER: Solid mass in the right upper pole kidney is 4.4 x 4.2 x 3.8 cm in size (was about 3.7 x 3.6 cm in size on 09/09/2018. Right-sided double-J stent in good positioning, no right hydronephrosis. Calcifications at the right hilum could either represent intrarenal nonobstructive s tones or arterial vascular calcifications. LEFT KIDNEY AND URETER: Diffuse atrophy, with cortical thinning. Left kidney 6.5 cm in length. No g ross masses or cysts. Calcifications at the left renal hilum are likely arterial vascular AORTA AND VESSELS: Heavily calcified abdominal aorta with 3.3 x 3.2 cm infrarenal abdominal aorta. R ind of rightward mural thrombus is unchanged from previous studies. Very heavily calcified visceral artery origins with heavy burden of atherosclerotic disease and multiple tandem stenosis in the SMA b est shown on sagittal reconstruction images 36-39 RETROPERITONEUM: No retroperitoneal adenopathy, hemorrhage or masses. BOWEL AND PERITONEAL CAVITY: No CT evidence of bowel obstruction or free intraperitoneal air or fluid . APPENDIX: Not identified. No right lower quadrant inflammatory change ABDOMINAL WALL: Midline umbilical hernia containing nonobstructed transverse colon and nonobstructed small bowel PELVIS: No mass or free fluid. Right-sided double-J stent in the urinary bladder. BONES: No significant or acute findings. OTHER: No other significant finding. IMPRESSION: Stable 6 to 7 mm nodule in the right upper lobe likely postinflammatory. Slight increase in size of the right upper pole malignant renal mass, 4.4 x 4.2 cm in size Very heavily calcified abdominal aorta and major visceral branches Umbilical hernia containing nonobstructed transverse colon and small bowel NORMAL CT OF THE ABDOMEN AND PELVIS WITH ORAL AND INTRAVENOUS CONTRAST. TECHNICAL DOCUMENTATION: JOB ID: [id number] Quality ID # [id number]: Final reports with documentation of one or more dose reduction techniques (e.g., Au tomated exposure control, adjustment of the mA and/or kV according to patient size, use of iterative reconstruction technique) 2010 [employer]- All Rights Reserved Reading location - IP/workstation name: [email or web address]
== END ==
LOC: RAD 09:45
PROVIDERS: ATTEND Physician Assistant Medical
DX: C66.1 Malignant neoplasm of right ureter (principal); K42.9 Umbilical hernia without obstruction or gangrene; R91.1 Solitary pulmonary nodule; K76.89 Other specified diseases of liver
CPT/HCPCS: 71260; 74177; 82565

== ENCOUNTER 2019-02-18 19:01 | Emergency (ER) | payer MEDICARE ==
--- NOTE | 2019-02-18 19:38 | ER Document Report ---
ED Medical Screen (RME) - General Chief Complaint: Abdominal Pain Stated Complaint: ABDOMINAL PAIN Time Seen by Provider: 02/18/19 19:35 Primary Care Provider: ALEC PRATHER MD [Primary Care Provider] - Follow up as needed Mode of Arrival: Wheelchair Information source: Patient, Relative Notes: 78-year-old female presented to ED for complaint of right abdominal pelvic pain. She states she has had pelvic pain and bleeding ever since they put the urinary stent in yesterday. Family member states that she has bladder cancer and they put stents in so that she could get her urine from her kidney to her bladder and be able to void. Patient states she has not been able to void today but while I was interviewing her she states she had to pee and she needed to go right now. Family member was provided with sterile cup and wipes to obtain a urine specimen. Blood and urine will be sent to the lab and patient will be seen by another provider. I have greeted and performed a rapid initial assessment of this patient. A comprehensive ED assessment and evaluation of the patient, analysis of test results and completion of medical decision making process will be conducted by an additional ED providers. Dictation of this chart was performed using voice recognition software; therefore, there may be some unintended grammatical errors. TRAVEL OUTSIDE OF THE [place] IN LAST 30 DAYS: No - Related Data Allergies/Adverse Reactions: No Known Allergies Allergy (Verified 02/18/19 19:04) Past Medical History - Past Medical History Cardiac Medical History: Reports: Hx Hypercholesterolemia, Hx Hypertension, Hx Peripheral Vascular Disease Denies: Hx Coronary Artery Disease, Hx Heart Attack Pulmonary Medical History: Reports: Hx Bronchitis, Hx COPD Denies: Hx Asthma, Hx Pneumonia Neurological Medical History: Denies: Hx Cerebrovascular Accident, Hx Seizures Endocrine Medical History: Reports: Hx Diabetes Mellitus Type 2 Renal/ Medical History: Denies: Hx End Stage Renal Disease, Hx Peritoneal Dialysis, Hx Renal Insufficiency GI Medical History: Reports: Hx Gastroesophageal Reflux Disease Musculoskeltal Medical History: Reports Hx Arthritis Psychiatric Medical History: Reports: Hx Depression Past Surgical History: Reports: Hx Cholecystectomy, Hx Genitourinary Surgery - bladder lift, Hx Hysterectomy, Hx Tonsillectomy, Hx Vascular Surgery - Immunizations Hx Diphtheria, Pertussis, Tetanus Vaccination: Yes History of Influenza Vaccine for 06/2017 - 11/2017 Season: Yes Influenza Administration Date for 06/2017 - 11/2017 Season: 06/23/18 Physical Exam - Vital signs Vitals: Temp Pulse Resp BP Pulse Ox 98.9 F 73 20 190/105 H 95 02/18/19 19:15 02/18/19 19:15 02/18/19 19:15 02/18/19 19:15 02/18/19 19:15 Course - Vital Signs Vital signs: Temp Pulse Resp BP Pulse Ox 98.9 F 73 20 190/105 H 95 02/18/19 19:15 02/18/19 19:15 02/18/19 19:15 02/18/19 19:15 02/18/19 19:15 Doctor's Discharge - Discharge Referrals: ALEC PRATHER MD [Primary Care Provider] - Follow up as needed
[2019-02-18 20:44] LABS: ABSOLUTE BASOPHILS # (AUTO) 0.1 10^3/uL (0.0-0.2); ABSOLUTE LYMPHOCYTES (AUTO) 0.8 10^3/uL (0.5-4.7); ABSOLUTE MONOCYTES (AUTO) 0.7 10^3/uL (0.1-1.4); ABSOLUTE NEUT (AUTO) 5.4 10^3/uL (1.7-8.2); BASOPHILS % (AUTO) 0.8 % (0-2); EOSINOPHILS % (AUTO) 0.1 % (0-6); HEMATOCRIT 41.3 % (36.0-47.0); HEMOGLOBIN 13.6 g/dL (12.0-15.5); LYMPHOCYTES % (AUTO) 11.7 % (13-45); MEAN CORPUSCULAR HEMOGLOBIN 32.1 pg (27.0-33.4); MEAN CORPUSCULAR HGB CONC 32.9 g/dL (32.0-36.0); MEAN CORPUSCULAR VOLUME 97 fl (80-97); MONOCYTES % (AUTO) 9.6 % (3-13); PLATELET COUNT 214 10^3/uL (150-450); RED BLOOD COUNT 4.24 10^6/uL (3.72-5.28); RED CELL DISTRIBUTION WIDTH 17.9 % (11.5-14.0); SEGMENTED NEUTROPHILS % (AUTO) 77.8 % (42-78); TOTAL CELLS COUNTED % (AUTO) 100 %
[2019-02-18 20:45] LABS: INTERNATIONAL RATION (INR) 0.95; PARTIAL THROMBOPLASTIN TIME 22.8 SEC (23.5-35.8); PROTHROMBIN TIME 13.1 SEC (11.4-15.4)
[2019-02-18 21:13] LABS: ALANINE AMINOTRANSFERASE 17 U/L (9-52); ALBUMIN 4.3 g/dL (3.5-5.0); ALKALINE PHOSPHATASE 106 U/L (38-126); ANION GAP 13 (5-19); ASPARTATE AMINO TRANSFERASE 20 U/L (14-36); BILIRUBIN,DIRECT 0.3 mg/dL (0.0-0.4); BILIRUBIN,TOTAL 0.9 mg/dL (0.2-1.3); BLOOD UREA NITROGEN 40 mg/dL (7-20); CALCIUM 10.2 mg/dL (8.4-10.2); CARBON DIOXIDE 19 mmol/L (22-30); CHLORIDE 107 mmol/L (98-107); GLUCOSE 120 mg/dL (75-110); POTASSIUM 5.4 mmol/L (3.6-5.0); SODIUM 139.3 mmol/L (137-145); TOTAL PROTEIN 7.5 g/dL (6.3-8.2)
--- NOTE | 2019-02-18 21:36 | ER Document Report ---
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 Patient gets frequent urinary stents every couple of months at [facility] for urinary retention. Procedure was completed yesterday afternoon and she has not voided since then. She is also had no oral intake. She denies fevers or chills, dizziness or lightheadedness, shortness of breath or chest pain, complains of suprapubic and right lower abdominal pain. TRAVEL OUTSIDE OF THE [place] IN LAST 30 DAYS: No - Related Data Allergies/Adverse Reactions: No Known Allergies Allergy (Verified 02/18/19 19:04) Past Medical History - General Information source: Patient, Relative - Social History Smoking Status: Current Every Day Smoker Family History: Reviewed & Not Pertinent Patient has suicidal ideation: No Patient has homicidal ideation: No - Past Medical History Cardiac Medical History: Reports: Hx Hypercholesterolemia, Hx Hypertension, Hx Peripheral Vascular Disease Denies: Hx Coronary Artery Disease, Hx Heart Attack Pulmonary Medical History: Reports: Hx Bronchitis, Hx COPD Denies: Hx Asthma, Hx Pneumonia Neurological Medical History: Denies: Hx Cerebrovascular Accident, Hx Seizures Endocrine Medical History: Reports: Hx Diabetes Mellitus Type 2 Renal/ Medical History: Denies: Hx End Stage Renal Disease, Hx Peritoneal Dialysis, Hx Renal Insufficiency GI Medical History: Reports: Hx Gastroesophageal Reflux Disease Musculoskeletal Medical History: Reports Hx Arthritis Psychiatric Medical History: Reports: Hx Depression Past Surgical History: Reports: Hx Cholecystectomy, Hx Genitourinary Surgery - bladder lift, Hx Hysterectomy, Hx Tonsillectomy, Hx Vascular Surgery - Immunizations Hx Diphtheria, Pertussis, Tetanus Vaccination: Yes Hx Pneumococcal Vaccination: 10/24/17 Review of Systems - Review of Systems Constitutional: See HPI EENT: No symptoms reported Cardiovascular: See HPI Respiratory: See HPI Gastrointestinal: See HPI Genitourinary: See HPI Female Genitourinary: No symptoms reported Musculoskeletal: No symptoms reported Skin: No symptoms reported Hematologic/Lymphatic: No symptoms reported Neurological/Psychological: No symptoms reported Physical Exam - Vital signs Vitals: Temp Pulse Resp BP Pulse Ox 98.9 F 73 20 190/105 H 95 02/18/19 19:15 02/18/19 19:15 02/18/19 19:15 02/18/19 19:15 02/18/19 19:15 - Notes Notes: PHYSICAL EXAMINATION: Reviewed vital signs and charting by RN GENERAL: Well-appearing, well-nourished and in no acute distress. NECK: Normal range of motion, supple without lymphadenopathy. LUNGS: Breath sounds present, equal, and clear to auscultation bilaterally. No wheezes, rales, or rhonchi. HEART: Regular rate and rhythm without murmurs, rubs, or gallops. 2+ peripheral pulses. Normal capillary refill. ABDOMEN: Soft, acute suprapubic tenderness and right lower quadrant tenderness to palpation, nondistended. Normoactive bowel sounds. No guarding, no rebound. No masses appreciated. BACK: Normal contour, tenderness to palpation right lower back. Rectal exam deferred. PELVC: Deferred. SKIN: Warm, dry, normal turgor, no rashes or lesions noted. Course - Re-evaluation Re-evalutation: 02/18/19 21:35 Patient presents with urinary retention. Plan to order ultrasound of the right kidney ureter and bladder. If there is evidence of obstruction or a full bladder I will place a Rodríguez after discussion with patient. Lab work completed and patient does have an JOHANNY. Still waiting on urine. On studies are complete I will contact [facility] for consultation. 02/18/19 21:37 02/19/19 00:[address] Jackson, on-call urologist at [facility]. I explained to her that we got a renal ultrasound and there is no evidence of hydronephrosis and there was no comment on the placement of the stents but merely that they were present. Rodríguez catheter was placed and there was a large burton of urine that passed into the Rodríguez bag. Urine was sent for testing and there was no evidence of urinary tract infection. Dr. Jackson stated to keep the Rodríguez in place and she is going to talk to her team and call patient's niece in the morning with further follow on recommendations. She recommend the patient continue to take Flomax 0.4 mg daily. Patient is okay to go home with instructions on Rodríguez care. She does not have any evidence of infection, is afebrile, vital signs are within normal limits. I gave patient strict return precautions in the event there is any malfunction with the Rodríguez catheter. 02/19/19 00:25 - Vital Signs Vital signs: Temp Pulse Resp BP Pulse Ox 98.9 F 73 20 190/105 H 95 02/18/19 19:15 02/18/19 19:15 02/18/19 19:15 02/18/19 19:15 02/18/19 19:15 - Laboratory Result Diagrams: 02/18/19 19:45 02/18/19 19:45 Laboratory results interpreted by me: 02/18/19 02/18/19 02/18/19 19:45 19:45 19:45 RDW 17.9 H Lymphocytes % 11.7 L APTT 22.8 L Potassium 5.4 H Carbon Dioxide 19 L BUN 40 H Creatinine 2.88 H Est GFR ( Amer) 19 L Est GFR (Non-Af Amer) 16 L Glucose 120 H Urine Protein Urine Ketones Urine Blood 02/18/19 22:47 RDW Lymphocytes % APTT Potassium Carbon Dioxide BUN Creatinine Est GFR ( Amer) Est GFR (Non-Af Amer) Glucose Urine Protein 100 H Urine Ketones TRACE H Urine Blood LARGE H Discharge - Discharge Clinical Impression: Urinary retention Abdominal pain Qualifiers: Abdominal location: right lower quadrant Qualified Code(s): R10.31 - Right lower quadrant pain Condition: Stable Disposition: HOME, SELF-CARE Instructions: Abdominal Pain ([facility]), Rodríguez Catheter Care ([facility]) Additional Instructions: You were seen in the emergency department this evening for urinary retention. It is possibly related to the procedure you had yesterday and this is why we placed a Rodríguez catheter. You should keep Rodríguez catheter in place and still you follow-up with urology. Dr. Jackson, urologist on-call, is going to talk with the team and they will be contacting you in the next 24 to 48 hours for plan moving forward. We have given you instructions on Rodríguez care, please ensure to follow those instructions to ensure there are no complications. If you notice that there is no urine coming from the Rodríguez bag you can attempt to flush it. If there is a blockage and usual care does not help it please return to the emergency department, if you develop severe worsening abdominal pain, fevers, you become very ill feeling please immediately return to the emergency department for reevaluation. Prescriptions: Tamsulosin HCl [Flomax 0.4 mg Cap.sr] 0.4 mg PO DAILY #7 cap.sr.24h Referrals: ALEC PRATHER MD [ACTIVE STAFF] - Follow up as needed
--- NOTE | 2019-02-18 22:26 | RADIOLOGY REPORT (SQ) ---
EXAM DESCRIPTION: US RETROPERITONEUM COMPLETED DATE/TME: 02/18/2019 21:28 CLINICAL HISTORY: 78 years Female Hx R ureter CA, urinary retention COMPARISON: None. TECHNIQUE: Transabdominal grayscale imaging performed to evaluate the kidneys and urinary bladder. FINDINGS: Right kidney measures 11.2 x 6.2 x 5 cm. No evidence of hydronephrosis on the right. There is fluid surrounding the kidney which may reflect perinephric and perinephric fluid. This could be further assessed with CT. Area of low attenuation in the superior pole of the right kidney which measures 4.6 x 3.7 cm with some internal nodularity and fluid. Findings are consistent with known neoplasm.. Left kidney is not well seen and appears atrophic measuring 5.6 x 2.6 x 2.5 cm. No evidence of hydronephrosis. Bladder is distended. Volume 642 mL. Stents are noted. Neither ureteral jet is identified. IMPRESSION: Complex solid and centrally necrotic mass in the superior pole the right kidney consistent with known neoplasm There appears to be heterogeneous fluid surrounding the kidney which may represent perinephric and paranephric fluid or edema No evidence of hydronephrosis. Neither ureteral jet is identified however Atrophic left kidney Distended urinary bladder Consider further evaluation with CT
[2019-02-18 23:14] LABS: APPEARANCE,URINE CLOUDY; BILIRUBIN,URINE NEGATIVE (NEGATIVE); COLOR,URINE YELLOW; GLUCOSE, URINE NEGATIVE (NEGATIVE); KETONES,URINE TRACE mg/dL (NEGATIVE); LEUKOCYTE ESTERASE,URINE NEGATIVE (NEGATIVE); NITRITE,URINE NEGATIVE (NEGATIVE); PROTEIN,URINE 100 mg/dL (NEGATIVE); URINE SPECIFIC GRAVITY 1.012; UROBILINOGEN,URINE NEGATIVE mg/dL (<2.0)
[2019-02-19] MEDS ORDERED: TAMSULOSIN HCL 0.4 MG CAP.SR.24H PO ONE (00:21)
[2019-02-19 00:33] VITALS: BP 165/89
== END 2019-02-19 00:33 | disposition home or self-care (01) ==
LOC: ER 19:01
DX: R33.9 Retention of urine, unspecified (principal); N17.9 Acute kidney failure, unspecified; Z96.0 Presence of urogenital implants; R10.31 Right lower quadrant pain; R10.813 Right lower quadrant abdominal tenderness; E11.51 Type 2 diabetes mellitus with diabetic peripheral angiopathy without gangrene; I10 Essential (primary) hypertension; F17.200 Nicotine dependence, unspecified, uncomplicated
CPT/HCPCS: 99284; 51702; 36415; 85025; 85610; 85730; 80053; 81001; 76770; A9270

== ENCOUNTER → 2019-02-26 | Outpatient (CLI) | payer BC, MEDICARE ==
--- NOTE | 2019-02-26 12:19 | RADIOLOGY REPORT (SQ) ---
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 TECHNIQUE: CT scan of the chest performed using helical scanning technique with dynamic intravenous contrast injection. Images reviewed with lung, soft tissue and bone windows. Reconstructed coronal and sagittal MPR and MIP images reviewed. All images stored on PACS. All CT scanners at this facility use dose modulation, iterative reconstruction, and/or weight based d osing when appropriate to reduce radiation dose to as low as reasonably achievable (ALARA). [facility]: Dose Right [facility]: CareDose [facility]: Dose Right [facility]: Teradose 4D [facility]: Medical [employer] CONTRAST TYPE AND DOSE: 62 mL Omnipaque 350- low osmolar. RENAL FUNCTION: Creatinine 1.3. RADIATION DOSE: . LIMITATIONS: None. FINDINGS: LUNGS AND PLEURA: Emphysematous changes. Stable area of nodularity in the lateral right u pper lobe adjacent to a bulla. This probably represents an area of scarring. No new nodules or mass es. No pneumothorax. No effusions. HILAR AND MEDIASTINAL STRUCTURES: No identified masses or abnormal nodes. HEART AND VASCULAR STRUCTURES: No aneurysm or dissection. No central pulmonary emboli. No pericardi al effusion. HARDWARE: Vascular port. UPPER ABDOMEN: See separate report of the CT of the abdomen. THYROID AND OTHER SOFT TISSUES: No masses. No adenopathy. BONES: No significant finding. OTHER: No other significant finding. IMPRESSION: STABLE CT OF THE CHEST WITH IV CONTRAST. STABLE AREA OF NODULARITY IN THE LATERAL RIGHT UPPER LOBE, PROBABLY DUE TO SCARRING. NO PROGRESSION OR SIGNIFICANT NEW FINDINGS. TECHNICAL DOCUMENTATION: JOB ID: [id number] Quality ID # [id number]: Final reports with documentation of one or more dose reduction techniques (e.g., Au tomated exposure control, adjustment of the mA and/or kV according to patient size, use of iterative reconstruction technique) 2010 [employer]- All Rights Reserved Reading location - IP/workstation name: [email or web address]
--- NOTE | 2019-02-26 12:34 | RADIOLOGY REPORT (SQ) ---
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 TECHNIQUE: CT scan of the abdomen and pelvis performed using helical scanning technique with dynamic intravenous contrast injection. No oral contrast. Images reviewed with lung, soft tissue, and bone windows. Reconstructed coronal and sagittal MPR images reviewed. Delayed images for evaluation of the urinary system also acquired. All images stored on PACS. All CT scanners at this facility use dose modulation, iterative reconstruction, and/or weight based d osing when appropriate to reduce radiation dose to as low as reasonably achievable (ALARA). [facility]: Dose Right [facility]: CareDose [facility]: Dose Right [facility]: Teradose 4D [facility]: [place] CONTRAST TYPE AND DOSE: contrast/concentration: Isovue 350.00 mg/ml; Total Contrast Delivered: 62.0 ml; Total Saline Delivered: 65.0 ml RENAL FUNCTION: Creatinine 1.3. RADIATION DOSE: CT Rad equipment meets quality standard of care and radiation dose reduction techniq ues were employed. CTDIvol: 4.4 - 4.5 mGy. DLP: 603 mGy-cm.. LIMITATIONS: None. FINDINGS: LOWER CHEST: No significant findings. No nodules or infiltrates. LIVER: Normal size. Small subcentimeter low-attenuation lesions unchanged. No dilated ducts. SPLEEN: Normal size. No focal lesions. PANCREAS: No masses. No significant calcifications. No adjacent inflammation or peripancreatic fluid collections. Pancreatic duct not dilated. GALLBLADDER: Surgically absent. ADRENAL GLANDS: No significant masses or asymmetry. RIGHT KIDNEY AND URETER: The mass in the upper pole of the kidney has increased in size. Current tra nsverse measurements are 4.6 x 5.2 cm with prior measurements 4.2 x 4.4 cm. There is a large irregul ar area of decreased attenuation in the central portion of the mass. The mass now extends into the r enal pelvis and partially engulfs the proximal loop of the ureteral stent (axial series 3, image 32 a nd coronal series 604, image 52). There is moderate hydronephrosis and hydroureter. Nonobstructing calyceal calcifications. LEFT KIDNEY AND URETER: Chronic atrophy. No solid masses. No significant calcifications. No hydr onephrosis or hydroureter. AORTA AND VESSELS: Extensive vascular calcifications. Infrarenal abdominal aortic aneurysm measuring 3.1 cm with eccentric mural thrombus. No dissection. Renal arteries, SMA, celiac without stenosis. RETROPERITONEUM: No retroperitoneal adenopathy, hemorrhage or masses. BOWEL AND PERITONEAL CAVITY: No masses or inflammatory changes. No free fluid or peritoneal masses. APPENDIX: Surgically absent. PELVIS: No mass. No free fluid. Normal bladder. ABDOMINAL WALL: No masses. Stable midline abdominal wall hernia containing the midportion of the tra nsverse colon. BONES: No significant or acute findings. Degenerative changes in the spine. OTHER: No other significant finding. IMPRESSION: 1. MASS IN THE UPPER POLE OF THE RIGHT KIDNEY HAS INCREASED IN SIZE. THERE IS PROMINENT CENTRAL NECR OSIS. THE MASS EXTENDS INTO THE RENAL PELVIS AND PARTIALLY ENGULFS THE PROXIMAL LOOP OF THE URETERAL STENT. THERE IS MODERATE HYDRONEPHROSIS AND HYDROURETER WHICH HAS DEVELOPED SINCE THE PRIOR STUDY, LIKELY DUE TO IMPAIRED FUNCTION OF THE URETERAL STENT DUE TO BLOCKAGE FROM THE RENAL MASS. 2. CHRONIC ATROPHY OF THE LEFT KIDNEY. 3. NONOBSTRUCTING CALYCEAL CALCULI IN THE RIGHT KIDNEY. 4. STABLE TINY SUBCENTIMETER LOW-ATTENUATION LESIONS IN THE LIVER, TOO SMALL TO CHARACTERIZE BUT WITH OUT CHANGE OR PROGRESSION. 5. STABLE 3.1 CM ABDOMINAL AORTIC ANEURYSM. 6. STABLE MIDLINE ABDOMINAL WALL HERNIA CONTAINING A PORTION OF THE TRANSVERSE COLON. NO MECHANICAL OBSTRUCTION. 7. NO OTHER SIGNIFICANT OR ACUTE FINDING IN THE ABDOMEN OR PELVIS ON CT SCAN WITH IV CONTRAST. TECHNICAL DOCUMENTATION: JOB ID: [id number] Quality ID # [id number]: Final reports with documentation of one or more dose reduction techniques (e.g., Au tomated exposure control, adjustment of the mA and/or kV according to patient size, use of iterative reconstruction technique) 2010 [employer]- All Rights Reserved Reading location - IP/workstation name: [email or web address]
== END ==
LOC: RAD 08:10
PROVIDERS: ATTEND Internal Medicine
DX: C66.1 Malignant neoplasm of right ureter (principal)
CPT/HCPCS: 82565; 71260; 74177; J1642

== ENCOUNTER → 2019-06-08 | Outpatient (CLI) | payer MEDICARE ==
--- NOTE | 2019-06-08 10:04 | RADIOLOGY REPORT (SQ) ---
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 TECHNIQUE: CT scan of the abdomen and pelvis performed using helical scanning technique with dynamic intravenous contrast injection. No oral contrast. Images reviewed with lung, soft tissue, and bone windows. Reconstructed coronal and sagittal MPR images reviewed. Delayed images for evaluation of the urinary system also acquired. All images stored on PACS. All CT scanners at this facility use dose modulation, iterative reconstruction, and/or weight based d osing when appropriate to reduce radiation dose to as low as reasonably achievable (ALARA). [facility]: Dose Right [facility]: CareDose [facility]: Dose Right [facility]: Teradose 4D [facility]: [employer] CONTRAST TYPE AND DOSE: contrast/concentration: Isovue 300.00 mg/ml; Total Contrast Delivered: 48.0 ml; Total Saline Delivered: 65.0 ml RENAL FUNCTION: Creatinine 1.6. RADIATION DOSE: . LIMITATIONS: None. FINDINGS: LOWER CHEST: See separate report of the CT of the chest. LIVER: Normal size. A few tiny subcentimeter low-attenuation lesions are unchanged. No dilated duct s. SPLEEN: Normal size. No focal lesions. PANCREAS: No masses. No significant calcifications. No adjacent inflammation or peripancreatic fluid collections. Pancreatic duct not dilated. GALLBLADDER: Surgically absent. ADRENAL GLANDS: No significant masses or asymmetry. RIGHT KIDNEY AND URETER: Irregular mass in the upper pole currently measures 3.6 x 3.6 cm with prior measurement 4.6 x 5.2 cm. The majority of the central portion of the mass is low attenuation. Enhan cing tissue does extend into the renal pelvis. A few small calyceal calculi. Ureteral stent. Mod erate hydronephrosis slightly improved. LEFT KIDNEY AND URETER: Chronic atrophy. No solid masses. No significant calcifications. No hydr onephrosis or hydroureter. AORTA AND VESSELS: 3.2 cm infrarenal abdominal aortic aneurysm with eccentric mural thrombus. Diffus e calcifications. No dissection. Renal arteries, SMA, celiac without stenosis. RETROPERITONEUM: No retroperitoneal adenopathy, hemorrhage or masses. BOWEL AND PERITONEAL CAVITY: No masses or inflammatory changes. No free fluid or peritoneal masses. APPENDIX: Normal. PELVIS: No mass. No free fluid. Normal bladder. ABDOMINAL WALL: No masses. Midline abdominal wall hernia containing a portion of the transverse colo n, unchanged. BONES: No significant or acute findings. Chronic degenerative changes in the spine. OTHER: No other significant finding. IMPRESSION: 1. MASS IN THE UPPER POLE OF THE RIGHT KIDNEY WITH CENTRAL NECROSIS. THE MASS HAS DECREASED IN SIZE. THERE CONTINUES TO BE MODERATE HYDRONEPHROSIS WHICH IS SLIGHTLY IMPROVED. 2. NONOBSTRUCTING CALYCEAL CALCULI IN THE RIGHT KIDNEY. 3. CHRONIC ATROPHY OF THE LEFT KIDNEY. 4. A FEW SMALL SUBCENTIMETER LOW-ATTENUATION LESIONS IN THE LIVER ARE UNCHANGED. 5. 3.2 CM INFRARENAL ABDOMINAL AORTIC ANEURYSM. 6. MIDLINE ABDOMINAL WALL HERNIA CONTAINING A PORTION OF THE TRANSVERSE COLON. NO OBSTRUCTION. 7. NO OTHER SIGNIFICANT OR ACUTE FINDING IN THE ABDOMEN OR PELVIS ON CT SCAN WITH IV CONTRAST. TECHNICAL DOCUMENTATION: JOB ID: [id number] Quality ID # [id number]: Final reports with documentation of one or more dose reduction techniques (e.g., Au tomated exposure control, adjustment of the mA and/or kV according to patient size, use of iterative reconstruction technique) 2010 [employer]- All Rights Reserved Reading location - IP/workstation name: [email or web address]
--- NOTE | 2019-06-08 10:13 | RADIOLOGY REPORT (SQ) ---
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 TECHNIQUE: CT scan of the chest performed using helical scanning technique with dynamic intravenous contrast injection. Images reviewed with lung, soft tissue and bone windows. Reconstructed coronal and sagittal MPR and MIP images reviewed. All images stored on PACS. All CT scanners at this facility use dose modulation, iterative reconstruction, and/or weight based d osing when appropriate to reduce radiation dose to as low as reasonably achievable (ALARA). [facility]: Dose Right [facility]: CareDose [facility]: Dose Right [facility]: Teradose 4D [facility]: [employer]ges CONTRAST TYPE AND DOSE: 48 mL Omnipaque 300- low osmolar. RENAL FUNCTION: Creatinine 1.6. RADIATION DOSE: CT Rad equipment meets quality standard of care and radiation dose reduction techniq ues were employed. CTDIvol: 4.5 - 6.4 mGy. DLP: 658 mGy-cm. . LIMITATIONS: None. FINDINGS: LUNGS AND PLEURA: Emphysematous changes with scarring. Stable mild nodularity in the late ral right upper lobe adjacent to a pulmonary bulla. There are now several new nodules in both lungs. Some of these are clearly solid and others are more indistinct and ground-glass in appearance. The largest of these nodules are in the left upper lobe (axial series 6, image 34) measuring 1.3 cm, lef t lower lobe (axial series 6, image 53) measuring 1.6 cm, and somewhat ill-defined ground-glass nodul e in the anterior right upper lobe (axial series 6, image 49) measuring 1.0 cm. There are several ad ditional smaller nodules in both lungs. No pneumothorax. No effusions. HILAR AND MEDIASTINAL STRUCTURES: No identified masses or abnormal nodes. HEART AND VASCULAR STRUCTURES: No aneurysm or dissection. No central pulmonary emboli. No pericardi al effusion. HARDWARE: Vascular port. UPPER ABDOMEN: See separate report of the CT of the abdomen. THYROID AND OTHER SOFT TISSUES: No masses. No adenopathy. BONES: No significant finding. OTHER: No other significant finding. IMPRESSION: INTERVAL DEVELOPMENT OF MULTIPLE LUNG NODULES CONSISTENT WITH METASTASES. TECHNICAL DOCUMENTATION: JOB ID: [id number] Quality ID # [id number]: Final reports with documentation of one or more dose reduction techniques (e.g., Au tomated exposure control, adjustment of the mA and/or kV according to patient size, use of iterative reconstruction technique) 2010 [employer]- All Rights Reserved Reading location - IP/workstation name: [email or web address] INCLUDES THE [facility] HOSPITALDanilo
== END ==
LOC: RAD 08:43
PROVIDERS: ATTEND Internal Medicine
DX: C66.1 Malignant neoplasm of right ureter (principal)
CPT/HCPCS: 71260; 74177; 82565

== ENCOUNTER → 2019-06-16 | Outpatient (CLI) | payer BC, MEDICARE ==
--- NOTE | 2019-06-17 09:24 | RADIOLOGY REPORT (SQ) ---
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 TECHNIQUE: Blood glucose level was verified. Above dose of FDG was injected intravenously. 2-D seg mented attenuation correction images were obtained from the base of the skull to the midthighs. Nonc ontrast CT images were obtained for attenuation correction and fusion with emission images. CT image s were performed without oral or intravenous contrast and are not sensitive for parenchymal lesions. A series of overlapping emission PET images were obtained. Images reviewed and manipulated at [facility] work station by the radiologist. Images stored on PACS. LIMITATIONS: None. FINDINGS: HEAD AND NECK: Symmetric uptake at the floor mouth and within the bilateral submandibular glands without CT correlate, likely physiologic. Additional uptake at the vocal cords without CT co rrelate, also likely physiologic. No discrete foci of abnormal FDG uptake within the head or neck. CHEST: Previously seen pulmonary nodules demonstrate increased FDG uptake. For reference the left up per lobe nodule measuring 1.4 cm (series 3, images 60) demonstrates mildly increased FDG uptake (max SUV 2.8). The left lower lobe nodule measures 1.7 cm (series 3, image 77) also demonstrates mild FDG uptake (max SUV 2.7). The right upper lobe ground-glass nodule demonstrates ill-defined mild activi ty (max SUV 1.6). No focal hypermetabolic intrathoracic adenopathy. ABDOMEN AND PELVIS: Background liver activity max SUV 2.7. The hypodense mass within the right upper renal pole demonstrates increased uptake (max SUV 9.2) although evaluation limited secondary to phys iologic genitourinary activity. No other abnormal foci of increased uptake within the abdomen. Expe cted physiologic activity within the gastrointestinal and genitourinary system. PROXIMAL LOWER EXTREMITIES: No areas of abnormal metabolic activity in the soft tissues of the lower extremities. BONES: No abnormal metabolic activity in the visualized skeleton. ADDITIONAL CT FINDINGS: Grossly stable appearance of the bilateral pulmonary nodules compared to rece nt chest CT and as detailed above. Scattered coronary atherosclerosis. Right internal jugular base chest port with catheter tip at SVC. Prior cholecystectomy. Grossly similar appearance of the right upper pole renal mass. Right double-J ureteral stent in expected location. Atrophic left kidney, s table. Midline bowel containing hernia, stable. No evidence of intestinal obstruction. Infrarenal abdominal aortic aneurysm measuring up to 3.0 cm, stable. IMPRESSION: 1. Mildly increased FDG uptake within the previously seen bilateral pulmonary nodules ( max SUV 2.8) most compatible with metastatic disease. 2. Increased activity within the known right upper pole renal mass although evaluation limited secon vickie to background genitourinary activity. 3. No other evidence of definitive metastatic disease within the abdomen or pelvis. TECHNICAL DOCUMENTATION: JOB ID: [id number] [employer]- All Rights Reserved Reading location - IP/workstation name: [email or web address]
== END ==
LOC: RAD 17:35
PROVIDERS: ATTEND Internal Medicine
DX: C66.1 Malignant neoplasm of right ureter (principal)
CPT/HCPCS: 78815; A9552

== ENCOUNTER → 2019-09-04 | Outpatient (CLI) | payer BC, MEDICARE ==
--- NOTE | 2019-09-04 11:16 | RADIOLOGY REPORT (SQ) ---
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 Images reviewed with lung, soft tissue and bone windows. Reconstructed coronal a nd sagittal MPR images reviewed. All images stored on PACS. All CT scanners at this facility use dose modulation, iterative reconstruction, and/or weight based d osing when appropriate to reduce radiation dose to as low as reasonably achievable (ALARA). [facility]: Dose Right [facility]: CareDose [facility]: Dose Right [facility]: Teradose 4D [facility]: Smart [employer] RADIATION DOSE: CT Rad equipment meets quality standard of care and radiation dose reduction techniq ues were employed. CTDIvol: 4.5 - 6.8 mGy. DLP: 674 mGy-cm. . LIMITATIONS: None. FINDINGS: AXILLAE: There is a 11.5 mm lymph node in the right axilla. This has slightly increased i n size since prior study. Small stable nodes are noted on the left. CHEST WALL: No masses. No subcutaneous air. LUNGS: Numerous bilateral parenchymal lung nodules. These have increased in size significantly from prior study. The largest in the left upper lobe now measures 2.6 cm compared to approximately 1.2 cm on previous exam. There is a lesion best demonstrated on series 6, image 43 along the major fissure . This measures 9.9 mm on today's study compared to approximately 5 mm on prior exam. In the left b ase there is a 2.1 x 2.7 cm subpleural nodule. This previously measured 1.6 cm in greatest diameter. PLEURA: No effusions. No calcifications. THYROID: No masses or significant asymmetry. HILAR AND MEDIASTINAL STRUCTURES: No identified masses or abnormal nodes. AORTA AND GREAT VESSELS: No aneurysm. No dissection. PULMONARY ARTERIES: No identified pulmonary emboli. Study not optimized for the pulmonary arteries. HEART: No pericardial effusion. HARDWARE AND LIFELINES: Bzylfn-W-Rauj is in place. BONES: No significant finding. OTHER: No other significant finding. IMPRESSION: Bilateral pulmonary nodules have increased in size as described above. There are at monie st 1 to 2 additional pulmonary nodules compared to prior examination as well. COMPARISON: None. RADIATION DOSE: CT Rad equipment meets quality standard of care and radiation dose reduction techniq ues were employed. CTDIvol: 4.5 - 6.8 mGy. DLP: 674 mGy-cm. mGy. TECHNIQUE: CT scan of the abdomen and pelvis performed with intravenous and oral contrast using jacqueline roni scanning technique with dynamic intravenous contrast injection. Images reviewed with lung, soft tissue and bone windows. Reconstructed coronal and sagittal MPR images reviewed. Delayed images for evaluation of the urinary system also acquired and evaluated. All images stored on PACS. All CT scanners at this facility use dose modulation, iterative reconstruction, and/or weight based d osing when appropriate to reduce radiation dose to as low as reasonably achievable (ALARA). [facility]: Dose Right [facility]: [employer] [facility]: Dose Right [facility]: Teradose 4D [facility]: [facility] FINDINGS: LIVER: Occasional small stable hepatic cysts. SPLEEN: Normal size. No focal lesions. PANCREAS: No masses. No significant calcifications. No adjacent inflammation or peripancreatic flui d collections. Pancreatic duct not dilated. GALLBLADDER: Surgically absent. ADRENAL GLANDS: No significant masses or asymmetry. RIGHT KIDNEY AND URETER: Stable right upper pole renal mass. No significant calcifications. No hy dronephrosis or hydroureter. Right double-J ureteral stent is in place. LEFT KIDNEY AND URETER: No solid masses. The left kidney is small and atrophic. No significant roni cifications. No hydronephrosis or hydroureter. AORTA AND VESSELS: Stable approximately 3.7 x 3.4 cm infrarenal abdominal aortic aneurysm with mural thrombus. RETROPERITONEUM: No retroperitoneal adenopathy, hemorrhage or masses. LARGE AND SMALL BOWEL: No dilatation. No masses. No wall thickening. APPENDIX: Normal. ABDOMINAL WALL: Large ventral hernia containing colon. No obstruction. PERITONEAL CAVITY: No free air. No free fluid. No peritoneal implants or masses. PELVIS: No mass or free fluid. Normal bladder. BONES: No significant or acute findings. OTHER: No other significant finding. IMPRESSION: 1. Stable right upper pole renal mass. This measures approximately 3.5 cm in greatest d imensions. Right double-J ureteral stent remains in place. TECHNICAL DOCUMENTATION: JOB ID: [id number] Quality ID # [id number]: Final reports with documentation of one or more dose reduction techniques (e.g., Au tomated exposure control, adjustment of the mA and/or kV according to patient size, use of iterative reconstruction technique) 2010 [employer]- All Rights Reserved Reading location - IP/workstation name: [email or web address]
== END ==
LOC: RAD 09:43
PROVIDERS: ATTEND Internal Medicine
DX: C66.1 Malignant neoplasm of right ureter (principal); R91.8 Other nonspecific abnormal finding of lung field
CPT/HCPCS: 71260; 74177; 82565

== ENCOUNTER → 2019-10-01 | Outpatient (CLI) | payer MEDICARE ==
--- NOTE | 2019-10-01 22:10 | XCELERA REPORT ---
[address] [address] Transthoracic Echocardiogram Report Name: JERILYN MCCARTY Age: 78 yrs Gender: Female : 1940 Patient Status: Outpatient Patient Location: Study Date: 10/01/2019 10:29 AM Height: 65 in Weight: 104 lb BSA: 1.5 m2 Procedure: A complete two-dimensional transthoracic echocardiogram was performed (2D, M-mode, spectral and color flow Doppler). The study was technically adequate with some images being suboptimal in quality. Reason For Study: SOB Ordering Physician: ALEC PRATHER Performed By: Kelly Humphries Interpretation Summary Left ventricular systolic function is low normal. There is mild concentric left ventricular hypertrophy. The left ventricle is grossly normal size. Doppler measurements suggest pseudonormalized left ventricular relaxation, which is associated with grade II/IV or mild to moderate diastolic dysfunction Wall motion cannot be accurately commented on, but no definite regional wall motion abnormalities noted. The right ventricular systolic function is normal. The left atrial size is normal. The right atrium is mildly dilated. There is a moderate amount of mitral regurgitation There is no mitral valve stenosis. There is a trace amount of aortic regurgitation There is no aortic valve stenosis Tricuspid regurgitation jet envelope not well defined to measure RV systolic pressure accurately. There is a trace or physiologic amount of tricuspid regurgitation The inferior vena cava appeared normal and decreased > 50% with respiration (RAP 5-10 mmHg) The aortic root is not well visualized. Minimal pericardial effusion. MMode/2D Measurements & Calculations RVDd: 3.3 cm LVIDd: 5.1 cm FS: 27.2 % Ao root diam: 2.8 cm IVSd: 0.77 cm LVIDs: 3.7 cm EDV(Teich): 122.6 ml Ao root area: 6.0 cm2 LVPWd: 0.92 cm ESV(Teich): 58.0 ml LA dimension: 2.6 cm EF(Teich): 52.7 % Doppler Measurements & Calculations MV E max larry: MV P1/2t max larry: Ao V2 max: LV V1 max P.8 cm/sec 53.3 cm/sec 120.2 cm/sec 3.4 mmHg MV A max larry: MV P1/2t: 84.9 msec Ao max P.8 mmHg LV V1 max: 65.6 cm/sec MVA(P1/2t): 2.6 cm2 91.8 cm/sec MV E/A: 0.80 MV dec slope: 184.0 cm/sec2 PA V2 max: TR max larry: MV P1/2t-pr_phl: 96.7 cm/sec 248.0 cm/sec 84.9 msec PA max PG: TR max P.6 mmHg 3.7 mmHg Left Ventricle The left ventricle is grossly normal size. There is mild concentric left ventricular hypertrophy. Left ventricular systolic function is low normal. Doppler measurements suggest pseudonormalized left ventricular relaxation, which is associated with grade II/IV or mild to moderate diastolic dysfunction. Wall motion cannot be accurately commented on, but no definite regional wall motion abnormalities noted. Right Ventricle The right ventricle is grossly normal size. There is normal right ventricular wall thickness. The right ventricular systolic function is normal. Atria The right atrium is mildly dilated. The left atrial size is normal. Interarterial septum not well visualized and not well dopplered. Cannot comment on ASD/PFO presence. Mitral Valve The mitral valve leaflets are sclerotic, but show no functional abnormalities. There is no mitral valve stenosis. There is a moderate amount of mitral regurgitation. Aortic Valve The aortic valve is grossly normal. There is no aortic valve stenosis. There is a trace amount of aortic regurgitation. Tricuspid Valve The tricuspid valve is not well visualized, but is grossly normal. There is no tricuspid stenosis. There is a trace or physiologic amount of tricuspid regurgitation. Tricuspid regurgitation jet envelope not well defined to measure RV systolic pressure accurately. Pulmonic Valve The pulmonic valve is not well visualized. Great Vessels The aortic root is not well visualized. The inferior vena cava appeared normal and decreased > 50% with respiration (RAP 5-10 mmHg). Effusions Minimal pericardial effusion. : ALEC PRATHER Shyamal
== END ==
LOC: SP 09:58
PROVIDERS: ATTEND Internal Medicine
DX: R06.02 Shortness of breath (principal); C66.1 Malignant neoplasm of right ureter
CPT/HCPCS: 93306

== ENCOUNTER 2019-12-06 14:35 | Inpatient (IN) | payer MEDICARE ==
--- NOTE | 2019-12-06 15:01 | ER Document Report ---
ED Medical Screen (RME) - General Chief Complaint: Cough Stated Complaint: COUGH Time Seen by Provider: 12/06/19 14:51 Primary Care Provider: ALEC PRATHER MD [Primary Care Provider] - Follow up as needed Mode of Arrival: Wheelchair Information source: Patient, Relative Notes: 79-year-old female with history of lung cancer bladder cancer currently being treated with chemo presents to the emergency department with cough and fever for the past 2 weeks. Reports she was recently placed on Zithromax and scribed hydrocodone cough syrup on Saturday. Patient presents with her Zithromax but it is obvious she is not taking the medications correctly. She still has 3 pills left. Patient also reports cough syrups not working because she still coughing. Reports she has pain at the thoracic area. Denies chest pain. Reports she is extremely short of breath. Patient has not been out of the country or been exposed to anybody from with a coronavirus. Patient also reports fever but has not taken any Tylenol or Motrin today I have greeted and performed a rapid initial assessment of this patient. A comprehensive ED assessment and evaluation of the patient, analysis of test results and completion of the medical decision making process will be conducted by additional ED providers. TRAVEL OUTSIDE OF THE [place] IN LAST 30 DAYS: No - Related Data Allergies/Adverse Reactions: No Known Allergies Allergy (Verified 02/18/19 19:04) Past Medical History - Past Medical History Cardiac Medical History: Reports: Hx Hypercholesterolemia, Hx Hypertension, Hx Peripheral Vascular Disease Denies: Hx Coronary Artery Disease, Hx Heart Attack Pulmonary Medical History: Reports: Hx Bronchitis, Hx COPD Denies: Hx Asthma, Hx Pneumonia Neurological Medical History: Denies: Hx Cerebrovascular Accident, Hx Seizures Endocrine Medical History: Reports: Hx Diabetes Mellitus Type 2 Renal/ Medical History: Denies: Hx End Stage Renal Disease, Hx Peritoneal Dialysis, Hx Renal Insufficiency GI Medical History: Reports: Hx Gastroesophageal Reflux Disease Musculoskeltal Medical History: Reports Hx Arthritis Psychiatric Medical History: Reports: Hx Depression Past Surgical History: Reports: Hx Cholecystectomy, Hx Genitourinary Surgery - bladder lift, Hx Hysterectomy, Hx Tonsillectomy, Hx Vascular Surgery - Immunizations Hx Diphtheria, Pertussis, Tetanus Vaccination: Yes Physical Exam - Vital signs Vitals: Temp Pulse Resp BP 97.5 F 101 H 20 119/68 12/06/19 14:57 12/06/19 14:57 12/06/19 14:57 12/06/19 14:57 Course - Vital Signs Vital signs: Temp Pulse Resp BP Pulse Ox 97.5 F 101 H 20 119/68 12/06/19 14:57 12/06/19 14:57 12/06/19 14:57 12/06/19 14:57 Doctor's Discharge - Discharge Referrals: ALEC PRATHER MD [Primary Care Provider] - Follow up as needed
--- NOTE | 2019-12-06 15:51 | RADIOLOGY REPORT (SQ) ---
EXAM DESCRIPTION: CHEST 2 VIEWS COMPLETED DATE/TIME: 12/06/2019 3:36 pm REASON FOR STUDY: cough fever hx lung cancer COMPARISON: 11/06/2018 EXAM PARAMETERS: NUMBER OF VIEWS: two views TECHNIQUE: Digital Frontal and Lateral radiographic views of the chest acquired. RADIATION DOSE: NA LIMITATIONS: none FINDINGS: LUNGS AND PLEURA: Right middle lobe collapse. The lungs are otherwise clear. No pneumoth orax. No pleural effusion. MEDIASTINUM AND HILAR STRUCTURES: No masses or contour abnormalities. HEART AND VASCULAR STRUCTURES: Heart normal size. No evidence for failure. BONES: No acute findings. HARDWARE: Right anterior chest wall Port-A-Cath, stable. OTHER: No other significant finding. IMPRESSION: Right middle lobe collapse. Differential considerations are broad to include middle lob e syndrome, mucous plug, foreign body aspiration, bronchogenic carcinoma, etc. TECHNICAL DOCUMENTATION: JOB ID: [id number] 2010 [employer]- All Rights Reserved Reading location - IP/workstation name: [email or web address]
[2019-12-06 16:29] LABS: HEMATOCRIT 27.8 % (36.0-47.0); HEMOGLOBIN 9.3 g/dL (12.0-15.5); MEAN CORPUSCULAR HEMOGLOBIN 31.6 pg (27.0-33.4); MEAN CORPUSCULAR HGB CONC 33.4 g/dL (32.0-36.0); MEAN CORPUSCULAR VOLUME 95 fl (80-97); PLATELET COUNT 378 10^3/uL (150-450); RED BLOOD COUNT 2.93 10^6/uL (3.72-5.28); RED CELL DISTRIBUTION WIDTH 18.2 % (11.5-14.0); WHITE BLOOD COUNT 6.4 10^3/uL (4.0-10.5)
[2019-12-06 16:39] LABS: ALBUMIN 3.2 g/dL (3.5-5.0); ALKALINE PHOSPHATASE 98 U/L (38-126); ANION GAP 10 (5-19); ASPARTATE AMINO TRANSFERASE 33 U/L (14-36); BILIRUBIN,DIRECT 0.5 mg/dL (0.0-0.4); BILIRUBIN,TOTAL 0.8 mg/dL (0.2-1.3); BLOOD UREA NITROGEN 30 mg/dL (7-20); CALCIUM 9.3 mg/dL (8.4-10.2); CARBON DIOXIDE 26 mmol/L (22-30); CHLORIDE 98 mmol/L (98-107); GLUCOSE 114 mg/dL (75-110); POTASSIUM 4.4 mmol/L (3.6-5.0); TOTAL PROTEIN 6.6 g/dL (6.3-8.2)
[2019-12-06 16:54] LABS: ABSOLUTE LYMPHOCYTES# (MANUAL) 0.7 10^3/uL (0.5-4.7); BASOPHILS % (MANUAL) 0 % (0-2); EOSINOPHILS % (MANUAL) 1 % (0-6); LYMPHOCYTES % (MANUAL) 11 % (13-45); MONOCYTES % (MANUAL) 16 % (3-13); SEGMENTED NEUTROPHILS % (MAN) 72 % (42-78); TOTAL CELLS COUNTED 100
[2019-12-06] MEDS ORDERED: CEFTRIAXONE 1 GM/D5W RTU 1 GM/50 ML RTUPB IV ONE (16:54)
[2019-12-06 16:55] LABS: ANISOCYTOSIS 2+; POLYCHROMASIA SLIGHT
[2019-12-06 16:56] LABS: PLATELET CLUMPS PRESENT; PLATELET COMMENT ADEQUATE
--- NOTE | 2019-12-06 18:02 | ER Document Report ---
Entered by SUSANNAH AVALOS SCRIBE 12/06/19 1640 Acting as scribe for:MIGUEL LUGO DO ED General - General Chief Complaint: Cough Stated Complaint: COUGH Time Seen by Provider: 12/06/19 14:51 Primary Care Provider: ALEC PRATHER MD [Primary Care Provider] - Follow up as needed Mode of Arrival: Wheelchair Information source: Patient Notes: 79-year-old female with right lobe lung cancer presents to the emergency department complaining of a cough that began 2 weeks ago. Patient was placed on Zithromax and hydrocodone on Saturday after chemotherapy for symptoms. Patient states that she is worse today. Patient reports a non-productive cough with sputum occasionally. Patient reports fever and nausea. Patient denies chest pain and vomiting. Patient explains that she lives at home with and is not on oxygen at home. TRAVEL OUTSIDE OF THE [place] IN LAST 30 DAYS: No - Related Data Allergies/Adverse Reactions: No Known Allergies Allergy (Verified 02/18/19 19:04) Past Medical History - General Information source: Patient, Relative - Social History Smoking Status: Never Smoker Cigarette use (# per day): No Chew tobacco use (# tins/day): No Lives with: Spouse/Significant other Family History: Reviewed & Not Pertinent Patient has suicidal ideation: No Patient has homicidal ideation: No - Past Medical History Cardiac Medical History: Reports: Hx Hypercholesterolemia, Hx Hypertension, Hx Peripheral Vascular Disease Pulmonary Medical History: Reports: Hx Bronchitis, Hx COPD Endocrine Medical History: Reports: Hx Diabetes Mellitus Type 2 Malignancy Medical History: Reports: Hx Lung Cancer, Other - Bladder cancer GI Medical History: Reports: Hx Gastroesophageal Reflux Disease Musculoskeletal Medical History: Reports Hx Arthritis Psychiatric Medical History: Reports: Hx Depression Past Surgical History: Reports: Hx Cholecystectomy, Hx Genitourinary Surgery - bladder lift, Hx Hysterectomy, Hx Tonsillectomy, Hx Vascular Surgery - Immunizations Hx Diphtheria, Pertussis, Tetanus Vaccination: Yes Hx Pneumococcal Vaccination: 10/24/17 Review of Systems - Review of Systems Constitutional: See HPI, Fever EENT: No symptoms reported Cardiovascular: See HPI. denies: Chest pain Respiratory: See HPI, Cough, Sputum Gastrointestinal: See HPI, Nausea. denies: Vomiting Genitourinary: No symptoms reported Female Genitourinary: No symptoms reported Musculoskeletal: No symptoms reported Skin: No symptoms reported Hematologic/Lymphatic: No symptoms reported Neurological/Psychological: No symptoms reported -: Yes All other systems reviewed and negative Physical Exam - Vital signs Vitals: Temp Pulse Resp BP Pulse Ox 97.5 F 101 H 20 119/68 84 L 12/06/19 14:57 12/06/19 14:57 12/06/19 14:57 12/06/19 14:57 12/06/19 14:57 - Notes Notes: Physical Exam: General: Alert, appears frail and chronically ill. HEENT: Normocephalic. Atraumatic. PERRL. Extraocular movements intact. Oropharynx clear. Neck: Supple. Non-tender. Respiratory: No respiratory distress. Coarse breath sounds scattered bilaterally. Cardiovascular: Regular rate and rhythm. Abdominal: Normal Inspection. Non-tender. No distension. Normal Bowel Sounds. Back: No gross abnormalities. Extremities: Moves all four extremities. Upper extremities: Normal inspection. Normal ROM. Lower extremities: Normal inspection. No edema. Normal ROM. Neurological: Normal cognition. AAOx4. Normal speech. Psychological: Normal affect. Normal Mood. Skin: Warm. Dry. Normal color. Course - Vital Signs Vital signs: Temp Pulse Resp BP Pulse Ox 97.5 F 101 H 14 135/73 H 93 12/06/19 14:57 12/06/19 14:57 12/06/19 17:59 12/06/19 18:00 12/06/19 18:00 - Laboratory Result Diagrams: 12/06/19 15:50 12/06/19 15:50 Laboratory results interpreted by me: 12/06/19 12/06/19 15:50 15:50 RBC 2.93 L Hgb 9.3 L Hct 27.8 L RDW 18.2 H Lymphocytes % (Manual) 11 L Monocytes % (Manual) 16 H Sodium 134.1 L BUN 30 H Creatinine 1.32 H Est GFR ( Amer) 47 L Est GFR (MDRD) Non-Af 39 L Glucose 114 H Direct Bilirubin 0.5 H Albumin 3.2 L Critical Care Note - Critical Care Note Total time excluding time spent on procedures (mins): 30 Discharge - Discharge Clinical Impression: Tobacco abuse Acute respiratory failure Qualifiers: Respiratory failure complication: hypoxia Qualified Code(s): J96.01 - Acute respiratory failure with hypoxia Condition: Fair Disposition: ADMITTED INPATIENT Admitting Provider: Nadia (Hospitalist) Unit Admitted: Telemetry Referrals: ALEC PRATHER MD [Primary Care Provider] - Follow up as needed I personally performed the services described in the documentation, reviewed and edited the documentation which was dictated to the scribe in my presence, and it accurately records my words and actions.
[2019-12-06] MEDS ORDERED: PROMETHAZINE HCL INJ 25 MG/1 ML VIAL IV PRN (18:30)
[2019-12-06] MEDS ORDERED: IPRATROPIUM/ALBUTEROL 0.5-2.5 MG/3 ML AMPUL NEB PRN (18:30)
[2019-12-06] MEDS ORDERED: MAGNESIUM HYDROXIDE SUSP 30 ML UDCUP PO PRN (18:30)
[2019-12-06] MEDS ORDERED: ONDANSETRON HCL INJ/PF 4 MG/2 ML SDV IV PRN (18:30)
[2019-12-06] MEDS ORDERED: NORMAL SALINE 1000 ML 1,000 ML IV PRN (18:30)
[2019-12-06] MEDS ORDERED: TEMAZEPAM 15 MG CAPSULE PO PRN (18:30)
[2019-12-06] MEDS ORDERED: HYDRALAZINE HCL INJ/PF 20 MG/1 ML SDV IV PRN (18:34)
[2019-12-06] MEDS ORDERED: GLUCAGON,HUMAN RECOMB 1 MG INJ IM PRN (18:34)
[2019-12-06] MEDS ORDERED: DEXTROSE 50%-WATER 25 GM/50 ML DISP.SYRIN IV PRN ×2 (18:34)
[2019-12-06] MEDS ORDERED: DEXTROSE 40% GEL 15 GM TUBE PO PRN ×2 (18:34)
[2019-12-06] MEDS ORDERED: METOPROLOL TARTRATE PF/INJ 5 MG/5 ML SDV IV PRN (18:35)
[2019-12-06 18:37] LABS: A TYPE INFLUENZA AG NEGATIVE (NEGATIVE); B INFLUENZA AG NEGATIVE (NEGATIVE)
--- NOTE | 2019-12-06 18:48 | PDOC H&P ---
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 Patient was given Z-Dorian by PCP with no improvement of symptoms. Patient denies any fever, fatigue, shortness of breath, chills, nausea, vomiting, diarrhea, constipation, urinary symptoms, sick contact, recent travel, contact with anybody with recent overseas travel. Patient recently diagnosed with right lung cancer, followed by Dr. Prather, currently on chemotherapy, last chemotherapy last Saturday, stating she had this cough before receiving her latest chemotherapy. In ED was noted to be hypoxic, tachycardic, tachypnea, chest x-ray positive for right middle lobe collapse, differential pneumonia, mucous plugging or aspiration. Hospital was consulted for admission. Past Medical History Cardiac Medical History: Reports: Hyperlipidema, Hypertension, Peripheral Vascular Disease Denies: Coronary Artery Disease, Myocardial Infarction Pulmonary Medical History: Reports: Bronchitis, Chronic Obstructive Pulmonary Disease (COPD) Denies: Asthma, Pneumonia Neurological Medical History: Denies: Seizures Endocrine Medical History: Reports: Diabetes Mellitus Type 2 Renal/ Medical History: Denies: End Stage Renal Disease Malignancy Medical History: Reports: Lung Cancer, Other - Bladder cancer GI Medical History: Reports: Gastroesophageal Reflux Disease Musculoskeltal Medical History: Reports: Arthritis Psychiatric Medical History: Reports: Depression Hematology: Reports: Anemia Past Surgical History Past Surgical History: Reports: Cholecystectomy, Hysterectomy, Tonsillectomy, Vascular Surgery Social History Lives with: Spouse/Significant other Smoking Status: Never Smoker Frequency of Alcohol Use: None Hx Recreational Drug Use: No Drugs: None Hx Prescription Drug Abuse: No Family History Family History: Reviewed & Not Pertinent Parental Family History Reviewed: Yes Children Family History Reviewed: Yes Sibling(s) Family History Reviewed.: Yes Medication/Allergy Home Medications: Atorvastatin Calcium [Lipitor 80 mg Tablet] 80 mg PO QHS 03/03/18 Gabapentin [Neurontin 300 mg Capsule] 300 mg PO Q12 03/03/18 Metformin HCl [Glucophage 500 mg Tablet] 500 mg PO BID 03/03/18 Omeprazole 20 mg PO DAILY 03/03/18 Tamsulosin HCl [Flomax 0.4 mg Cap.sr] 0.4 mg PO DAILY #7 cap.sr.24h 02/19/19 Megestrol Acetate [Megace Naima 400 mg/10 ml Udcup] 400 mg PO DAILY 12/07/19 Metoprolol Tartrate [Lopressor 50 mg Tablet] 50 mg PO Q12 12/07/19 Allergies/Adverse Reactions: No Known Allergies Allergy (Verified 02/18/19 19:04) Review of Systems Review of Systems: as per hpi Physical Exam Vital Signs: Temp Pulse Resp BP Pulse Ox 97.5 F 101 H 14 135/73 H 93 12/06/19 14:57 12/06/19 14:57 12/06/19 17:59 12/06/19 18:00 12/06/19 18:00 Intake & Output 12/05/19 12/06/19 12/07/19 06:59 06:59 06:59 Intake Total 50 Balance 50 Weight 45.3 kg General appearance: PRESENT: no acute distress, thin Respiratory exam: PRESENT: clear to auscultation nikhil. ABSENT: rales, rhonchi, wheezes Cardiovascular exam: PRESENT: RRR. ABSENT: diastolic murmur, rubs, systolic murmur GI/Abdominal exam: PRESENT: normal bowel sounds, soft. ABSENT: distended, guarding, mass, organolmegaly, rebound, tenderness Neurological exam: PRESENT: alert, awake, oriented to person, oriented to place, oriented to time, oriented to situation, CN II-XII grossly intact. ABSENT: motor sensory deficit Results Laboratory Results: 12/06/19 15:50 12/06/19 15:50 12/06/19 12/06/19 12/06/19 15:50 15:50 15:50 WBC 6.4 RBC 2.93 L Hgb 9.3 L Hct 27.8 L MCV 95 MCH 31.6 MCHC 33.4 RDW 18.2 H Plt Count 378 Seg Neutrophils % Not Reportable Sodium 134.1 L Potassium 4.4 Chloride 98 Carbon Dioxide 26 Anion Gap 10 BUN 30 H Creatinine 1.32 H Est GFR ( Amer) 47 L Glucose 114 H Lactic Acid 1.3 Calcium 9.3 Total Bilirubin 0.8 AST 33 Alkaline Phosphatase 98 Total Protein 6.6 Albumin 3.2 L 12/06/19 15:50 Troponin I 0.027 Impressions: Chest X-Ray 12/06/19 14:58 IMPRESSION: Right middle lobe collapse. Differential considerations are broad to include middle lobe syndrome, mucous plug, foreign body aspiration, bronchogenic carcinoma, etc. Assessment and Plan - Diagnosis (1) Acute respiratory failure with hypoxia Is this a current diagnosis for this admission?: Yes Plan: Likely due to underlying pneumonia. SPO2 80s on RA on admission. Denies any fever or chills. No leukocytosis. Chest x-ray possible atelectasis or pneumonia. Admit to telemetry, empiric broad-spectrum IV antibiotics, sputum culture, blood culture, incentive spirometry, flutter valve, pulmonary toileting. Haemophilus influenza A/B both negative. (2) CKD (chronic kidney disease) Qualifiers: Chronic kidney disease stage: stage 2 (mild) Qualified Code(s): N18.2 - Chronic kidney disease, stage 2 (mild) Is this a current diagnosis for this admission?: Yes Plan: Nonoliguric. Electrolytes WNL. Euvolemic. Monitor volume status and electrolytes. Replace as needed. Avoid nephrotoxic meds. Outpatient PCP and nephrology follow-up. (3) Pneumonia Qualifiers: Pneumonia type: due to unspecified organism Laterality: right Lung location: middle lobe of lung Qualified Code(s): J18.9 - Pneumonia, unspecified organism Is this a current diagnosis for this admission?: Yes Plan: Most likely community-acquired caused by gram-positive cocci/rods including Stre ptococcus pneumonia. Plan as per #1. (4) Hypertension Is this a current diagnosis for this admission?: Yes Plan: Euvolemic. Normotensive. Restart home meds. Adjust meds as needed. Outpatient PCP follow-up. (5) Hyperlipidemia Is this a current diagnosis for this admission?: Yes Plan: Restart home meds. (6) Tobacco abuse Is this a current diagnosis for this admission?: Yes Plan: Counseled on quitting. NicoDerm patch will be provided. (7) Diabetes Qualifiers: Diabetes mellitus type: type 2 Is this a current diagnosis for this admission?: Yes Plan: Diabetic diet. Sliding scale, pre-meal and basal insulin. Accu-Chek Hypoglycemia protocol. Adjust dosage as needed. 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
[2019-12-06] MEDS: IPRATROPIUM/ALBUTEROL 0.5-2.5 MG/3 ML AMPUL NEB SCH (20:21)
[2019-12-06 20:43] LABS: APPEARANCE,URINE SLIGHTLY-CLOUDY; BILIRUBIN,URINE NEGATIVE (NEGATIVE); COLOR,URINE YELLOW; GLUCOSE, URINE NEGATIVE (NEGATIVE); KETONES,URINE NEGATIVE (NEGATIVE); LEUKOCYTE ESTERASE,URINE NEGATIVE (NEGATIVE); NITRITE,URINE NEGATIVE (NEGATIVE); PROTEIN,URINE 30 mg/dL (NEGATIVE); URINE SPECIFIC GRAVITY 1.013; UROBILINOGEN,URINE NEGATIVE mg/dL (<2.0)
[2019-12-06] MEDS: GUAIFENESIN 600 MG TABLET.SA PO SCH (21:51)
[2019-12-06] MEDS: ACETAMINOPHEN 325 MG TABLET PO PRN (21:51)
[2019-12-06] MEDS: INSULIN LISPRO 100 UNIT/ML 3 ML VIAL SUBCUT SCH (21:52)
--- NOTE | 2019-12-07 00:37 | EKG REPORT ---
SEVERITY:- ABNORMAL ECG - SINUS RHYTHM PROBABLE LEFT VENTRICULAR HYPERTROPHY : Confirmed by: Cyndee Franklin 07-Dec-2019 00:36:50
[2019-12-07] MEDS: HEPARIN SOD (PORCINE) 5,000 UNIT/ML 1 ML VIAL SUBCUT SCH ×3 (05:24→21:25)
[2019-12-07] MEDS: PANTOPRAZOLE SODIUM 40 MG TABLET.DR PO SCH ×2 (05:24→17:52)
[2019-12-07 06:22] LABS: HEMATOCRIT 26.8 % (36.0-47.0); HEMOGLOBIN 9.2 g/dL (12.0-15.5); MEAN CORPUSCULAR HEMOGLOBIN 32.6 pg (27.0-33.4); MEAN CORPUSCULAR HGB CONC 34.5 g/dL (32.0-36.0); MEAN CORPUSCULAR VOLUME 95 fl (80-97); PLATELET COUNT 369 10^3/uL (150-450); RED BLOOD COUNT 2.83 10^6/uL (3.72-5.28); RED CELL DISTRIBUTION WIDTH 18.1 % (11.5-14.0); WHITE BLOOD COUNT 5.2 10^3/uL (4.0-10.5)
[2019-12-07 06:25] LABS: ALBUMIN 2.9 g/dL (3.5-5.0); ALKALINE PHOSPHATASE 86 U/L (38-126); ANION GAP 9 (5-19); ASPARTATE AMINO TRANSFERASE 25 U/L (14-36); BILIRUBIN,DIRECT 0.5 mg/dL (0.0-0.4); BILIRUBIN,TOTAL 0.5 mg/dL (0.2-1.3); BLOOD UREA NITROGEN 24 mg/dL (7-20); CARBON DIOXIDE 27 mmol/L (22-30); CHLORIDE 101 mmol/L (98-107); GLUCOSE 105 mg/dL (75-110); POTASSIUM 4.2 mmol/L (3.6-5.0); TOTAL PROTEIN 6.2 g/dL (6.3-8.2)
[2019-12-07 07:03] LABS: ABSOLUTE MONOCYTES # (MANUAL) 1.1 10^3/uL (0.1-1.4); BAND NEUTROPHILS % (MANUAL) 1 % (3-5); BASOPHILS % (MANUAL) 0 % (0-2); EOSINOPHILS % (MANUAL) 1 % (0-6); LYMPHOCYTES % (MANUAL) 19 % (13-45); MONOCYTES % (MANUAL) 21 % (3-13); SEGMENTED NEUTROPHILS % (MAN) 58 % (42-78); TOTAL CELLS COUNTED 100
[2019-12-07 07:07] LABS: ANISOCYTOSIS 1+; OVALOCYTES 1+; PLATELET COMMENT ADEQUATE; POIKILOCYTOSIS 1+; TEAR DROP CELLS 1+; TOXIC GRANULATION 1+
--- NOTE | 2019-12-07 07:35 | PDOC CONSULTATION ---
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 Received a dose last week. Prior to that she was beginning to feel some right-sided chest pain as well as cough, we treated her with a course of antibiotic with Z-Dorian. But it did not improve and she now presents with increasing right chest pain, ultimately imaging with x-ray indicated a right middle lobe consolidation with lung collapse consistent with a postobstructive pneumonia. She is on appropriate antibiotics now IV. Past Medical History Cardiac Medical History: Reports: Hyperlipidema, Hypertension, Peripheral Vascular Disease Denies: Coronary Artery Disease, Myocardial Infarction Pulmonary Medical History: Reports: Bronchitis, Chronic Obstructive Pulmonary Disease (COPD) Denies: Asthma, Pneumonia Neurological Medical History: Denies: Seizures Endocrine Medical History: Reports: Diabetes Mellitus Type 2 Renal/ Medical History: Denies: End Stage Renal Disease Malignancy Medical History: Reports: Other - Bladder cancer with mets to lung GI Medical History: Reports: Gastroesophageal Reflux Disease Musculoskeltal Medical History: Reports: Arthritis Psychiatric Medical History: Reports: Depression Hematology: Reports: Anemia Past Surgical History Past Surgical History: Reports: Cholecystectomy, Hysterectomy, Tonsillectomy, Vascular Surgery Social History Information Source: Patient Lives with: Spouse/Significant other Smoking Status: Current Every Day Smoker Frequency of Alcohol Use: None Hx Recreational Drug Use: No Drugs: None Hx Prescription Drug Abuse: No - Advance Directive Resuscitation Status: Do Not Resuscitate Family History Family History: Reviewed & Not Pertinent Parental Family History Reviewed: Yes Children Family History Reviewed: Yes Sibling(s) Family History Reviewed.: Yes Medication/Allergy Home Medications: Atorvastatin Calcium [Lipitor 80 mg Tablet] 80 mg PO QHS 03/03/18 Gabapentin [Neurontin 300 mg Capsule] 300 mg PO Q12 03/03/18 Metformin HCl [Glucophage 500 mg Tablet] 500 mg PO BID 03/03/18 Omeprazole 20 mg PO DAILY 03/03/18 Tamsulosin HCl [Flomax 0.4 mg Cap.sr] 0.4 mg PO DAILY #7 cap.sr.24h 02/19/19 Hydrochlorothiazide [Hydrodiuril 25 mg Tablet] 25 mg PO DAILY 12/07/19 Megestrol Acetate [Megace Naima 400 mg/10 ml Udcup] 400 mg PO DAILY 12/07/19 Metoprolol Tartrate [Lopressor 50 mg Tablet] 50 mg PO Q12 12/07/19 Allergies/Adverse Reactions: No Known Allergies Allergy (Verified 02/18/19 19:04) Review of Systems Constitutional: ABSENT: chills, fever(s), headache(s), weight gain, weight loss Eyes: ABSENT: visual disturbances Ears: ABSENT: hearing changes Cardiovascular: ABSENT: chest pain, dyspnea on exertion, edema, orthropnea, palpitations Respiratory: ABSENT: cough, hemoptysis Gastrointestinal: ABSENT: abdominal pain, constipation, diarrhea, hematemesis, hematochezia, nausea, vomiting Genitourinary: ABSENT: dysuria, hematuria Musculoskeletal: ABSENT: joint swelling Integumentary: ABSENT: rash, wounds Neurological: ABSENT: abnormal gait, abnormal speech, confusion, dizziness, focal weakness, syncope Psychiatric: ABSENT: anxiety, depression, homidical ideation, suicidal ideation Endocrine: ABSENT: cold intolerance, heat intolerance, polydipsia, polyuria Hematologic/Lymphatic: ABSENT: easy bleeding, easy bruising Physical Exam Vital Signs: Temp Pulse Resp BP Pulse Ox 98.6 F 81 17 132/64 H 100 12/07/19 03:13 12/07/19 03:13 12/07/19 03:13 12/07/19 03:13 12/07/19 03:13 Intake & Output 12/06/19 12/07/19 12/08/19 06:59 06:59 06:59 Intake Total 392 Output Total 1000 Balance -608 Weight 42.1 kg General appearance: PRESENT: no acute distress, well-developed, well-nourished Head exam: PRESENT: atraumatic, normocephalic Eye exam: PRESENT: conjunctiva pink, EOMI, PERRLA. ABSENT: scleral icterus Ear exam: PRESENT: normal external ear exam Mouth exam: PRESENT: moist, tongue midline Neck exam: ABSENT: carotid bruit, JVD, lymphadenopathy, thyromegaly Respiratory exam: PRESENT: clear to auscultation nikhil. ABSENT: rales, rhonchi, wheezes Cardiovascular exam: PRESENT: RRR. ABSENT: diastolic murmur, rubs, systolic murmur Pulses: PRESENT: normal dorsalis pedis pul Vascular exam: PRESENT: normal capillary refill GI/Abdominal exam: PRESENT: normal bowel sounds, soft. ABSENT: distended, guarding, mass, organolmegaly, rebound, tenderness Rectal exam: PRESENT: deferred Extremities exam: PRESENT: full ROM. ABSENT: calf tenderness, clubbing, pedal edema Neurological exam: PRESENT: alert, awake, oriented to person, oriented to place, oriented to time, oriented to situation, CN II-XII grossly intact. ABSENT: motor sensory deficit Psychiatric exam: PRESENT: appropriate affect, normal mood. ABSENT: homicidal ideation, suicidal ideation Skin exam: PRESENT: dry, intact, warm. ABSENT: cyanosis, rash Results Laboratory Results: 12/07/19 05:30 12/07/19 05:30 12/06/19 12/06/19 12/06/19 15:50 15:50 15:50 WBC 6.4 RBC 2.93 L Hgb 9.3 L Hct 27.8 L MCV 95 MCH 31.6 MCHC 33.4 RDW 18.2 H Plt Count 378 Seg Neutrophils % Not Reportable Sodium 134.1 L Potassium 4.4 Chloride 98 Carbon Dioxide 26 Anion Gap 10 BUN 30 H Creatinine 1.32 H Est GFR ( Amer) 47 L Glucose 114 H Lactic Acid 1.3 Calcium 9.3 Magnesium Total Bilirubin 0.8 AST 33 Alkaline Phosphatase 98 Total Protein 6.6 Albumin 3.2 L Urine Color Urine Appearance Urine pH Ur Specific [place] Urine Protein Urine Glucose (UA) Urine Ketones Urine Blood Urine Nitrite Ur Leukocyte Esterase Urine WBC (Auto) Urine RBC (Auto) 12/06/19 12/07/19 12/07/19 20:15 05:30 05:30 WBC 5.2 RBC 2.83 L Hgb 9.2 L Hct 26.8 L MCV 95 MCH 32.6 MCHC 34.5 RDW 18.1 H Plt Count 369 Seg Neutrophils % Not Reportable Sodium 137.2 Potassium 4.2 Chloride 101 Carbon Dioxide 27 Anion Gap 9 BUN 24 H Creatinine 1.22 Est GFR ( Amer) 51 L Glucose 105 Lactic Acid Calcium 9.0 Magnesium 1.8 Total Bilirubin 0.5 AST 25 Alkaline Phosphatase 86 Total Protein 6.2 L Albumin 2.9 L Urine Color YELLOW Urine Appearance SLIGHTLY-CLOUDY Urine pH 6.0 Ur Specific [place] 1.013 Urine Protein 30 H Urine Glucose (UA) NEGATIVE Urine Ketones NEGATIVE Urine Blood NEGATIVE Urine Nitrite NEGATIVE Ur Leukocyte Esterase NEGATIVE Urine WBC (Auto) 5 Urine RBC (Auto) 0 12/06/19 15:50 Troponin I 0.027 Impressions: Chest X-Ray 12/06/19 14:58 IMPRESSION: Right middle lobe collapse. Differential considerations are broad to include middle lobe syndrome, mucous plug, foreign body aspiration, bronchogenic carcinoma, etc. Status: Image reviewed by me Assessment & Plan - Diagnosis (1) Pneumonia Qualifiers: Pneumonia type: due to unspecified organism Laterality: right Lung location: middle lobe of lung Qualified Code(s): J18.9 - Pneumonia, unspecified organism Is this a current diagnosis for this admission?: Yes Plan: Likely a postobstructive pneumonia secondary to the metastasis, agree with current antibiotic approach. (2) Urothelial carcinoma of bladder Is this a current diagnosis for this admission?: Yes Plan: Stage IV urothelial carcinoma with lung metastasis, all treatment will be on hold for at least 2 weeks. She will need to get better from the pneumonia and we will have to decide on whether she is appropriate for further therapy thereafter. - Time Time Spent: Greater than 70 Minutes Disposition: She will probably need 1 to 3 days of IV antibiotics, hopefully should improve symptomatically by then, we will follow peripherally for now. - Inpatient Certification Based on my medical assessment, after consideration of the patient's comorbidities, presenting symptoms, or acuity I expect that the services needed warrant INPATIENT care.: Yes I certify that my determination is in accordance with my understanding of Medicare's requirements for reasonable and necessary INPATIENT services [42 CFR 412.3e].: Yes Medical Necessity: Need for IV Antibiotics, Risk of Complication if Not Cared For in Hospital
[2019-12-07] MEDS: INSULIN LISPRO 100 UNIT/ML 3 ML VIAL SUBCUT SCH ×4 (07:40→21:25)
[2019-12-07] MEDS: IPRATROPIUM/ALBUTEROL 0.5-2.5 MG/3 ML AMPUL NEB SCH ×3 (08:27→21:16)
[2019-12-07] MEDS: GUAIFENESIN 600 MG TABLET.SA PO SCH ×2 (10:00→21:34)
--- NOTE | 2019-12-07 11:14 | PDOC PROGRESS REPORT ---
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 Patient was given Z-Dorian by PCP with no improvement of symptoms. Patient denies any fever, fatigue, shortness of breath, chills, nausea, vomiting, diarrhea, constipation, urinary symptoms, sick contact, recent travel, contact with anybody with recent overseas travel. Patient recently diagnosed with right lung cancer, followed by Dr. Hernandez, currently on chemotherapy, last chemotherapy last Saturday, stating she had this cough before receiving her latest chemotherapy. In ED was noted to be hypoxic, tachycardic, tachypnea, chest x-ray positive for right middle lobe collapse, differential pneumonia, mucous plugging or aspiration. Hospital was consulted for admission. Reason For Visit: PNEUMONIA Physical Exam Vital Signs: Temp Pulse Resp BP Pulse Ox 99.4 F 100 16 157/75 H 82 L 12/07/19 08:15 12/07/19 08:27 12/07/19 08:27 12/07/19 08:15 12/07/19 08:27 Intake & Output 12/06/19 12/07/19 12/08/19 06:59 06:59 06:59 Intake Total 392 Output Total 1000 Balance -608 Weight 42.1 kg General appearance: PRESENT: no acute distress, thin Head exam: PRESENT: atraumatic, normocephalic Respiratory exam: PRESENT: clear to auscultation nikhil. ABSENT: rales, rhonchi, wheezes Cardiovascular exam: PRESENT: RRR. ABSENT: diastolic murmur, rubs, systolic murmur GI/Abdominal exam: PRESENT: normal bowel sounds, soft. ABSENT: distended, guarding, mass, organolmegaly, rebound, tenderness Neurological exam: PRESENT: alert, awake, oriented to person, oriented to place, oriented to time, oriented to situation, CN II-XII grossly intact. ABSENT: motor sensory deficit Results Laboratory Results: 12/07/19 05:30 12/07/19 05:30 12/06/19 12/06/19 12/06/19 15:50 15:50 15:50 WBC 6.4 RBC 2.93 L Hgb 9.3 L Hct 27.8 L MCV 95 MCH 31.6 MCHC 33.4 RDW 18.2 H Plt Count 378 Seg Neutrophils % Not Reportable Sodium 134.1 L Potassium 4.4 Chloride 98 Carbon Dioxide 26 Anion Gap 10 BUN 30 H Creatinine 1.32 H Est GFR ( Amer) 47 L Glucose 114 H Lactic Acid 1.3 Calcium 9.3 Magnesium Total Bilirubin 0.8 AST 33 Alkaline Phosphatase 98 Total Protein 6.6 Albumin 3.2 L Urine Color Urine Appearance Urine pH Ur Specific [place] Urine Protein Urine Glucose (UA) Urine Ketones Urine Blood Urine Nitrite Ur Leukocyte Esterase Urine WBC (Auto) Urine RBC (Auto) 12/06/19 12/07/19 12/07/19 20:15 05:30 05:30 WBC 5.2 RBC 2.83 L Hgb 9.2 L Hct 26.8 L MCV 95 MCH 32.6 MCHC 34.5 RDW 18.1 H Plt Count 369 Seg Neutrophils % Not Reportable Sodium 137.2 Potassium 4.2 Chloride 101 Carbon Dioxide 27 Anion Gap 9 BUN 24 H Creatinine 1.22 Est GFR ( Amer) 51 L Glucose 105 Lactic Acid Calcium 9.0 Magnesium 1.8 Total Bilirubin 0.5 AST 25 Alkaline Phosphatase 86 Total Protein 6.2 L Albumin 2.9 L Urine Color YELLOW Urine Appearance SLIGHTLY-CLOUDY Urine pH 6.0 Ur Specific [place] 1.013 Urine Protein 30 H Urine Glucose (UA) NEGATIVE Urine Ketones NEGATIVE Urine Blood NEGATIVE Urine Nitrite NEGATIVE Ur Leukocyte Esterase NEGATIVE Urine WBC (Auto) 5 Urine RBC (Auto) 0 12/06/19 15:50 Troponin I 0.027 Impressions: Chest X-Ray 12/06/19 14:58 IMPRESSION: Right middle lobe collapse. Differential considerations are broad to include middle lobe syndrome, mucous plug, foreign body aspiration, bronchogenic carcinoma, etc. Assessment and Plan - Diagnosis (1) Acute respiratory failure with hypoxia Is this a current diagnosis for this admission?: Yes Plan: Likely due to underlying pneumonia. SPO2 80s on RA on admission. Denies any fever or chills. No leukocytosis. Chest x-ray possible atelectasis or pneumonia. Admit to telemetry, empiric broad-spectrum IV antibiotics, sputum culture, blood culture, incentive spirometry, flutter valve, pulmonary toileting. Influenza A/B both negative. (2) CKD (chronic kidney disease) Qualifiers: Chronic kidney disease stage: stage 2 (mild) Qualified Code(s): N18.2 - Chronic kidney disease, stage 2 (mild) Is this a current diagnosis for this admission?: Yes Plan: Nonoliguric. Electrolytes WNL. Euvolemic. Monitor volume status and electrolytes. Replace as needed. Avoid nephrotoxic meds. Outpatient PCP and nephrology follow-up. (3) Pneumonia Qualifiers: Pneumonia type: due to unspecified organism Laterality: right Lung location: middle lobe of lung Qualified Code(s): J18.9 - Pneumonia, unspe cified organism Is this a current diagnosis for this admission?: Yes Plan: Most likely community-acquired caused by gram-positive cocci/rods including Streptococcus pneumonia. Plan as per #1. (4) Hypertension Is this a current diagnosis for this admission?: Yes Plan: Euvolemic. Normotensive. Restart home meds. Adjust meds as needed. Outpatient PCP follow-up. (5) Hyperlipidemia Is this a current diagnosis for this admission?: Yes Plan: Restart home meds. (6) Tobacco abuse Is this a current diagnosis for this admission?: Yes Plan: Counseled on quitting. NicoDerm patch will be provided. (7) Diabetes Qualifiers: Diabetes mellitus type: type 2 Is this a current diagnosis for this admission?: Yes Plan: Diabetic diet. Sliding scale, pre-meal and basal insulin. Accu-Chek Hypoglycemia protocol. Adjust dosage as needed. 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
[2019-12-07] MEDS: DOCUSATE SODIUM 100 MG/10 ML UDC PO SCH (11:19)
[2019-12-07] MEDS: ACETAMINOPHEN 325 MG TABLET PO PRN ×2 (17:47→21:35)
[2019-12-07] MEDS: METOPROLOL TARTRATE 50 MG TABLET PO SCH ×2 (17:48→21:34)
[2019-12-07] MEDS: CEFTRIAXONE 1 GM/D5W RTU 1 GM/50 ML RTUPB IV SCH (17:55)
[2019-12-07] MEDS: TAMSULOSIN HCL 0.4 MG CAP.SR.24H PO SCH (17:58)
[2019-12-07] MEDS ORDERED: MEGESTROL ACETATE SUSP 400 MG/10 ML UDCUP PO SCH (18:00)
[2019-12-07] MEDS: ATORVASTATIN CALCIUM 80 MG TABLET PO SCH (21:34)
[2019-12-07] MEDS: GABAPENTIN 300 MG CAPSULE PO SCH (21:34)
[2019-12-08] MEDS: HEPARIN SOD (PORCINE) 5,000 UNIT/ML 1 ML VIAL SUBCUT SCH ×3 (05:47→21:30)
[2019-12-08] MEDS: PANTOPRAZOLE SODIUM 40 MG TABLET.DR PO SCH ×2 (05:59→16:56)
[2019-12-08 06:21] LABS: HEMATOCRIT 26.3 % (36.0-47.0); HEMOGLOBIN 9.1 g/dL (12.0-15.5); MEAN CORPUSCULAR HEMOGLOBIN 32.7 pg (27.0-33.4); MEAN CORPUSCULAR HGB CONC 34.6 g/dL (32.0-36.0); MEAN CORPUSCULAR VOLUME 95 fl (80-97); PLATELET COUNT 397 10^3/uL (150-450); RED BLOOD COUNT 2.78 10^6/uL (3.72-5.28); RED CELL DISTRIBUTION WIDTH 17.8 % (11.5-14.0); WHITE BLOOD COUNT 5.5 10^3/uL (4.0-10.5)
[2019-12-08 06:38] LABS: ALBUMIN 2.5 g/dL (3.5-5.0); ALKALINE PHOSPHATASE 72 U/L (38-126); ASPARTATE AMINO TRANSFERASE 18 U/L (14-36); BILIRUBIN,DIRECT 0.1 mg/dL (0.0-0.4); BILIRUBIN,TOTAL 0.3 mg/dL (0.2-1.3); BLOOD UREA NITROGEN 18 mg/dL (7-20); CALCIUM 8.3 mg/dL (8.4-10.2); CARBON DIOXIDE 29 mmol/L (22-30); CHLORIDE 104 mmol/L (98-107); GLUCOSE 98 mg/dL (75-110); POTASSIUM 4.1 mmol/L (3.6-5.0); TOTAL PROTEIN 5.3 g/dL (6.3-8.2)
[2019-12-08 06:48] LABS: ANION GAP 5 (5-19)
[2019-12-08] MEDS: INSULIN LISPRO 100 UNIT/ML 3 ML VIAL SUBCUT SCH ×4 (07:49→22:00)
[2019-12-08] MEDS: OXYCODONE-ACETAMINOPHEN 5-325 MG TABLET PO PRN (08:06)
[2019-12-08] MEDS: IPRATROPIUM/ALBUTEROL 0.5-2.5 MG/3 ML AMPUL NEB SCH ×3 (08:37→20:41)
[2019-12-08] MEDS: MEGESTROL ACETATE SUSP 400 MG/10 ML UDCUP PO SCH (09:38)
[2019-12-08] MEDS: DOCUSATE SODIUM 100 MG/10 ML UDC PO SCH (09:38)
[2019-12-08] MEDS: TAMSULOSIN HCL 0.4 MG CAP.SR.24H PO SCH (09:39)
[2019-12-08] MEDS: METOPROLOL TARTRATE 50 MG TABLET PO SCH ×2 (09:39→22:03)
[2019-12-08] MEDS: GUAIFENESIN 600 MG TABLET.SA PO SCH ×2 (09:40→22:03)
[2019-12-08] MEDS: GABAPENTIN 300 MG CAPSULE PO SCH ×2 (09:40→22:03)
--- NOTE | 2019-12-08 10:24 | PDOC PROGRESS REPORT ---
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 Patient was given Z-Dorian by PCP with no improvement of symptoms. Patient denies any fever, fatigue, shortness of breath, chills, nausea, vomiting, diarrhea, constipation, urinary symptoms, sick contact, recent travel, contact with anybody with recent overseas travel. Patient recently diagnosed with right lung cancer, followed by Dr. Hernandez, currently on chemotherapy, last chemotherapy last Saturday, stating she had this cough before receiving her latest chemotherapy. In ED was noted to be hypoxic, tachycardic, tachypnea, chest x-ray positive for right middle lobe collapse, differential pneumonia, mucous plugging or aspiration. Hospital was consulted for admission. 12/08/2019. No acute events overnight. Complaining of pleuritic right chest pain, persistent productive cough, denies any fever, chills, nausea, vomiting, diarrhea, constipation or any urinary symptoms. Reason For Visit: PNEUMONIA Physical Exam Vital Signs: Temp Pulse Resp BP Pulse Ox 97.4 F 89 18 161/76 H 90 L 12/08/19 07:00 12/08/19 07:00 12/08/19 07:00 12/08/19 07:00 12/08/19 07:00 Intake & Output 12/07/19 12/08/19 12/09/19 06:59 06:59 06:59 Intake Total 392 1870 Output Total 1000 Balance -608 1870 Weight 42.1 kg 44.4 kg General appearance: PRESENT: no acute distress, thin Head exam: PRESENT: atraumatic, normocephalic Respiratory exam: PRESENT: clear to auscultation nikhil. ABSENT: rales, rhonchi, wheezes GI/Abdominal exam: PRESENT: normal bowel sounds, soft. ABSENT: distended, guarding, mass, organolmegaly, rebound, tenderness Neurological exam: PRESENT: alert, awake, oriented to person, oriented to place, oriented to time, oriented to situation, CN II-XII grossly intact. ABSENT: motor sensory deficit Results Laboratory Results: 12/08/19 06:10 12/08/19 06:10 12/08/19 12/08/19 06:10 06:10 WBC 5.5 RBC 2.78 L Hgb 9.1 L Hct 26.3 L MCV 95 MCH 32.7 MCHC 34.6 RDW 17.8 H Plt Count 397 Sodium 136.9 L Potassium 4.1 Chloride 104 Carbon Dioxide 29 Anion Gap 5 BUN 18 Creatinine 1.07 Est GFR ( Amer) > 60 Glucose 98 Calcium 8.3 L Total Bilirubin 0.3 AST 18 Alkaline Phosphatase 72 Total Protein 5.3 L Albumin 2.5 L 12/06/19 15:50 Troponin I 0.027 Impressions: Chest X-Ray 12/06/19 14:58 IMPRESSION: Right middle lobe collapse. Differential considerations are broad to include middle lobe syndrome, mucous plug, foreign body aspiration, bronchogenic carcinoma, etc. Assessment and Plan - Diagnosis (1) Acute respiratory failure with hypoxia Is this a current diagnosis for this admission?: Yes Plan: Likely due to underlying pneumonia. SPO2 80s on RA on admission. Denies any fever or chills. No leukocytosis. Chest x-ray possible atelectasis or pneumonia. Continue empiric broad-spectrum IV antibiotics, sputum culture, blood culture, incentive spirometry, flutter valve, pulmonary toileting. Influenza A/B both negative. (2) CKD (chronic kidney disease) Qualifiers: Chronic kidney disease stage: stage 2 (mild) Qualified Code(s): N18.2 - Chronic kidney disease, stage 2 (mild) Is this a current diagnosis for this admission?: Yes Plan: Nonoliguric. Electrolytes WNL. Euvolemic. Monitor volume status and electrolytes. Replace as needed. Avoid nephrotoxic meds. Outpatient PCP and nephrology follow-up. (3) Pneumonia Qualifiers: Pneumonia type: due to unspecified organism Laterality: right Lung location: middle lobe of lung Qualified Code(s): J18.9 - Pneumonia, unspecified organism Is this a current diagnosis for this admission?: Yes Plan: Most likely community-acquired caused by gram-positive cocci/rods including Streptococcus pneumonia. Plan as per #1. (4) Hypertension Is this a current diagnosis for this admission?: Yes Plan: Euvolemic. Normotensive. Restart home meds. Adjust meds as needed. Outpatient PCP follow-up. (5) Hyperlipidemia Is this a current diagnosis for this admission?: Yes Plan: Restart home meds. (6) Tobacco abuse Is this a current diagnosis for this admission?: Yes Plan: Counseled on quitting. NicoDerm patch will be provided. (7) Diabetes Qualifiers: Diabetes mellitus type: type 2 Is this a current diagnosis for this admission?: Yes Plan: Diabetic diet. Sliding scale, pre-meal and basal insulin. Accu-Chek Hypoglycemia protocol. Adjust dosage as needed. 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 (9) Cachexia Is this a current diagnosis for this admission?: Yes Plan: Due to underlying metastatic disease. Patient stating that she does have an appetite but does not like the food here at the hospital. Continue Megace. Dietitian consulted. Encourage p.o. intake.
[2019-12-08] MEDS: ACETAMINOPHEN 325 MG TABLET PO PRN (16:56)
[2019-12-08] MEDS: CEFTRIAXONE 1 GM/D5W RTU 1 GM/50 ML RTUPB IV SCH (17:45)
[2019-12-08] MEDS: ATORVASTATIN CALCIUM 80 MG TABLET PO SCH (22:02)
[2019-12-09] MEDS: HEPARIN SOD (PORCINE) 5,000 UNIT/ML 1 ML VIAL SUBCUT SCH ×3 (05:47→21:57)
[2019-12-09] MEDS: PANTOPRAZOLE SODIUM 40 MG TABLET.DR PO SCH ×2 (05:48→18:11)
[2019-12-09 07:01] LABS: ANION GAP 6 (5-19); BLOOD UREA NITROGEN 19 mg/dL (7-20); CALCIUM 8.9 mg/dL (8.4-10.2); CARBON DIOXIDE 28 mmol/L (22-30); CHLORIDE 103 mmol/L (98-107); GLUCOSE 103 mg/dL (75-110); POTASSIUM 4.1 mmol/L (3.6-5.0)
[2019-12-09 07:17] LABS: ABSOLUTE LYMPHOCYTES (AUTO) 0.8 10^3/uL (0.5-4.7); ABSOLUTE MONOCYTES (AUTO) 1.1 10^3/uL (0.1-1.4); ABSOLUTE NEUT (AUTO) 4.6 10^3/uL (1.7-8.2); BASOPHILS % (AUTO) 0.3 % (0-2); EOSINOPHILS % (AUTO) 0.4 % (0-6); HEMATOCRIT 25.9 % (36.0-47.0); HEMOGLOBIN 8.9 g/dL (12.0-15.5); LYMPHOCYTES % (AUTO) 12.8 % (13-45); MEAN CORPUSCULAR HEMOGLOBIN 32.5 pg (27.0-33.4); MEAN CORPUSCULAR HGB CONC 34.5 g/dL (32.0-36.0); MEAN CORPUSCULAR VOLUME 94 fl (80-97); MONOCYTES % (AUTO) 16.4 % (3-13); RED BLOOD COUNT 2.75 10^6/uL (3.72-5.28); RED CELL DISTRIBUTION WIDTH 17.8 % (11.5-14.0); SEGMENTED NEUTROPHILS % (AUTO) 70.1 % (42-78); TOTAL CELLS COUNTED % (AUTO) 100 %; WHITE BLOOD COUNT 6.5 10^3/uL (4.0-10.5)
[2019-12-09] MEDS: INSULIN LISPRO 100 UNIT/ML 3 ML VIAL SUBCUT SCH ×4 (07:29→21:57)
[2019-12-09 07:48] LABS: PLATELET COUNT 407 10^3/uL (150-450)
[2019-12-09] MEDS: IPRATROPIUM/ALBUTEROL 0.5-2.5 MG/3 ML AMPUL NEB SCH ×3 (08:44→21:07)
[2019-12-09] MEDS: DOCUSATE SODIUM 100 MG/10 ML UDC PO SCH (09:41)
[2019-12-09] MEDS: GUAIFENESIN 600 MG TABLET.SA PO SCH ×2 (09:42→22:16)
[2019-12-09] MEDS: GABAPENTIN 300 MG CAPSULE PO SCH ×2 (09:42→22:17)
[2019-12-09] MEDS: OXYCODONE-ACETAMINOPHEN 5-325 MG TABLET PO PRN ×2 (09:42→22:17)
[2019-12-09] MEDS: MEGESTROL ACETATE SUSP 400 MG/10 ML UDCUP PO SCH (09:42)
[2019-12-09] MEDS: TAMSULOSIN HCL 0.4 MG CAP.SR.24H PO SCH (09:42)
[2019-12-09] MEDS: METOPROLOL TARTRATE 50 MG TABLET PO SCH ×2 (09:42→22:16)
--- NOTE | 2019-12-09 11:52 | PDOC PROGRESS REPORT ---
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 Patient was given Z-Dorian by PCP with no improvement of symptoms. Patient denies any fever, fatigue, shortness of breath, chills, nausea, vomiting, diarrhea, constipation, urinary symptoms, sick contact, recent travel, contact with anybody with recent overseas travel. Patient recently diagnosed with right lung cancer, followed by Dr. Hernandez, currently on chemotherapy, last chemotherapy last Saturday, stating she had this cough before receiving her latest chemotherapy. In ED was noted to be hypoxic, tachycardic, tachypnea, chest x-ray positive for right middle lobe collapse, differential pneumonia, mucous plugging or aspiration. Hospital was consulted for admission. 12/08/2019. No acute events overnight. Complaining of pleuritic right chest pain, persistent productive cough, denies any fever, chills, nausea, vomiting, diarrhea, constipation or any urinary symptoms. 12/09/2019. No acute events overnight. Right-sided pleuritic chest pain and cough improving, after receiving apparent distress. Denies any fever, chills, nausea, vomiting, diarrhea, constipation. Appetite improving. Patient is still hypoxic on room air PO2 drops to low 80s. Reason For Visit: PNEUMONIA Physical Exam Vital Signs: Temp Pulse Resp BP Pulse Ox 98.7 F 66 16 156/66 H 92 12/09/19 07:34 12/09/19 08:44 12/09/19 08:44 12/09/19 07:34 12/09/19 08:44 Intake & Output 12/08/19 12/09/19 12/10/19 06:59 06:59 06:59 Intake Total 1870 890 Output Total 600 Balance 1870 290 Weight 44.4 kg 45.4 kg General appearance: PRESENT: no acute distress, thin Head exam: PRESENT: atraumatic, normocephalic Respiratory exam: PRESENT: clear to auscultation nikhil. ABSENT: rales, rhonchi, wheezes Cardiovascular exam: PRESENT: RRR. ABSENT: diastolic murmur, rubs, systolic murmur Vascular exam: PRESENT: normal capillary refill Neurological exam: PRESENT: alert, awake, oriented to person, oriented to place, oriented to time, oriented to situation, CN II-XII grossly intact. ABSENT: motor sensory deficit Results Laboratory Results: 12/09/19 06:31 12/09/19 06:31 12/09/19 12/09/19 06:31 06:31 WBC 6.5 RBC 2.75 L Hgb 8.9 L Hct 25.9 L MCV 94 MCH 32.5 MCHC 34.5 RDW 17.8 H Plt Count 407 Seg Neutrophils % 70.1 Sodium 137.1 Potassium 4.1 Chloride 103 Carbon Dioxide 28 Anion Gap 6 BUN 19 Creatinine 1.11 Est GFR ( Amer) 57 L Glucose 103 Calcium 8.9 12/06/19 15:50 Troponin I 0.027 Impressions: Chest X-Ray 12/06/19 14:58 IMPRESSION: Right middle lobe collapse. Differential considerations are broad to include middle lobe syndrome, mucous plug, foreign body aspiration, bronchogenic carcinoma, etc. Assessment and Plan - Diagnosis (1) Acute respiratory failure with hypoxia Is this a current diagnosis for this admission?: Yes Plan: SPO2 dropped to 80s on RA. Depending on 4 L nasal cannula. Likely due to underlying pneumonia. SPO2 80s on RA on admission. Denies any fever or chills. No leukocytosis. Chest x-ray possible atelectasis or pneumonia. Continue empiric broad-spectrum IV antibiotics, sputum culture, blood culture, incentive spirometry, flutter valve, pulmonary toileting. Influenza A/B both negative. Consult discharge planning for home oxygen arrangement. (2) CKD (chronic kidney disease) Qualifiers: Chronic kidney disease stage: stage 2 (mild) Qualified Code(s): N18.2 - Chronic kidney disease, stage 2 (mild) Is this a current diagnosis for this admission?: Yes Plan: Nonoliguric. Electrolytes WNL. Euvolemic. Monitor volume status and electrolytes. Replace as needed. Avoid nephrotoxic meds. Outpatient PCP and nephrology follow-up. (3) Pneumonia Qualifiers: Pneumonia type: due to unspecified organism Laterality: right Lung location: middle lobe of lung Qualified Code(s): J18.9 - Pneumonia, unspecified organism Is this a current diagnosis for this admission?: Yes Plan: Most likely community-acquired caused by gram-positive cocci/rods including Streptococcus pneumonia. Plan as per #1. (4) Hypertension Is this a current diagnosis for this admission?: Yes Plan: Euvolemic. Normotensive. Restart home meds. Adjust meds as needed. Outpatient PCP follow-up. (5) Hyperlipidemia Is this a current diagnosis for this admission?: Yes Plan: Restart home meds. (6) Tobacco abuse Is this a current diagnosis for this admission?: Yes Plan: Counseled on quitting. NicoDerm patch will be provided. (7) Diabetes Qualifiers: Diabetes mellitus type: type 2 Is this a current diagnosis for this admission?: Yes Plan: Diabetic diet. Sliding scale, pre-meal and basal insulin. Accu-Chek Hypoglycemia protocol. Adjust dosage as needed. 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 (9) Cachexia Is this a current diagnosis for this admission?: Yes Plan: Due to underlying metastatic disease. Patient stating that she does have an appetite but does not like the food here at the hospital. Continue Megace. Dietitian consulted. Encourage p.o. intake.
[2019-12-09] MEDS: CEFTRIAXONE 1 GM/D5W RTU 1 GM/50 ML RTUPB IV SCH (18:11)
[2019-12-09] MEDS: ATORVASTATIN CALCIUM 80 MG TABLET PO SCH (22:16)
[2019-12-09] MEDS: METHYLPREDNISOLONE INJ 40 MG/1 ML SDV IV SCH (22:17)
[2019-12-10] MEDS: HEPARIN SOD (PORCINE) 5,000 UNIT/ML 1 ML VIAL SUBCUT SCH (06:29)
[2019-12-10] MEDS: METHYLPREDNISOLONE INJ 40 MG/1 ML SDV IV SCH (06:33)
[2019-12-10] MEDS: PANTOPRAZOLE SODIUM 40 MG TABLET.DR PO SCH (06:33)
[2019-12-10] MEDS: INSULIN LISPRO 100 UNIT/ML 3 ML VIAL SUBCUT SCH (07:48)
[2019-12-10 08:27] LABS: HEMATOCRIT 26.8 % (36.0-47.0); HEMOGLOBIN 9.4 g/dL (12.0-15.5); MEAN CORPUSCULAR HEMOGLOBIN 33.1 pg (27.0-33.4); MEAN CORPUSCULAR HGB CONC 35.1 g/dL (32.0-36.0); MEAN CORPUSCULAR VOLUME 94 fl (80-97); PLATELET COUNT 522 10^3/uL (150-450); RED BLOOD COUNT 2.84 10^6/uL (3.72-5.28); RED CELL DISTRIBUTION WIDTH 17.9 % (11.5-14.0); WHITE BLOOD COUNT 8.4 10^3/uL (4.0-10.5)
[2019-12-10] MEDS: IPRATROPIUM/ALBUTEROL 0.5-2.5 MG/3 ML AMPUL NEB SCH (09:02)
[2019-12-10 10:02] VITALS: BP 161/76
[2019-12-10] MEDS: GABAPENTIN 300 MG CAPSULE PO SCH (10:02)
[2019-12-10] MEDS: TAMSULOSIN HCL 0.4 MG CAP.SR.24H PO SCH (10:02)
[2019-12-10] MEDS: GUAIFENESIN 600 MG TABLET.SA PO SCH (10:02)
[2019-12-10] MEDS: DOCUSATE SODIUM 100 MG/10 ML UDC PO SCH (10:02)
[2019-12-10] MEDS: METOPROLOL TARTRATE 50 MG TABLET PO SCH (10:02)
[2019-12-10] MEDS: MEGESTROL ACETATE SUSP 400 MG/10 ML UDCUP PO SCH (10:02)
--- NOTE | 2019-12-13 14:35 | PDOC DISCHARGE SUMMARY ---
Impression - Admit/DC Date/PCP Admission Date/Primary Care Provider: 12/06/19 18:41 ALEC PRATHER MD Discharge Date: 12/10/19 - Discharge Diagnosis (1) Acute respiratory failure with hypoxia Is this a current diagnosis for this admission?: Yes (2) CKD (chronic kidney disease) Is this a current diagnosis for this admission?: Yes (3) Pneumonia Is this a current diagnosis for this admission?: Yes (4) Hypertension Is this a current diagnosis for this admission?: Yes (5) Hyperlipidemia Is this a current diagnosis for this admission?: Yes (6) Tobacco abuse Is this a current diagnosis for this admission?: Yes (7) Diabetes Is this a current diagnosis for this admission?: Yes (8) Urothelial carcinoma of bladder Is this a current diagnosis for this admission?: Yes (9) Cachexia Is this a current diagnosis for this admission?: Yes - Additional Information Resuscitation Status: Do Not Resuscitate Discharge Diet: Regular Discharge Activity: Activity As Tolerated Referrals: ALEC PRATHER MD [Primary Care Provider] - 12/14/19 2:45 pm DENIS SALGADO MD [ACTIVE STAFF] - 12/24/19 10:30 am Prescriptions: Ciprofloxacin HCl [Cipro] 500 mg PO BID 3 Days #6 tablet Prednisone [Deltasone 20 mg Tablet] 40 mg PO DAILY 4 Days #8 tablet Fluticasone/Umeclidin/Vilanter [Trelegy 100-62.5-25 Mcg Ellipta 14 Dose/Dpi] 1 each IH DAILY 30 Days #1 inhaler Albuterol Sulfate [Ventolin Hfa 8 gm Mdi (1 Mdi/ER Disp)] 2 puff IH Q6 30 Days #1 inhaler Home Medications: Atorvastatin Calcium [Lipitor 80 mg Tablet] 80 mg PO QHS 03/03/18 Gabapentin [Neurontin 300 mg Capsule] 300 mg PO Q12 03/03/18 Metformin HCl [Glucophage 500 mg Tablet] 500 mg PO BID 03/03/18 Omeprazole 20 mg PO DAILY 03/03/18 Tamsulosin HCl [Flomax 0.4 mg Cap.sr] 0.4 mg PO DAILY #7 cap.sr.24h 02/19/19 Megestrol Acetate [Megace Naima 400 mg/10 ml Udcup] 400 mg PO DAILY 12/07/19 Metoprolol Tartrate [Lopressor 50 mg Tablet] 50 mg PO Q12 12/07/19 Albuterol Sulfate [Ventolin Hfa 8 gm Mdi (1 Mdi/ER Disp)] 2 puff IH Q6 30 Days #1 inhaler 12/10/19 Ciprofloxacin HCl [Cipro] 500 mg PO BID 3 Days #6 tablet 12/10/19 Fluticasone/Umeclidin/Vilanter [Trelegy 100-62.5-25 Mcg Ellipta 14 Dose/Dpi] 1 each IH DAILY 30 Days #1 inhaler 12/10/19 Prednisone [Deltasone 20 mg Tablet] 40 mg PO DAILY 4 Days #8 tablet 12/10/19 History of Present Illiness History of Present Illness: JERILYN MCCARTY is a 79 year old female past medical history of COPD, diabetes, 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 Patient was given Z-Dorian by PCP with no improvement of symptoms. Patient denies any fever, fatigue, shortness of breath, chills, nausea, vomiti ng, diarrhea, constipation, urinary symptoms, sick contact, recent travel, contact with anybody with recent overseas travel. Patient recently diagnosed with right lung cancer, followed by Dr. Prather, currently on chemotherapy, last chemotherapy last Saturday, stating she had this cough before receiving her latest chemotherapy. In ED was noted to be hypoxic, tachycardic, tachypnea, chest x-ray positive for right middle lobe collapse, differential pneumonia, mucous plugging or aspiration. Hospital was consulted for admission. Hospital Course Hospital Course: (1) Acute respiratory failure with hypoxia Moderate improvement. SPO2 WNL on 2 L nasal cannula. Likely due to underlying pneumonia. SPO2 80s on RA on admission. Denied any fever or chills. No leukocytosis. Chest x-ray possible atelectasis or pneumonia. Was a started on empiric broad-spectrum IV antibiotics, sputum culture, blood culture, incentive spirometry, flutter valve, pulmonary toileting. Influenza A/B both negative. Consult discharge planning for home oxygen arrangement. Discharged on p.o. antibiotics, p.o. prednisone, LABA, LABA, ICS. Supplemental oxygen. (2) CKD (chronic kidney disease) Nonoliguric. Electrolytes WNL. Euvolemic. Monitor volume status and electrolytes. Replace as needed. (3) Pneumonia Most likely community-acquired caused by gram-positive cocci/rods including Streptococcus pneumonia. Plan as per #1. (4) Hypertension Euvolemic. Normotensive. Restarted home meds. Adjust meds as needed. Outpatient PCP follow-up. (5) Hyperlipidemia Restarted home meds. (6) Tobacco abuse Counseled on quitting. NicoDerm patch will be provided. (7) Diabetes Diabetic diet. Sliding scale, pre-meal and basal insulin. Accu-Chek Hypoglycemia protocol. Adjust dosage as needed. 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 (9) Cachexia Due to underlying metastatic disease. Patient stating that she does have an appetite but does not like the food here at the hospital. Continued Megace. Dietitian consulted. Encouraged p.o. intake. Physical Exam Vital Signs: Temp Pulse Resp BP Pulse Ox 98.5 F 65 16 161/76 H 96 12/10/19 09:10 12/10/19 09:10 12/10/19 09:10 12/10/19 09:10 12/10/19 09:10 General appearance: PRESENT: no acute distress, thin Head exam: PRESENT: atraumatic, normocephalic Respiratory exam: PRESENT: clear to auscultation inkhil. ABSENT: rales, rhonchi, wheezes Cardiovascular exam: PRESENT: RRR. ABSENT: diastolic murmur, rubs, systolic murmur GI/Abdominal exam: PRESENT: normal bowel sounds, soft. ABSENT: distended, guarding, mass, organolmegaly, rebound, tenderness Neurological exam: PRESENT: alert, awake, oriented to person, oriented to place, oriented to time, oriented to situation, CN II-XII grossly intact. ABSENT: motor sensory deficit Results Laboratory Results: WBC 8.4 10^3/uL (4.0-10.5) 12/10/19 08:16 RBC 2.84 10^6/uL (3.72-5.28) L 12/10/19 08:16 Hgb 9.4 g/dL (12.0-15.5) L 12/10/19 08:16 Hct 26.8 % (36.0-47.0) L 12/10/19 08:16 MCV 94 fl (80-97) 12/10/19 08:16 MCH 33.1 pg (27.0-33.4) 12/10/19 08:16 MCHC 35.1 g/dL (32.0-36.0) 12/10/19 08:16 RDW 17.9 % (11.5-14.0) H 12/10/19 08:16 Plt Count 522 10^3/uL (150-450) H 12/10/19 08:16 Lymph % (Auto) 12.8 % (13-45) L 12/09/19 06:31 [place] % (Auto) 16.4 % (3-13) H 12/09/19 06:31 Eos % (Auto) 0.4 % (0-6) 12/09/19 06:31 Baso % (Auto) 0.3 % (0-2) 12/09/19 06:31 Absolute Neuts (auto) 4.6 10^3/uL (1.7-8.2) 12/09/19 06:31 Absolute Lymphs (auto) 0.8 10^3/uL (0.5-4.7) 12/09/19 06:31 Absolute Monos (auto) 1.1 10^3/uL (0.1-1.4) 12/09/19 06:31 Absolute Eos (auto) 0.0 10^3/uL (0.0-0.6) 12/09/19 06:31 Absolute Basos (auto) 0.0 10^3/uL (0.0-0.2) 12/09/19 06:31 Total Counted 100 12/07/19 05:30 Seg Neuts % (Manual) 58 % (42-78) 12/07/19 05:30 Band Neutrophils % 1 % (3-5) L 12/07/19 05:30 Seg Neutrophils % 70.1 % (42-78) 12/09/19 06:31 Lymphocytes % (Manual) 19 % (13-45) 12/07/19 05:30 Monocytes % (Manual) 21 % (3-13) H 12/07/19 05:30 Eosinophils % (Manual) 1 % (0-6) 12/07/19 05:30 Basophils % (Manual) 0 % (0-2) 12/07/19 05:30 Abs Neuts (Manual) 3.1 10^3/uL (1.7-8.2) 12/07/19 05:30 Abs Lymphs (Manual) 1.0 10^3/uL (0.5-4.7) 12/07/19 05:30 Abs Monocytes (Manual) 1.1 10^3/uL (0.1-1.4) 12/07/19 05:30 Absolute Eos (Manual) 0.1 10^3/uL (0.0-0.6) 12/07/19 05:30 Abs Basophils (Manual) 0.0 10^3/uL (0.0-0.2) 12/07/19 05:30 Toxic Granulation 1+ 12/07/19 05:30 Clumped Platelets PRESENT 12/06/19 15:50 Platelet Comment ADEQUATE 12/07/19 05:30 Polychromasia SLIGHT 12/06/19 15:50 Poikilocytosis 1+ 12/07/19 05:30 Anisocytosis 1+ 12/07/19 05:30 Tear Drop Cells 1+ 12/07/19 05:30 Ovalocytes 1+ 12/07/19 05:30 Acanthocytes (Spur) 1+ 12/07/19 05:30 Sodium 137.1 mmol/L (137-145) 12/09/19 06:31 Potassium 4.1 mmol/L (3.6-5.0) 12/09/19 06:31 Chloride 103 mmol/L (98-107) 12/09/19 06:31 Carbon Dioxide 28 mmol/L (22-30) 12/09/19 06:31 Anion Gap 6 (5-19) 12/09/19 06:31 BUN 19 mg/dL (7-20) 12/09/19 06:31 Creatinine 1.11 mg/dL (0.52-1.25) 12/09/19 06:31 Est GFR ( Amer) 57 (>60) L 12/09/19 06:31 Est GFR (MDRD) Non-Af 47 (>60) L 12/09/19 06:31 Glucose 103 mg/dL (75-110) 12/09/19 06:31 POC Glucose 185 mg/dL (70-110) H 12/10/19 11:52 Lactic Acid 1.3 mmol/L (0.7-2.1) 12/06/19 15:50 Calcium 8.9 mg/dL (8.4-10.2) 12/09/19 06:31 Magnesium 1.8 mg/dL (1.6-2.3) 12/07/19 05:30 Total Bilirubin 0.3 mg/dL (0.2-1.3) 12/08/19 06:10 Direct Bilirubin 0.1 mg/dL (0.0-0.4) 12/08/19 06:10 Neonat Total Bilirubin Not Reportable 12/08/19 06:10 Neonat Direct Bilirubin Not Reportable 12/08/19 06:10 Neonat Indirect Bili Not Reportable 12/08/19 06:10 AST 18 U/L (14-36) 12/08/19 06:10 ALT 13 U/L (<35) 12/08/19 06:10 Alkaline Phosphatase 72 U/L (38-126) 12/08/19 06:10 Troponin I 0.027 ng/mL 12/06/19 15:50 Total Protein 5.3 g/dL (6.3-8.2) L 12/08/19 06:10 Albumin 2.5 g/dL (3.5-5.0) L 12/08/19 06:10 Urine Color YELLOW 12/06/19 20:15 Urine Appearance SLIGHTLY-CLOUDY 12/06/19 20:15 Urine pH 6.0 (5.0-9.0) 12/06/19 20:15 Ur Specific [place] 1.013 12/06/19 20:15 Urine Protein 30 mg/dL (NEGATIVE) H 12/06/19 20:15 Urine Glucose (UA) NEGATIVE mg/dL (NEGATIVE) 12/06/19 20:15 Urine Ketones NEGATIVE mg/dL (NEGATIVE) 12/06/19 20:15 Urine Blood NEGATIVE (NEGATIVE) 12/06/19 20:15 Urine Nitrite NEGATIVE (NEGATIVE) 12/06/19 20:15 Urine Bilirubin NEGATIVE (NEGATIVE) 12/06/19 20:15 Urine Urobilinogen NEGATIVE mg/dL (<2.0) 12/06/19 20:15 Ur Leukocyte Esterase NEGATIVE (NEGATIVE) 12/06/19 20:15 Urine WBC (Auto) 5 /HPF 12/06/19 20:15 Urine RBC (Auto) 0 /HPF 12/06/19 20:15 U Hyaline Cast (Auto) 4 /LPF 12/06/19 20:15 Squamous Epi Cells Auto 6 /HPF 12/06/19 20:15 Urine Mucus (Auto) RARE /LPF 12/06/19 20:15 Urine Ascorbic Acid NEGATIVE (NEGATIVE) 12/06/19 20:15 Influenza A (Rapid) NEGATIVE (NEGATIVE) 12/06/19 17:58 Influenza B (Rapid) NEGATIVE (NEGATIVE) 12/06/19 17:58 12/06/19 15:50 Troponin I 0.027 Impressions: Chest X-Ray 12/06/19 14:58 IMPRESSION: Right middle lobe collapse. Differential considerations are broad to include middle lobe syndrome, mucous plug, foreign body aspiration, bronchogenic carcinoma, etc. Stroke Is this a Stroke Patient?: No Acute Heart Failure - Is this a Heart Failure Patient?: No
== END 2019-12-10 12:26 | disposition home or self-care (01) | DRG 193 ==
LOC: ER 14:35 → EH 18:41 → 4S 20:17
PROVIDERS: ADMIT Internal Medicine; ATTEND Internal Medicine
DX: J18.9 Pneumonia, unspecified organism (principal); J96.01 Acute respiratory failure with hypoxia; J44.0 Chronic obstructive pulmonary disease with (acute) lower respiratory infection; C78.01 Secondary malignant neoplasm of right lung; R64 Cachexia; Z68.1 Body mass index [BMI] 19.9 or less, adult; C67.9 Malignant neoplasm of bladder, unspecified; J44.9 Chronic obstructive pulmonary disease, unspecified; K21.9 Gastro-esophageal reflux disease without esophagitis; M19.90 Unspecified osteoarthritis, unspecified site; F32.9 Major depressive disorder, single episode, unspecified; E11.22 Type 2 diabetes mellitus with diabetic chronic kidney disease; E11.51 Type 2 diabetes mellitus with diabetic peripheral angiopathy without gangrene; N18.2 Chronic kidney disease, stage 2 (mild); Z90.49 Acquired absence of other specified parts of digestive tract; I12.9 Hypertensive chronic kidney disease with stage 1 through stage 4 chronic kidney disease, or unspecified chronic kidney disease; E78.5 Hyperlipidemia, unspecified; Z79.899 Other long term (current) drug therapy; Z79.84 Long term (current) use of oral hypoglycemic drugs; Z66 Do not resuscitate
CPT/HCPCS: 36415; 71046; 80048; 80053; 81001; 82962; 83605; 83735; 84484; 85025; 85027; 87040; 87804; 93005; 93010; 94640; 96365; 99291; J0696; J1642; J1815; J2920; J3490; J7030; J7620

== ENCOUNTER → 2020-01-27 | Outpatient (CLI) | payer MEDICARE ==
--- NOTE | 2020-01-27 12:19 | RADIOLOGY REPORT (SQ) ---
EXAM DESCRIPTION: CT ABD/PELVIS WITH IV ONLY IMAGES COMPLETED DATE/TIME: 01/27/2020 11:14 am REASON FOR STUDY: MALIGNANT NEOPLASM OF RIGHT URETER (C66.1) C66.1 MALIGNANT NEOPLASM OF RIGHT URET ER COMPARISON: 09/04/2019 TECHNIQUE: CT scan of the abdomen and pelvis performed using helical scanning technique with dynamic intravenous contrast injection. No oral contrast. Images reviewed with lung, soft tissue, and bone windows. Reconstructed coronal and sagittal MPR images reviewed. Delayed images for evaluation of the urinary system also acquired. All images stored on PACS. All CT scanners at this facility use dose modulation, iterative reconstruction, and/or weight based d osing when appropriate to reduce radiation dose to as low as reasonably achievable (ALARA). [facility]: Dose Right [facility]: CareDose [facility]: Dose Right [facility]: Teradose 4D [facility]: [employer] CONTRAST TYPE AND DOSE: contrast/concentration: Isovue 300.00 mg/ml; Total Contrast Delivered: 64.0 ml; Total Saline Delivered: 65.0 ml RENAL FUNCTION: Creatinine 1.2 RADIATION DOSE: . LIMITATIONS: None. FINDINGS: LOWER CHEST: See separate report of the CT of the chest. LIVER: Scattered subcentimeter hypodense hepatic lesions, likely cysts and stable. No new discrete h epatic mass. SPLEEN: Normal size. No focal lesions. PANCREAS: No masses. No significant calcifications. No adjacent inflammation or peripancreatic fluid collections. Pancreatic duct not dilated. GALLBLADDER: Surgically absent. ADRENAL GLANDS: Unchanged thickening of the bilateral adrenal glands. No discrete masses. RIGHT KIDNEY AND URETER: Stable to decreased size of the right upper pole renal hypodense lesion jaz uring 3.1 cm, previously 3.5 cm. Scattered nonobstructing stones. Right double-J ureteral stent in appropriate location. No hydronephrosis or hydroureter. LEFT KIDNEY AND URETER: No discrete solid mass. Cortical thinning and diffuse atrophy. No obstruct ing stones. Scattered vascular calcifications. No hydronephrosis or hydroureter. AORTA AND VESSELS: Aortoiliac atherosclerosis with aneurysmal dilation of the infrarenal abdominal ao rta measuring up to 3.7 cm, stable. There is significant mural thrombus along the anterolateral wall s. Significant calcification at the celiac, SMA and bilateral renal ostia. Evaluation luminal steno sis limited. RETROPERITONEUM: No discrete retroperitoneal mass, adenopathy or hemorrhage. BOWEL AND PERITONEAL CAVITY: No evidence of intestinal obstruction. Midline bowel containing hernia. Moderate formed stool throughout the colon. No focal bowel wall thickening. APPENDIX: Not clearly visualized. PELVIS: Double-J ureteral stent distal tip recurrent urinary bladder. No pelvic free fluid, adenopat hy or mass greater ABDOMINAL WALL: Midline hernia containing a loop of colon, similar to prior. No soft tissue mass. BONES: No acute bony abnormality. No discrete lytic or blastic osseous lesions. Lower lumbar spondy losis and facet arthropathy. OTHER: No other significant finding. IMPRESSION: 1. Continued decreased size of right upper pole hypodense renal lesion measuring 3.1 cm , previously 3.5 cm. 2. Stable right double-J ureteral stent with mild hydronephrosis compared to prior. Contrast noted within the urinary bladder. 3. No other evidence intra-abdominal/pelvic metastatic disease. 4. Stable abdominal aortic aneurysm measuring up to 3.7 cm. 5. Stable midline bowel containing hernia. No evidence of intestinal obstruction. TECHNICAL DOCUMENTATION: JOB ID: [id number] Quality ID # [id number]: Final reports with documentation of one or more dose reduction techniques (e.g., Au tomated exposure control, adjustment of the mA and/or kV according to patient size, use of iterative reconstruction technique) 2010 [employer]- All Rights Reserved Reading location - IP/workstation name: [email or web address]
--- NOTE | 2020-01-27 14:50 | RADIOLOGY REPORT (SQ) ---
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 Images reviewed with lung, soft tissue and bone windows. Reconstructed coronal and sagittal MPR and MIP images reviewed. All images stored on PACS. All CT scanners at this facility use dose modulation, iterative reconstruction, and/or weight based d osing when appropriate to reduce radiation dose to as low as reasonably achievable (ALARA). [facility]: Dose Right [facility]: CareDose [facility]: Dose Right [facility]: Teradose 4D [facility]: [employer] CONTRAST TYPE AND DOSE: See separate report of the same date. RENAL FUNCTION: GFR > 60. RADIATION DOSE: CT Rad equipment meets quality standard of care and radiation dose reduction techniq ues were employed. CTDIvol: 4.5 - 6.0 mGy. DLP: 668 mGy-cm. . LIMITATIONS: None. FINDINGS: LUNGS AND PLEURA: Pulmonary nodules have improved. Dominant left upper lobe nodule previo usly 2.2 x 2.6 cm, now 1.1 x 2.3 cm. Left lower lobe nodule previously 2.7 x 2.1, now 2.2 x 1.9 cm. No new nodules. HILAR AND MEDIASTINAL STRUCTURES: No identified masses or abnormal nodes. HEART AND VASCULAR STRUCTURES: No aneurysm or dissection. No central pulmonary emboli. No pericardi al effusion. HARDWARE: None in the chest. UPPER ABDOMEN: See separate report of the CT of the abdomen. THYROID AND OTHER SOFT TISSUES: No masses. No adenopathy. BONES: No significant finding. OTHER: Right-sided port tip in the SVC. IMPRESSION: Favorable response to therapy for pulmonary metastasis. TECHNICAL DOCUMENTATION: JOB ID: [id number] Quality ID # [id number]: Final reports with documentation of one or more dose reduction techniques (e.g., Au tomated exposure control, adjustment of the mA and/or kV according to patient size, use of iterative reconstruction technique) 2010 [employer]- All Rights Reserved Reading location - IP/workstation name: [email or web address]
== END ==
LOC: RAD 10:15
PROVIDERS: ATTEND Internal Medicine
DX: C66.1 Malignant neoplasm of right ureter (principal); N20.0 Calculus of kidney; I71.4 Abdominal aortic aneurysm, without rupture; K43.9 Ventral hernia without obstruction or gangrene
CPT/HCPCS: 71260; 74177; 82565

== ENCOUNTER → 2020-04-20 | Outpatient (CLI) | payer MEDICARE ==
--- NOTE | 2020-04-20 13:03 | RADIOLOGY REPORT (SQ) ---
EXAM DESCRIPTION: NM MUGA REST IMAGES COMPLETED DATE/TIME: 04/20/2020 12:17 pm REASON FOR STUDY: C66.1 MALIGNANT NEOPLASM OF RIGHT URETER, Z51.11 ENCOUNTER FOR ANTINEOPLAST C66.1 MALIGNANT NEOPLASM OF RIGHT URETER Z51.11 ENCOUNTER FOR ANTINEOPLASTIC CHEMOTHERAPY R06.02 SHORTNE SS OF BREATH COMPARISON: None. RADIONUCLIDE AND DOSE: 25 mCi technetium 99m labeled red blood cells The route of agent administration: Intravenous TECHNIQUE: Following administration of the radionuclide, gated images of the heart are obtained in t hree projections. Left ventricular functional analysis performed. LIMITATIONS: None. FINDINGS: LEFT VENTRICULAR FUNCTION: EJECTION FRACTION: 62%. END-DIASTOLIC VOLUME: 187 mL. END-SYSTOLIC VOLUME: 69 mL. WALL MOTION: No focal wall motion abnormalities. OTHER: No other significant finding. IMPRESSION: Left ventricular dilatation with a normal ejection fraction of 62%. TECHNICAL DOCUMENTATION: JOB ID: [id number] 2010 [employer]- All Rights Reserved Reading location - IP/workstation name: [email or web address]
== END ==
LOC: RAD 10:50
PROVIDERS: ATTEND Internal Medicine
DX: C66.1 Malignant neoplasm of right ureter (principal); R06.02 Shortness of breath
CPT/HCPCS: 78472; A9560; Q9969

== ENCOUNTER → 2020-06-29 | Outpatient (CLI) | payer MEDICARE ==
--- NOTE | 2020-06-29 14:35 | RADIOLOGY REPORT (SQ) ---
EXAM DESCRIPTION: CT CHEST WITH IMAGES COMPLETED DATE/TIME: 06/29/2020 10:20 am REASON FOR STUDY: URETER CANCER C66.1 MALIGNANT NEOPLASM OF RIGHT URETER COMPARISON: 04/27/2020 and 01/27/2020 TECHNIQUE: CT scan of the chest performed using helical scanning technique with dynamic intravenous contrast injection. Images reviewed with lung, soft tissue and bone windows. Reconstructed coronal and sagittal MPR and MIP images reviewed. All images stored on PACS. All CT scanners at this facility use dose modulation, iterative reconstruction, and/or weight based d osing when appropriate to reduce radiation dose to as low as reasonably achievable (ALARA). [facility]: Dose Right [facility]: CareDose [facility]: Dose Right [facility]: Teradose 4D [facility]: [employer] CONTRAST TYPE AND DOSE: contrast/concentration: Isovue 300.00 mmol/ml; Total Contrast Delivered: 80. 0 ml; Total Saline Delivered: 40.0 ml Creatinine 1.2 RENAL FUNCTION: Creatinine 1.2 RADIATION DOSE: . LIMITATIONS: None. FINDINGS: LUNGS AND PLEURA: Previously described left upper lobe and left lower lobe nodular densiti es demonstrate continued improvement with diminished bulk, now appearing more scar-like with associat ed parenchymal distortion. Right upper lobe scarring appears unchanged. No new nodules or masses. Background of diffuse centrilobular emphysematous change. No pleural effusion. No pneumothorax. HILAR AND MEDIASTINAL STRUCTURES: No identified masses or abnormal nodes. HEART AND VASCULAR STRUCTURES: No aneurysm or dissection. No central pulmonary emboli. No pericardi al effusion. HARDWARE: Right anterior chest wall Port-A-Cath terminates at the cavoatrial junction. UPPER ABDOMEN: See separate report of the CT of the abdomen. THYROID AND OTHER SOFT TISSUES: No masses. No adenopathy. BONES: No significant finding. OTHER: No other significant finding. IMPRESSION: Continued improvement in the appearance of left upper lobe and left lower lobe pulmonary nodules, now demonstrating a more scar-like appearance. Port-A-Cath terminates in the region of the cavoatrial junction. TECHNICAL DOCUMENTATION: JOB ID: [id number] Quality ID # 436: Final reports with documentation of one or more dose reduction techniques (e.g., Au tomated exposure control, adjustment of the mA and/or kV according to patient size, use of iterative reconstruction technique) 2010 [employer]- All Rights Reserved Reading location - IP/workstation name: [email or web address]
--- NOTE | 2020-06-29 14:46 | RADIOLOGY REPORT (SQ) ---
EXAM DESCRIPTION: CT ABD/PELVIS WITH IV ONLY IMAGES COMPLETED DATE/TIME: 06/29/2020 10:20 am REASON FOR STUDY: URETER CANCER C66.1 MALIGNANT NEOPLASM OF RIGHT URETER COMPARISON: 04/27/2020 and 01/27/2020 TECHNIQUE: CT scan of the abdomen and pelvis performed using helical scanning technique with dynamic intravenous contrast injection. No oral contrast. Images reviewed with lung, soft tissue, and bone windows. Reconstructed coronal and sagittal MPR images reviewed. Delayed images for evaluation of the urinary system also acquired. All images stored on PACS. All CT scanners at this facility use dose modulation, iterative reconstruction, and/or weight based d osing when appropriate to reduce radiation dose to as low as reasonably achievable (ALARA). [facility]: Dose Right [facility]: CareDose [facility]: Dose Right [facility]: Teradose 4D [facility]: [employer] CONTRAST TYPE AND DOSE: 80 mL Omnipaque 300- low osmolar. RENAL FUNCTION: Creatinine 1.2 RADIATION DOSE: CT Rad equipment meets quality standard of care and radiation dose reduction techniq ues were employed. CTDIvol: 4.4 - 4.5 mGy. DLP: 566 mGy-cm.. LIMITATIONS: None. FINDINGS: LOWER CHEST: See separate report of the CT of the chest. LIVER: Stable appearance. No evidence of mass or intrahepatic biliary dilatation. SPLEEN: Normal size. No focal lesions. PANCREAS: No masses. No significant calcifications. No adjacent inflammation or peripancreatic fluid collections. Pancreatic duct not dilated. GALLBLADDER: Surgically absent. ADRENAL GLANDS: Stable nodularity of the left adrenal gland. RIGHT KIDNEY AND URETER: No solid masses. Re- demonstration of superior pole atrophy. No significa nt calcifications. No hydronephrosis. A ureteral stent demonstrates stable, appropriate positionin g. LEFT KIDNEY AND URETER: Diffusely atrophic. No solid masses. No acute findings. AORTA AND VESSELS: Infrarenal abdominal aortic aneurysm with smooth mural thrombus appears stable in size. RETROPERITONEUM: No retroperitoneal adenopathy, hemorrhage or masses. BOWEL AND PERITONEAL CAVITY: No masses or inflammatory changes. No free fluid or peritoneal masses. APPENDIX: Not visualized. PELVIS: No mass. No free fluid. Normal bladder. ABDOMINAL WALL: Re- demonstration of a large umbilical hernia containing a loop of transverse colon w ithout evidence of obstruction or incarceration. BONES: No significant or acute findings. OTHER: No other significant finding. IMPRESSION: Stable CT appearance of the abdomen and pelvis demonstrating focal atrophy of the superi or pole of the right kidney, stable position of a right ureteral stent, stable size and appearance of an infrarenal abdominal aortic aneurysm, and persistent umbilical hernia containing a loop of transv erse colon without evidence of obstruction or incarceration. No acute findings. No evidence of meta static disease. TECHNICAL DOCUMENTATION: JOB ID: [id number] Quality ID # 436: Final reports with documentation of one or more dose reduction techniques (e.g., Au tomated exposure control, adjustment of the mA and/or kV according to patient size, use of iterative reconstruction technique) 2010 [employer]- All Rights Reserved Reading location - IP/workstation name: [email or web address]
== END ==
LOC: RAD 09:32
PROVIDERS: ATTEND Physician Assistant Medical
DX: C66.1 Malignant neoplasm of right ureter (principal); I71.4 Abdominal aortic aneurysm, without rupture; K42.9 Umbilical hernia without obstruction or gangrene
CPT/HCPCS: 82565; 71260; 74177; J1642

== ENCOUNTER → 2020-07-14 | Outpatient (CLI) | payer MEDICARE ==
--- NOTE | 2020-07-14 18:32 | XCELERA REPORT ---
[address] [address] Transthoracic Echocardiogram Report Name: JERILYN MCCARTY Age: 79 yrs Gender: Female : 1940 Patient Status: Outpatient Patient Location: [facility] Study Date: 07/14/2020 02:22 PM History: Chemotherapy Assess LVEF Height: 64 in Weight: 113 lb BSA: 1.5 m2 Procedure: A complete two-dimensional transthoracic echocardiogram was performed (2D, M-mode, spectral and color flow Doppler). The study was technically adequate with some images being suboptimal in quality. Reason For Study: CHEMOTHERAPY Previous Evaluation: A previous study was performed on 10/01/2019 LVEF was low normal 52%. History: Chemotherapy Assess LVEF. Ordering Physician: SUSANNAH JEONG Performed By: Marielena Melo Interpretation Summary Compared to prior study dated 10/01/2019 there has been a mild decrease in LVEF estimated now at 40-45%( previously low normal ~52%). The study was technically adequate with some images being suboptimal in quality. Left ventricular systolic function is mildly reduced. The Ejection Fraction estimate is 40-45% The right ventricle is normal in size and function. There is a trace amount of mitral regurgitation There is no aortic valve stenosis There is a trace amount of tricuspid regurgitation Doppler findings do not suggest pulmonary hypertension. There is no pericardial effusion. Compared to prior study dated 10/01/2019 there has been a mild decrease in LVEF estimated now at 40-45%( previously low normal ~52%) MMode/2D Measurements & Calculations RVDd: 1.9 cm LVIDd: 4.4 cm FS: 19.8 % Ao root diam: 2.6 cm IVSd: 0.97 cm LVIDs: 3.5 cm EDV(Teich): 86.1 ml Ao root area: 5.2 cm2 LVPWd: 0.86 cm ESV(Teich): 51.0 ml EF(Teich): 40.8 % Doppler Measurements & Calculations MV E max larry: MV dec slope: Ao V2 max: LV V1 max P.5 cm/sec 299.1 cm/sec2 101.4 cm/sec 4.5 mmHg MV A max laryr: MV dec time: Ao max P.1 mmHgLV V1 max: 77.1 cm/sec 0.19 sec 106.5 cm/sec MV E/A: 0.72 MR max larry: PA V2 max: PI end-d larry: TR max larry: 475.9 cm/sec 89.5 cm/sec 116.5 cm/sec 246.7 cm/sec MR max PG: PA max P.4 mmHg TR max P.8 mmHg 24.4 mmHg Left Ventricle The left ventricle is normal in size. There is normal left ventricular wall thickness. Left ventricular systolic function is mildly reduced. The Ejection Fraction estimate is 40-45%. Doppler measurements suggest impaired left ventricular relaxation, which is associated with grade I/IV or mild diastolic dysfunction. There is mild global hypokinesis of the left ventricle. Right Ventricle The right ventricle is normal in size and function. Atria The right atrium is normal. The left atrium is borderline dilated. The interatrial septum is intact with no evidence for an atrial septal defect. There is no Doppler evidence for an interatrial shunt. Mitral Valve The mitral valve is grossly normal. There is no mitral valve stenosis. There is a trace amount of mitral regurgitation. Aortic Valve The aortic valve is grossly normal. The aortic valve opens well. The aortic valve is trileaflet. There is no aortic valve stenosis. No aortic regurgitation is present. Tricuspid Valve The tricuspid valve is normal in structure and function. There is a trace amount of tricuspid regurgitation. Doppler findings do not suggest pulmonary hypertension. Pulmonic Valve The pulmonic valve is normal in structure and function. There is no pulmonic valvular stenosis. There is a trace amount of pulmonic regurgitation. Great Vessels The aortic root is normal size. The inferior vena cava appeared normal and decreased > 50% with respiration (RAP 5-10 mmHg). Effusions There is no pericardial effusion. : SUSANNAH JEONG, Leonardo
== END ==
LOC: SP 15:03
PROVIDERS: ATTEND Physician Assistant Medical
DX: C66.1 Malignant neoplasm of right ureter (principal); Z08 Encounter for follow-up examination after completed treatment for malignant neoplasm; Z51.11 Encounter for antineoplastic chemotherapy; Z79.899 Other long term (current) drug therapy
CPT/HCPCS: 93306